=== PATIENT | female | born 1930 | race Two or more races ===

== ENCOUNTER 2017-12-23 17:35 | Inpatient (IN) | payer MEDICARE, MEDICAID ==
[~2017-12-23] VITALS: Ht 160 cm; Wt 54.4 kg
[~2017-12-23 17:35] MED LIST: ATORVASTATIN CA20 MG ORAL; CATAPRES0.1 MG ORAL; DOCUSATE SODIU100 MG ORAL; DULCOLAX10 MG RC; FAMOTIDINE20 MG ORAL; FLEET ENEMA133 ML RECTAL; FOLIC ACID1 MG ORAL; FUROSEMIDE40 MG/5 ML ORAL; HYDRALAZINE HCL25 M1 ORAL; MILK OF MA400 MG/51 ORAL; TYLENOL EXTRA500 MG ORAL; VITAMIN B COMP1 EAC2 ORAL; VITAMIN D250000 UNI1 ORAL
[2017-12-23 17:42] VITALS: BP 163/58
[2017-12-23 18:30] VITALS: BP 170/68
[2017-12-23 18:31] LABS: HEMATOCRIT 31.2 % (37.0-47.0); MEAN CORPUSCULAR VOLUME 87 FL (80-99); PLATELET COUNT 219 K/UL (150-450); RED BLOOD COUNT 3.58 M/UL (4.20-5.40); RED CELL DISTRIBUTION WIDTH 13.2 % (11.6-14.8); WHITE BLOOD COUNT 8.5 K/UL (4.8-10.8)
[2017-12-23 18:35] LABS: APPEARANCE,URINE CLEAR; BILIRUBIN, URINE NEGATIVE (NEGATIVE); GLUCOSE, URINE (UA) NEGATIVE (NEGATIVE); KETONES,URINE NEGATIVE (NEGATIVE); LEUKOCYTE ESTERASE ,URINE 2+ (NEGATIVE); NITRITE,URINE NEGATIVE (NEGATIVE); PH,URINE 5 (4.5-8.0); PROTEIN,URINE 3+ (NEGATIVE); UROBILINOGEN,URINE NORMAL MG/DL (0.0-1.0)
[2017-12-23 18:40] LABS: COLOR,URINE YELLOW
[2017-12-23 18:53] LABS: ANION GAP 9 mmol/L (5-15); BLOOD UREA NITROGEN 20 mg/dL (7-18); CALCIUM 8.8 MG/DL (8.5-10.1); CARBON DIOXIDE 29 MMOL/L (21-32); CHLORIDE 103 MMOL/L (98-107); CREATININE 1.1 MG/DL (0.55-1.30); POTASSIUM 3.9 MMOL/L (3.5-5.1); SODIUM 141 MMOL/L (136-145)
[2017-12-23 19:07] LABS: ALANINE AMINOTRANSFERASE 23 U/L (12-78); ALBUMIN 3.5 G/DL (3.4-5.0); ALBUMIN/GLOBULIN RATIO 0.7 (1.0-2.7); ALKALINE PHOSPHATASE 92 U/L (46-116); ASPARTATE AMINO TRANSFERASE 24 U/L (15-37); BILIRUBIN,TOTAL 0.2 MG/DL (0.2-1.0); CKMB 1.9 NG/ML (0.0-3.6); CREATINE KINASE 125 U/L (26-308)
[2017-12-23] MEDS ORDERED: HYDROMORPHONE HC2 M1 PO (19:08)
[2017-12-23 19:10] VITALS: BP 170/68
[2017-12-23] MEDS ORDERED: DUONEB 0.5-3(2.53 ML HHN (19:13)
[2017-12-23] MEDS ORDERED: IPRAT-ALBUT 0.5-3 ML IH (19:13)
[2017-12-23] MEDS ORDERED: Midazolam 2mg/2ml Inj IVP ONE (19:15)
[2017-12-23] MEDS ORDERED: FLEET ENEMA133 ML RECTAL (19:20)
[2017-12-23] MEDS ORDERED: FUROSEMIDE20 M1 ORAL (19:25)
[2017-12-23] MEDS ORDERED: MULTIVITAMINS1 EAC8 ORAL (19:29)
[2017-12-23] MEDS ORDERED: TRAMADOL HCL50 MG ORAL (19:30)
[2017-12-23] MEDS ORDERED: ACETAMINOPHEN325 M1 ORAL (19:36)
[2017-12-23] MEDS ORDERED: VITAMIN B COMP1 EAC7 PO (19:38)
[2017-12-23] MEDS ORDERED: VITAMIN C500 M1 ORAL (19:39)
[2017-12-23 20:27] VITALS: BP 153/58
[2017-12-23] MEDS ORDERED: Albuterol/Ipratropium 3ml neb HHN PRN (20:45)
[2017-12-23] MEDS ORDERED: Miralax 17gm pkt ORAL PRN (20:45)
[2017-12-23 22:32] VITALS: BP 157/61
[2017-12-23] MEDS ORDERED: HYDROmorphone 2mg tab ORAL PRN (23:00)
[2017-12-23 23:23] VITALS: BP 132/48
[2017-12-23] MEDS ORDERED: Heparin 5000 units/ml inj ONE (23:54)
[2017-12-23] MEDS: Heparin 5000 units/ml inj SUBQ SCH (23:56)
[2017-12-24] VITALS (15 sets, daily range): BP systolic 105–160; BP diastolic 39–72
[2017-12-24 06:25] LABS: BASOPHILS % (AUTO) 0.8 % (0.0-2.0); EOSINOPHILS % (AUTO) 0.2 % (0.0-3.0); HEMATOCRIT 30.5 % (37.0-47.0); HEMOGLOBIN 9.8 G/DL (12.0-16.0); LYMPHOCYTES % (AUTO) 8.1 % (20.0-45.0); MEAN CORPUSCULAR VOLUME 87 FL (80-99); MONOCYTES % (AUTO) 9.8 % (1.0-10.0); NEUTROPHILS % (AUTO) 81.2 % (45.0-75.0); PLATELET COUNT 242 K/UL (150-450); RED CELL DISTRIBUTION WIDTH 13.1 % (11.6-14.8)
[2017-12-24 07:04] LABS: ALBUMIN 3.2 G/DL (3.4-5.0); ANION GAP 10 mmol/L (5-15); BLOOD UREA NITROGEN 20 mg/dL (7-18); CALCIUM 8.9 MG/DL (8.5-10.1); CARBON DIOXIDE 31 MMOL/L (21-32); CHLORIDE 98 MMOL/L (98-107); CREATININE 1.2 MG/DL (0.55-1.30); PHOSPHORUS 2.8 MG/DL (2.5-4.9); POTASSIUM 3.7 MMOL/L (3.5-5.1); SODIUM 139 MMOL/L (136-145)
--- NOTE | 2017-12-24 07:09 | Emergency Room Report ---
History of Present Illness General Chief Complaint: Dyspnea/Respdistress Source: Medical Record Present Illness HPI Patient present with complaints of shortness of breath Patient appears to be sent in from nursing facility There is no other family presents Patient appears to have history of CHF Upon arrival is noncompliant Combative with the staff Patient herself does not provide any history limiting the history of present illness Unknown duration of symptoms Unknown regarding fevers Allergies: Coded Allergies: No Known Allergies (Unverified , 07/31/16) Patient History Limited by: medical condition Past Medical History: see triage record Pertinent Family History: unable to obtain Reviewed Nursing Documentation: PMH: Agreed; PSxH: Agreed Nursing Documentation-PMH Past Medical History Deferred: Pt Cognitively Impaired Past Medical History: No History, Except For Hx Hypertension: Yes Hx Diabetes: Yes - Anemia, Vitamin D deficiency Hx Dementia: Yes Review of Systems All Other Systems: limited - Other than the ones mentioned in the history of present illness all others are reviewed however they do stay limited due to the patient's mental status Physical Exam Vital Signs Date Time Temp Pulse Resp B/P (MAP) Pulse Ox O2 Delivery O2 Flow Rate FiO2 12/23/17 17:32 98.1 116 18 173/69 100 Non-Rebreather 15.0 98.1 12/23/17 18:20 50 Sp02 EP Interpretation: reviewed, normal General Appearance: moderate distress - Tachypneic, short of breath Head: normocephalic, atraumatic Eyes: bilateral eye PERRL, bilateral eye EOMI ENT: normal pharynx, no angioedema Neck: supple Respiratory: crackles - Tachypneic with crackles and rales bilateral lower lobe , patient also has audible upper airway rattling consistent with liquid Cardiovascular #1: no murmur, tachycardia Gastrointestinal: non tender, soft, no mass Musculoskeletal: normal inspection - Patient does not follow commands however moves all extremities without focal deficit Neurologic: responsive, motor strength/tone normal Skin: other - Mild edema bilaterally lower extremity Lymphatic: no adenopathy Procedures Critical Care Time Critical Care Time 45 minutes for multiple re-evaluations, critical presentation with concern for respiratory failure and cardiopulmonary arrest, not including any procedural time Medical Decision Making Diagnostic Impression: Primary Impression: Respiratory distress Additional Impression: CHF (congestive heart failure) ER Course Patient is a fairly complex patient with multiple differential to consideration including but not limited to cardiac cardiopulmonary and vascular emergencies Patient was attempted suctioning Has episodes of hypoxia Requiring BiPAP Patient's x-rays consistent with CHF Patient provided further diuretics At this time remains in critical condition Airway intubation has not been performed as the patient appears to be tolerating BiPAP well however is brittle and requires close inpatient care Labs Test 12/23/17 17:45 12/23/17 18:20 12/24/17 05:20 White Blood Count 8.5 K/UL (4.8-10.8) 8.0 K/UL (4.8-10.8) Red Blood Count 3.58 M/UL (4.20-5.40) 3.50 M/UL (4.20-5.40) Hemoglobin 10.0 G/DL (12.0-16.0) 9.8 G/DL (12.0-16.0) Hematocrit 31.2 % (37.0-47.0) 30.5 % (37.0-47.0) Mean Corpuscular Volume 87 FL (80-99) 87 FL (80-99) Mean Corpuscular Hemoglobin 27.9 PG (27.0-31.0) 27.9 PG (27.0-31.0) Mean Corpuscular Hemoglobin Concent 32.1 G/DL (32.0-36.0) 32.1 G/DL (32.0-36.0) Red Cell Distribution Width 13.2 % (11.6-14.8) 13.1 % (11.6-14.8) Platelet Count 219 K/UL (150-450) 242 K/UL (150-450) Mean Platelet Volume 5.9 FL (6.5-10.1) 7.1 FL (6.5-10.1) Neutrophils (%) (Auto) % (45.0-75.0) 81.2 % (45.0-75.0) Lymphocytes (%) (Auto) % (20.0-45.0) 8.1 % (20.0-45.0) Monocytes (%) (Auto) % (1.0-10.0) 9.8 % (1.0-10.0) Eosinophils (%) (Auto) % (0.0-3.0) 0.2 % (0.0-3.0) Basophils (%) (Auto) % (0.0-2.0) 0.8 % (0.0-2.0) Differential Total Cells Counted 100 Neutrophils % (Manual) 83 % (45-75) Lymphocytes % (Manual) 7 % (20-45) Monocytes % (Manual) 8 % (1-10) Eosinophils % (Manual) 0 % (0-3) Basophils % (Manual) 0 % (0-2) Band Neutrophils 2 % (0-8) Platelet Estimate Adequate Platelet Morphology Normal Anisocytosis 1+ Sodium Level 141 MMOL/L (136-145) 139 MMOL/L (136-145) Potassium Level 3.9 MMOL/L (3.5-5.1) 3.7 MMOL/L (3.5-5.1) Chloride Level 103 MMOL/L (98-107) 98 MMOL/L (98-107) Carbon Dioxide Level 29 MMOL/L (21-32) 31 MMOL/L (21-32) Anion Gap 9 mmol/L (5-15) 10 mmol/L (5-15) Blood Urea Nitrogen 20 mg/dL (7-18) 20 mg/dL (7-18) Creatinine 1.1 MG/DL (0.55-1.30) 1.2 MG/DL (0.55-1.30) Estimat Glomerular Filtration Rate mL/min (>60) mL/min (>60) Glucose Level 238 MG/DL (74-106) 146 MG/DL (74-106) Lactic Acid Level 1.80 mmol/L (0.66-2.22) Calcium Level 8.8 MG/DL (8.5-10.1) 8.9 MG/DL (8.5-10.1) Total Bilirubin 0.2 MG/DL (0.2-1.0) Aspartate Amino Transf (AST/SGOT) 24 U/L (15-37) Alanine Aminotransferase (ALT/SGPT) 23 U/L (12-78) Alkaline Phosphatase 92 U/L (46-116) Total Creatine Kinase 125 U/L (26-308) Creatine Kinase MB 1.9 NG/ML (0.0-3.6) Creatine Kinase MB Relative Index 1.5 Troponin I 0.000 ng/mL (0.000-0.056) 0.003 ng/mL (0.000-0.056) Pro-B-Type Natriuretic Peptide 836 pg/mL (0-125) Total Protein 8.8 G/DL (6.4-8.2) Albumin 3.5 G/DL (3.4-5.0) 3.2 G/DL (3.4-5.0) Globulin 5.3 g/dL Albumin/Globulin Ratio 0.7 (1.0-2.7) Lipase 135 U/L (73-393) Urine Color Yellow Urine Appearance Clear Urine pH 5 (4.5-8.0) Urine Specific [place] 1.020 (1.005-1.035) Urine Protein 3+ (NEGATIVE) Urine Glucose (UA) Negative (NEGATIVE) Urine Ketones Negative (NEGATIVE) Urine Occult Blood 4+ (NEGATIVE) Urine Nitrite Negative (NEGATIVE) Urine Bilirubin Negative (NEGATIVE) Urine Urobilinogen Normal MG/DL (0.0-1.0) Urine Leukocyte Esterase 2+ (NEGATIVE) Urine RBC 10-15 /HPF (0 - 2) Urine WBC 5-10 /HPF (0 - 2) Urine Squamous Epithelial Cells Few /LPF (NONE/OCC) Urine Amorphous Sediment Few /LPF (NONE) Urine Bacteria Many /HPF (NONE) Urine Yeast Few /HPF (NONE) Phosphorus Level 2.8 MG/DL (2.5-4.9) EKG Diagnostic Results Rate: normal Rhythm: NSR ST Segments: other - Nonspecific ST and T-wave changes Rhythm Strip Diag. Results EP Interpretation: yes Rate: 89 Rhythm: NSR, no PVC's, no ectopy Chest X-Ray Diagnostic Results Chest X-Ray Diagnostic Results : Chest X-Ray Ordered: Yes # of Views/Limited/Complete: 1 View EP Interpretation: Yes Interpretation: no consolidation, no pneumothorax, other - Cardiomegaly, pulmonary congestion Impression: Other - CHF Electronically Signed by: Karthik Fernandez DO Last Vital Signs Date Time Temp Pulse Resp B/P (MAP) Pulse Ox O2 Delivery O2 Flow Rate FiO2 12/24/17 06:50 137/83 12/24/17 04:41 99 21 100 Facial 30 12/24/17 04:00 15.0 12/24/17 01:00 97.0 97.0 Status: improved Disposition: ADMITTED INPATIENT Condition: Critical Referrals: NON PHYSICIAN (PCP) Karthik Fernandez DO December 24, 2017 07:09
--- NOTE | 2017-12-24 08:55 | Diagnostic Imaging Report ---
Indication: Shortness of breath Technique: One view of the chest Comparison: 08/07/2016 Findings: Patient is rotated to the right. Mild generalized interstitial prominence may be on the basis of senescent changes. No definite acute infiltrates, effusions, or congestion. Normal heart size. Tortuous calcified aorta. No significant change Impression: No definite acute process
[2017-12-24] MEDS: Heparin 5000 units/ml inj SUBQ SCH ×2 (09:27→22:03)
--- NOTE | 2017-12-24 10:03 | Diagnostic Imaging Report ---
Indication: Shortness of breath Technique: One view of the chest Comparison: 12/23/2017 Findings: Central bronchial wall thickening and prominent interstitial markings are unchanged, likely on the basis of senescent changes. Heart size is normal. Pleural spaces are clear. There is a healed fracture deformity of the left shoulder better visualized on the current exam Impression: No definite acute process. Findings as noted
--- NOTE | 2017-12-24 10:34 | History and Physical ---
History of Present Illness General Date patient seen: December 24, 2017 Reason for Hospitalization: Dyspnea/Respdistress Present Illness HPI 87 year old female with hx of COPD, HTN, care home resident presented to ER by paramedics with complaints of shortness of breath Upon arrival to ER she was Combative with the staff. Patient herself didn't not provide any history. She was in respiratory failure and was put on BIPAP and transferred to ICU. Pt is currently dyspnic and confused. She doesn't provide any further history. Allergies: Coded Allergies: No Known Allergies (Unverified , 07/31/16) Medication History Scheduled Ascorbic Acid* (Vitamin C*), 500 MG ORAL DAILY, (Reported) Atorvastatin Calcium* (Atorvastatin Calcium*), 20 MG ORAL BEDTIME, (Reported) Clonidine Hcl* (Catapres*), 0.1 MG ORAL EVERY 8 HOURS, (Reported) Docusate Sodium* (Docusate Sodium*), 100 MG ORAL DAILY, (Reported) Famotidine (Famotidine), 20 MG ORAL DAILY, (Reported) Folic Acid* (Folic Acid*), 1 MG ORAL DAILY, (Reported) Furosemide (Furosemide), 20 MG ORAL 2XW Furosemide* (Lasix*), 20 MG ORAL TWICE A WEEK, (Reported) Hydralazine Hcl* (Hydralazine Hcl*), 25 MG ORAL BID, (Reported) Ipratropium/Albuterol Sulfate (Iprat-Albut 0.5-3(2.5) Mg/3 Ml), 3 ML IH EVERY 4 HOURS, (Reported) Multivitamin With Minerals (Multivitamins With Minerals*), 1 TAB ORAL DAILY, ( Reported) Na Phos,M-B/Na Phos,Di-Ba* (Fleet Enema*), 133 ML RECTAL NEEDED, (Reported) Tramadol Hcl* (Ultram*), 50 MG ORAL ONCE, (Reported) Vit B Comp/C/Fa/Iron/Vit E (Vitamin B Complex Tablet), 1 TAB PO DAILY, (Reported ) Scheduled PRN Acetaminophen* (Tylenol Extra Strength*), 500 MG ORAL Q6H PRN for For Pain, ( Reported) Acetaminophen* (Acetaminophen 325MG Tablet*), 650 MG ORAL Q6H PRN for For Pain, (Reported) Bisacodyl (Dulcolax), 10 MG RC for Constipation, (Reported) Hydromorphone Hcl (Hydromorphone Hcl), 2 MG PO EVERY 6 HOURS PRN for For Pain, ( Reported) Magnesium Hydroxide* (Milk Of Magnesia*), 30 ML ORAL DAILY PRN for Constipation, (Reported) Discontinued Medications Ergocalciferol (Vitamin D2)* (Vitamin D*), 50,000 UNIT ORAL ONCE A WEEK, ( Reported) Discontinued Reason: Pt stopped taking med Vitamin B Complex (Vitamin B Complex), 1 CAP ORAL, (Reported) Discontinued Reason: Prescription changed Patient History Healthcare decision maker Resuscitation status Full Code Advanced Directive on File No Past Medical/Surgical History Past Medical/Surgical History: (1) HTN (hypertension) (2) COPD (chronic obstructive pulmonary disease) Review of Systems Respiratory: Reports: shortness of breath, wheezing, [place] All Other Systems: negative except mentioned in HPI Physical Exam General Appearance: cachetic Lines, tubes and drains: peripheral HEENT: normocephalic Neck: non-tender, normal alignment Respiratory/Chest: chest wall non-tender, lungs clear Breasts: no masses Cardiovascular/Chest: normal peripheral pulses Abdomen: normal bowel sounds, non tender Genitourinary/Rectal: normal genital exam, normal rectal exam, normal prostate exam Extremities: normal range of motion Last 24 Hour Vital Signs Date Time Temp Pulse Resp B/P (MAP) Pulse Ox O2 Delivery O2 Flow Rate FiO2 12/24/17 10:00 105 25 126/50 100 Nasal Cannula 3.0 12/24/17 09:00 95 127/52 100 Nasal Cannula 3.0 12/24/17 08:00 99 12/24/17 08:00 3.0 12/24/17 08:00 97 25 130/52 100 Nasal Cannula 3.0 12/24/17 07:01 117 33 100 Facial 30 12/24/17 07:00 98.4 117 25 129/72 99 Bi-pap 30 98.4 12/24/17 06:50 137/83 12/24/17 06:00 106 25 160/69 100 Bi-pap 30 12/24/17 05:00 103 26 126/61 100 Bi-pap 30 12/24/17 04:41 99 21 100 Facial 30 12/24/17 04:00 104 18 135/56 100 Bi-pap 30 12/24/17 04:00 15.0 30 12/24/17 03:00 92 18 116/56 100 Bi-pap 30 12/24/17 02:33 91 19 99 Facial 30 12/24/17 02:00 91 19 122/39 99 Bi-pap 30 12/24/17 01:09 90 18 100 Facial 30 12/24/17 01:00 97.0 109 25 116/72 100 Bi-pap 50 97.0 12/24/17 01:00 15.0 40 12/24/17 01:00 109 12/24/17 00:05 104 17 143/87 100 Bi-pap 12/23/17 23:23 98.7 99 16 132/48 100 15.0 40 98.7 12/23/17 22:53 100 17 100 Facial 40 12/23/17 22:32 98.7 107 20 157/61 100 15.0 40 98.7 12/23/17 22:00 132/68 12/23/17 20:52 15.0 40 12/23/17 20:52 108 25 100 Facial 40 12/23/17 20:27 98.7 104 24 153/58 100 Bi-pap 15.0 50 98.7 12/23/17 19:10 98.7 110 22 170/68 100 Bi-pap 15.0 50 98.7 12/23/17 18:33 114 25 Bi-pap 50 18 18:31 114 25 100 Facial 50 12/23/17 18:30 98.7 108 24 170/68 100 Non-Rebreather 15.0 50 98.7 12/23/17 18:20 15.0 50 12/23/17 17:42 118 27 Non-Rebreather 15.0 12/23/17 17:42 98.9 118 27 163/58 100 Non-Rebreather 15.0 98.9 12/23/17 17:32 98.1 116 18 173/69 100 Non-Rebreather 15.0 98.1 Intake and Output 12/23/17 12/24/17 19:00 07:00 Intake Total 0 ml Output Total 480 ml Balance -480 ml Intake Oral 0 ml Output Urine Total 480 ml # Voids 1 1 Laboratory Tests Test 12/23/17 17:45 12/23/17 18:20 12/24/17 05:20 White Blood Count 8.5 K/UL (4.8-10.8) 8.0 K/UL (4.8-10.8) Red Blood Count 3.58 M/UL (4.20-5.40) L 3.50 M/UL (4.20-5.40) L Hemoglobin 10.0 G/DL (12.0-16.0) L 9.8 G/DL (12.0-16.0) L Hematocrit 31.2 % (37.0-47.0) L 30.5 % (37.0-47.0) L Mean Corpuscular Volume 87 FL (80-99) 87 FL (80-99) Mean Corpuscular Hemoglobin 27.9 PG (27.0-31.0) 27.9 PG (27.0-31.0) Mean Corpuscular Hemoglobin Concent 32.1 G/DL (32.0-36.0) 32.1 G/DL (32.0-36.0) Red Cell Distribution Width 13.2 % (11.6-14.8) 13.1 % (11.6-14.8) Platelet Count 219 K/UL (150-450) 242 K/UL (150-450) Mean Platelet Volume 5.9 FL (6.5-10.1) L 7.1 FL (6.5-10.1) Neutrophils (%) (Auto) % (45.0-75.0) 81.2 % (45.0-75.0) H Lymphocytes (%) (Auto) % (20.0-45.0) 8.1 % (20.0-45.0) L Monocytes (%) (Auto) % (1.0-10.0) 9.8 % (1.0-10.0) Eosinophils (%) (Auto) % (0.0-3.0) 0.2 % (0.0-3.0) Basophils (%) (Auto) % (0.0-2.0) 0.8 % (0.0-2.0) Differential Total Cells Counted 100 Neutrophils % (Manual) 83 % (45-75) H Lymphocytes % (Manual) 7 % (20-45) L Monocytes % (Manual) 8 % (1-10) Eosinophils % (Manual) 0 % (0-3) Basophils % (Manual) 0 % (0-2) Band Neutrophils 2 % (0-8) Platelet Estimate Adequate Platelet Morphology Normal Anisocytosis 1+ Sodium Level 141 MMOL/L (136-145) 139 MMOL/L (136-145) Potassium Level 3.9 MMOL/L (3.5-5.1) 3.7 MMOL/L (3.5-5.1) Chloride Level 103 MMOL/L (98-107) 98 MMOL/L (98-107) Carbon Dioxide Level 29 MMOL/L (21-32) 31 MMOL/L (21-32) Anion Gap 9 mmol/L (5-15) 10 mmol/L (5-15) Blood Urea Nitrogen 20 mg/dL (7-18) H 20 mg/dL (7-18) H Creatinine 1.1 MG/DL (0.55-1.30) 1.2 MG/DL (0.55-1.30) Estimat Glomerular Filtration Rate mL/min (>60) mL/min (>60) Glucose Level 238 MG/DL (74-106) H 146 MG/DL (74-106) H Lactic Acid Level 1.80 mmol/L (0.66-2.22) Calcium Level 8.8 MG/DL (8.5-10.1) 8.9 MG/DL (8.5-10.1) Total Bilirubin 0.2 MG/DL (0.2-1.0) Aspartate Amino Transf (AST/SGOT) 24 U/L (15-37) Alanine Aminotransferase (ALT/SGPT) 23 U/L (12-78) Alkaline Phosphatase 92 U/L (46-116) Total Creatine Kinase 125 U/L (26-308) Creatine Kinase MB 1.9 NG/ML (0.0-3.6) Creatine Kinase MB Relative Index 1.5 Troponin I 0.000 ng/mL (0.000-0.056) 0.003 ng/mL (0.000-0.056) Pro-B-Type Natriuretic Peptide 836 pg/mL (0-125) H Total Protein 8.8 G/DL (6.4-8.2) H Albumin 3.5 G/DL (3.4-5.0) 3.2 G/DL (3.4-5.0) L Globulin 5.3 g/dL Albumin/Globulin Ratio 0.7 (1.0-2.7) L Lipase 135 U/L (73-393) Urine Color Yellow Urine Appearance Clear Urine pH 5 (4.5-8.0) Urine Specific [place] 1.020 (1.005-1.035) Urine Protein 3+ (NEGATIVE) H Urine Glucose (UA) Negative (NEGATIVE) Urine Ketones Negative (NEGATIVE) Urine Occult Blood 4+ (NEGATIVE) H Urine Nitrite Negative (NEGATIVE) Urine Bilirubin Negative (NEGATIVE) Urine Urobilinogen Normal MG/DL (0.0-1.0) Urine Leukocyte Esterase 2+ (NEGATIVE) H Urine RBC 10-15 /HPF (0 - 2) H Urine WBC 5-10 /HPF (0 - 2) H Urine Squamous Epithelial Cells Few /LPF (NONE/OCC) Urine Amorphous Sediment Few /LPF (NONE) H Urine Bacteria Many /HPF (NONE) H Urine Yeast Few /HPF (NONE) H Phosphorus Level 2.8 MG/DL (2.5-4.9) Microbiology Date/Time Source Procedure Growth Status 12/23/17 18:20 Urine,Clean Catch Urine Culture - Preliminary Resulted Height (Feet): 5 Height (Inches): 3.00 Weight (Pounds): 119 Medications Current Medications Medications (Trade) Dose Ordered Sig/Janessa Route PRN Reason Start Time Stop Time Status Last Admin Dose Admin Acetaminophen (Tylenol) 650 mg Q4H PRN ORAL T>100.5 12/23/17 20:45 01/22/18 20:44 Albuterol/ Ipratropium (Albuterol/ Ipratropium) 3 ml Q4H PRN HHN Shortness of Breath 12/23/17 20:45 12/28/17 20:44 Clonidine HCl (Catapres Tab) 0.1 mg EVERY 8 HOURS ORAL 12/23/17 22:00 01/22/18 21:59 12/24/17 06:50 Dextrose (Dextrose 50%) 25 ml ONCE PRN IV Hypoglycemia 12/23/17 21:00 01/22/18 20:59 Dextrose (Dextrose 50%) 50 ml ONCE PRN IV hypoglycemia 12/23/17 21:00 01/22/18 20:59 Furosemide (Lasix) 40 mg EVERY 8 HOURS IV 12/24/17 06:00 01/23/18 05:59 12/24/17 06:03 Heparin Sodium (Porcine) (Heparin 5000 units/ml) 5,000 units EVERY 12 HOURS SUBQ 12/23/17 23:00 01/22/18 22:59 12/24/17 09:27 Hydromorphone HCl (Dilaudid) 2 mg Q6H PRN ORAL For Pain > 7 12/23/17 23:00 12/30/17 22:59 Ondansetron HCl (Zofran) 4 mg Q6H PRN IVP Nausea & Vomiting 12/23/17 20:45 01/22/18 20:44 Polyethylene Glycol (Miralax) 17 gm DAILYPRN PRN ORAL Constipation 12/23/17 20:45 01/22/18 20:44 Temazepam (Restoril) 15 mg HSPRN PRN ORAL Insomnia 12/23/17 21:00 12/30/17 20:59 12/24/17 01:00 Assessment/Plan Problem List: (1) Acute respiratory failure ICD Codes: J96.00 - Acute respiratory failure, unspecified whether with hypoxia or hypercapnia SNOMED: 01295225 (2) COPD (chronic obstructive pulmonary disease) ICD Codes: J44.9 - Chronic obstructive pulmonary disease, unspecified SNOMED: 83498998 (3) HTN (hypertension) ICD Codes: I10 - Essential (primary) hypertension SNOMED: 06435662 Respiratory: monitor respiratory rate, adjust FIO2 Cardiac: continue to monitor HR/BP Renal: F/U I&O, keep IV fluid Infectious Disease: check cultures Gastrointestinal: start feedings Endocrine: monitor blood sugar Hematologic: monitor H/H Neurologic: PRN Ativan, PRN Morphine Prophylaxis: Protonix, Heparin Time Spent (Minutes): 40 Notes Reviewed: nurse researcher, cardio Discussed with: nurses, consultants, caser in Maureen Perkins MD December 24, 2017 10:34
[2017-12-24] MEDS ORDERED: Promethazine/Codeine 5ml UD ORAL PRN ×2 (11:00→15:00)
--- NOTE | 2017-12-24 11:02 | Consultation ---
History of Present Illness General Date patient seen: December 24, 2017 Chief Complaint: Dyspnea/Respdistress Present Illness HPI 87 year old female with hx of COPD, HTN, and dementia half-way resident presented to ER by paramedics with complaints of shortness of breath. the pt is confused and pw waxing and waning of consciousness and hallucinating Allergies: Coded Allergies: No Known Allergies (Unverified , 07/31/16) Medication History Scheduled Ascorbic Acid* (Vitamin C*), 500 MG ORAL DAILY, (Reported) Atorvastatin Calcium* (Atorvastatin Calcium*), 20 MG ORAL BEDTIME, (Reported) Clonidine Hcl* (Catapres*), 0.1 MG ORAL EVERY 8 HOURS, (Reported) Docusate Sodium* (Docusate Sodium*), 100 MG ORAL DAILY, (Reported) Famotidine (Famotidine), 20 MG ORAL DAILY, (Reported) Folic Acid* (Folic Acid*), 1 MG ORAL DAILY, (Reported) Furosemide (Furosemide), 20 MG ORAL 2XW Furosemide* (Lasix*), 20 MG ORAL TWICE A WEEK, (Reported) Hydralazine Hcl* (Hydralazine Hcl*), 25 MG ORAL BID, (Reported) Ipratropium/Albuterol Sulfate (Iprat-Albut 0.5-3(2.5) Mg/3 Ml), 3 ML IH EVERY 4 HOURS, (Reported) Multivitamin With Minerals (Multivitamins With Minerals*), 1 TAB ORAL DAILY, ( Reported) Na Phos,M-B/Na Phos,Di-Ba* (Fleet Enema*), 133 ML RECTAL NEEDED, (Reported) Tramadol Hcl* (Ultram*), 50 MG ORAL ONCE, (Reported) Vit B Comp/C/Fa/Iron/Vit E (Vitamin B Complex Tablet), 1 TAB PO DAILY, (Reported ) Scheduled PRN Acetaminophen* (Tylenol Extra Strength*), 500 MG ORAL Q6H PRN for For Pain, ( Reported) Acetaminophen* (Acetaminophen 325MG Tablet*), 650 MG ORAL Q6H PRN for For Pain, (Reported) Bisacodyl (Dulcolax), 10 MG RC for Constipation, (Reported) Hydromorphone Hcl (Hydromorphone Hcl), 2 MG PO EVERY 6 HOURS PRN for For Pain, ( Reported) Magnesium Hydroxide* (Milk Of Magnesia*), 30 ML ORAL DAILY PRN for Constipation, (Reported) Discontinued Medications Ergocalciferol (Vitamin D2)* (Vitamin D*), 50,000 UNIT ORAL ONCE A WEEK, ( Reported) Discontinued Reason: Pt stopped taking med Vitamin B Complex (Vitamin B Complex), 1 CAP ORAL, (Reported) Discontinued Reason: Prescription changed Patient History Healthcare decision maker Resuscitation status Full Code Advanced Directive on File No Past Medical/Surgical History Past Medical/Surgical History: (1) Gram-positive bacteremia (2) Diabetes (3) Acute non Q wave AL (myocardial infarction), initial episode of care (4) LUKASZ (acute kidney injury) (5) Acute bronchiolitis (6) Cystitis (7) SOB (shortness of breath) (8) CHF (congestive heart failure) (9) Respiratory distress (10) COPD (chronic obstructive pulmonary disease) (11) HTN (hypertension) (12) Acute respiratory failure Review of Systems Psychiatric: Reports: anxiety, emotional problems, hallucinations Physical Exam General Appearance: no apparent distress, alert, confused, agitated Last 24 Hour Vital Signs Date Time Temp Pulse Resp B/P (MAP) Pulse Ox O2 Delivery O2 Flow Rate FiO2 12/24/17 10:00 105 25 126/50 100 Nasal Cannula 3.0 12/24/17 09:00 95 127/52 100 Nasal Cannula 3.0 12/24/17 08:00 99 12/24/17 08:00 3.0 12/24/17 08:00 97 25 130/52 100 Nasal Cannula 3.0 12/24/17 07:01 117 33 100 Facial 30 12/24/17 07:00 98.4 117 25 129/72 99 Bi-pap 30 98.4 12/24/17 06:50 137/83 12/24/17 06:00 106 25 160/69 100 Bi-pap 30 12/24/17 05:00 103 26 126/61 100 Bi-pap 30 12/24/17 04:41 99 21 100 Facial 30 12/24/17 04:00 104 18 135/56 100 Bi-pap 30 12/24/17 04:00 15.0 30 12/24/17 03:00 92 18 116/56 100 Bi-pap 30 12/24/17 02:33 91 19 99 Facial 30 12/24/17 02:00 91 19 122/39 99 Bi-pap 30 12/24/17 01:09 90 18 100 Facial 30 12/24/17 01:00 97.0 109 25 116/72 100 Bi-pap 50 97.0 12/24/17 01:00 15.0 40 12/24/17 01:00 109 12/24/17 00:05 104 17 143/87 100 Bi-pap 12/23/17 23:23 98.7 99 16 132/48 100 15.0 40 98.7 12/23/17 22:53 100 17 100 Facial 40 12/23/17 22:32 98.7 107 20 157/61 100 15.0 40 98.7 12/23/17 22:00 132/68 12/23/17 20:52 15.0 40 12/23/17 20:52 108 25 100 Facial 40 12/23/17 20:27 98.7 104 24 153/58 100 Bi-pap 15.0 50 98.7 12/23/17 19:10 98.7 110 22 170/68 100 Bi-pap 15.0 50 98.7 12/23/17 18:33 114 25 Bi-pap 50 12/23/17 18:31 114 25 100 Facial 50 12/23/17 18:30 98.7 108 24 170/68 100 Non-Rebreather 15.0 50 98.7 12/23/17 18:20 15.0 50 12/23/17 17:42 118 27 Non-Rebreather 15.0 12/23/17 17:42 98.9 118 27 163/58 100 Non-Rebreather 15.0 98.9 12/23/17 17:32 98.1 116 18 173/69 100 Non-Rebreather 15.0 98.1 Intake and Output 12/23/17 12/24/17 19:00 07:00 Intake Total 0 ml Output Total 480 ml Balance -480 ml Intake Oral 0 ml Output Urine Total 480 ml # Voids 1 1 Laboratory Tests Test 12/23/17 17:45 12/23/17 18:20 12/24/17 05:20 White Blood Count 8.5 K/UL (4.8-10.8) 8.0 K/UL (4.8-10.8) Red Blood Count 3.58 M/UL (4.20-5.40) L 3.50 M/UL (4.20-5.40) L Hemoglobin 10.0 G/DL (12.0-16.0) L 9.8 G/DL (12.0-16.0) L Hematocrit 31.2 % (37.0-47.0) L 30.5 % (37.0-47.0) L Mean Corpuscular Volume 87 FL (80-99) 87 FL (80-99) Mean Corpuscular Hemoglobin 27.9 PG (27.0-31.0) 27.9 PG (27.0-31.0) Mean Corpuscular Hemoglobin Concent 32.1 G/DL (32.0-36.0) 32.1 G/DL (32.0-36.0) Red Cell Distribution Width 13.2 % (11.6-14.8) 13.1 % (11.6-14.8) Platelet Count 219 K/UL (150-450) 242 K/UL (150-450) Mean Platelet Volume 5.9 FL (6.5-10.1) L 7.1 FL (6.5-10.1) Neutrophils (%) (Auto) % (45.0-75.0) 81.2 % (45.0-75.0) H Lymphocytes (%) (Auto) % (20.0-45.0) 8.1 % (20.0-45.0) L Monocytes (%) (Auto) % (1.0-10.0) 9.8 % (1.0-10.0) Eosinophils (%) (Auto) % (0.0-3.0) 0.2 % (0.0-3.0) Basophils (%) (Auto) % (0.0-2.0) 0.8 % (0.0-2.0) Differential Total Cells Counted 100 Neutrophils % (Manual) 83 % (45-75) H Lymphocytes % (Manual) 7 % (20-45) L Monocytes % (Manual) 8 % (1-10) Eosinophils % (Manual) 0 % (0-3) Basophils % (Manual) 0 % (0-2) Band Neutrophils 2 % (0-8) Platelet Estimate Adequate Platelet Morphology Normal Anisocytosis 1+ Sodium Level 141 MMOL/L (136-145) 139 MMOL/L (136-145) Potassium Level 3.9 MMOL/L (3.5-5.1) 3.7 MMOL/L (3.5-5.1) Chloride Level 103 MMOL/L (98-107) 98 MMOL/L (98-107) Carbon Dioxide Level 29 MMOL/L (21-32) 31 MMOL/L (21-32) Anion Gap 9 mmol/L (5-15) 10 mmol/L (5-15) Blood Urea Nitrogen 20 mg/dL (7-18) H 20 mg/dL (7-18) H Creatinine 1.1 MG/DL (0.55-1.30) 1.2 MG/DL (0.55-1.30) Estimat Glomerular Filtration Rate mL/min (>60) mL/min (>60) Glucose Level 238 MG/DL (74-106) H 146 MG/DL (74-106) H Lactic Acid Level 1.80 mmol/L (0.66-2.22) Calcium Level 8.8 MG/DL (8.5-10.1) 8.9 MG/DL (8.5-10.1) Total Bilirubin 0.2 MG/DL (0.2-1.0) Aspartate Amino Transf (AST/SGOT) 24 U/L (15-37) Alanine Aminotransferase (ALT/SGPT) 23 U/L (12-78) Alkaline Phosphatase 92 U/L (46-116) Total Creatine Kinase 125 U/L (26-308) Creatine Kinase MB 1.9 NG/ML (0.0-3.6) Creatine Kinase MB Relative Index 1.5 Troponin I 0.000 ng/mL (0.000-0.056) 0.003 ng/mL (0.000-0.056) Pro-B-Type Natriuretic Peptide 836 pg/mL (0-125) H Total Protein 8.8 G/DL (6.4-8.2) H Albumin 3.5 G/DL (3.4-5.0) 3.2 G/DL (3.4-5.0) L Globulin 5.3 g/dL Albumin/Globulin Ratio 0.7 (1.0-2.7) L Lipase 135 U/L (73-393) Urine Color Yellow Urine Appearance Clear Urine pH 5 (4.5-8.0) Urine Specific [place] 1.020 (1.005-1.035) Urine Protein 3+ (NEGATIVE) H Urine Glucose (UA) Negative (NEGATIVE) Urine Ketones Negative (NEGATIVE) Urine Occult Blood 4+ (NEGATIVE) H Urine Nitrite Negative (NEGATIVE) Urine Bilirubin Negative (NEGATIVE) Urine Urobilinogen Normal MG/DL (0.0-1.0) Urine Leukocyte Esterase 2+ (NEGATIVE) H Urine RBC 10-15 /HPF (0 - 2) H Urine WBC 5-10 /HPF (0 - 2) H Urine Squamous Epithelial Cells Few /LPF (NONE/OCC) Urine Amorphous Sediment Few /LPF (NONE) H Urine Bacteria Many /HPF (NONE) H Urine Yeast Few /HPF (NONE) H Phosphorus Level 2.8 MG/DL (2.5-4.9) Microbiology Date/Time Source Procedure Growth Status 12/23/17 18:20 Urine,Clean Catch Urine Culture - Preliminary Resulted Height (Feet): 5 Height (Inches): 3.00 Weight (Pounds): 119 Medications Current Medications Medications (Trade) Dose Ordered Sig/Janessa Route PRN Reason Start Time Stop Time Status Last Admin Dose Admin Acetaminophen (Tylenol) 650 mg Q4H PRN ORAL T>100.5 12/23/17 20:45 01/22/18 20:44 Albuterol/ Ipratropium (Albuterol/ Ipratropium) 3 ml Q4H PRN HHN Shortness of Breath 12/23/17 20:45 12/28/17 20:44 Clonidine HCl (Catapres Tab) 0.1 mg EVERY 8 HOURS ORAL 12/23/17 22:00 01/22/18 21:59 12/24/17 06:50 Dextrose (Dextrose 50%) 25 ml ONCE PRN IV Hypoglycemia 12/23/17 21:00 01/22/18 20:59 Dextrose (Dextrose 50%) 50 ml ONCE PRN IV hypoglycemia 12/23/17 21:00 01/22/18 20:59 Heparin Sodium (Porcine) (Heparin 5000 units/ml) 5,000 units EVERY 12 HOURS SUBQ 12/23/17 23:00 01/22/18 22:59 12/24/17 09:27 Levofloxacin 150 ml @ 100 mls/hr Q48H IVPB 12/25/17 21:00 01/01/18 20:59 Methylprednisolone Sodium Succinate (Solu-MEDROL) 60 mg EVERY 6 HOURS IV 12/24/17 12:00 01/23/18 11:59 Ondansetron HCl (Zofran) 4 mg Q6H PRN IVP Nausea & Vomiting 12/23/17 20:45 01/22/18 20:44 Polyethylene Glycol (Miralax) 17 gm DAILYPRN PRN ORAL Constipation 12/23/17 20:45 01/22/18 20:44 Promethazine HCl/ Codeine (Phenergan with Codeine) 5 ml Q4H PRN ORAL For Cough 12/24/17 11:00 01/23/18 10:59 Temazepam (Restoril) 15 mg HSPRN PRN ORAL Insomnia 12/23/17 21:00 12/30/17 20:59 12/24/17 01:00 Theophylline (Ramesh-Dur) 100 mg EVERY 12 HOURS ORAL 12/24/17 21:00 01/23/18 20:59 Assessment/Plan Status: stable Assessment/Plan dementia with behavioral dist encephalopathy -zyprexa 5mg q6 prn Bismark Jung M.D. December 24, 2017 11:02
[2017-12-24] MEDS ORDERED: Solu-MEDROL 125mg Inj IV SCH (12:00)
--- NOTE | 2017-12-24 12:48 | Consultation ---
Consult Note Consult Note # [id number] Brayan Washburn MD December 24, 2017 12:48
[2017-12-24] MEDS ORDERED: Albuterol/Ipratropium 3ml neb HHN PRN (16:45)
[2017-12-24] MEDS: Solu-MEDROL 125mg Inj IV SCH ×2 (17:08→23:02)
--- NOTE | 2017-12-24 17:15 | Consultation ---
DATE OF CONSULTATION: 12/24/2017 INFECTIOUS DISEASE CONSULTATION CONSULTING PHYSICIAN: Brayan Washburn M.D. REFERRING PHYSICIAN: Maureen Perkins M.D. REASON FOR CONSULT: Evaluation of the patient for sepsis, pneumonia, and antibiotic management. HISTORY OF PRESENT ILLNESS: The patient is an 87-year-old female with multiple medical problems as listed below who was admitted to this medical center for shortness of breath. The patient was transferred to ICU for further observation and was started on BiPAP. The patient is afebrile. Chest x-ray showed central bronchial wall thickening and prominent interstitial markings. Infectious Diseases consultation has been requested for evaluation of the patient for bronchitis/pneumonia. PAST MEDICAL HISTORY: 1. CAD/CHF. 2. Hypertension. 3. GERD. 4. Diabetes. 5. Anemia. MEDICATION: Solu-Medrol and Levaquin. ALLERGIES: No known drug allergies. SOCIAL HISTORY: No history of alcohol or drug abuse. FAMILY HISTORY: Unavailable. REVIEW OF SYSTEMS: The patient is a poor historian. Much of the information I was able to gather as mentioned above. PHYSICAL EXAMINATION: VITAL SIGNS: Temperature 99.4 degrees, blood pressure , pulse 86, and respiratory rate 18. HEENT: No icterus. NECK: No lymphadenopathy. CHEST: Coarse breathing sounds/bilateral wheezes at the bases. HEART: S1 and S2. ABDOMEN: Soft, nontender. EXTREMITY: No cyanosis. NEUROLOGICAL: Awake. SKIN: No open wound. LABORATORY AND DIAGNOSTIC DATA: White blood cells 8, hemoglobin 9, platelets 242. UA, 5 to 10 white blood cells and 10 to 15 red blood cells. BUN 20 and creatinine 1.2. ALT, AST, and alkaline phosphatase unremarkable. Lipase is 135. Urine culture is pending. Chest x-ray, suggestive of bronchitis. No acute infiltrate. ASSESSMENT: The patient is an 87-year-old female with 1. Bronchitis/COPD exacerbation. 2. Afebrile. 3. Abnormal white blood cells. PLAN: 1. We will continue the patient on Levaquin day /. 2. Monitor CBC. 3. Monitor BMP. 4. Monitor culture. 5. Chest x-ray. 6. Continue respiratory support. 7. Based on the patient's clinical course and labs, we will do further recommendations. Thank you, Dr. Perkins, for allowing me to care this patient. I will follow the patient with you during this hospitalization. Brayan Washburn M.D. DR: BRENNA JOB#: [id number] CC:
[2017-12-24] MEDS ORDERED: Miralax 17gm pkt ORAL PRN (20:45)
[2017-12-24] MEDS ORDERED: Theophylline ER 100mg ORAL SCH (21:00)
[2017-12-24] MEDS: Theophylline ER 100mg ORAL SCH (22:01)
[2017-12-25] VITALS (7 sets, daily range): BP systolic 101–143; BP diastolic 54–78
--- NOTE | 2017-12-25 03:00 | Consultation ---
DATE OF CONSULTATION: 12/24/2017 NOTE: POOR AUDIO HEMATOLOGY/ONCOLOGY CONSULTATION CONSULTING PHYSICIAN: Asa Burrell M.D. REFERRING PHYSICIAN: Maureen Perkins M.D. REASON FOR CONSULTATION: Evaluation of ongoing anemia. IDENTIFYING DATA: Dear Dr. Perkins, The patient is an 87-year-old female with past medical history significant for COPD, history of hypertension, long-term resident, at this time presents to the ER by paramedics with complaints of shortness of breath. At the time of arrival, she was combative was in respiratory distress, placed on BiPAP, transferred to the ICU, noted to be anemic. Therefore, Hematology Service consulted for further evaluation and treatment. Creatinine of 1.2. INR of 1. Hematology Service consulted for further evaluation and treatment. PAST MEDICAL HISTORY: COPD, hypertension, and long-term resident. ALLERGIES: No known drug allergies. MEDICATIONS: Folic acid, Lipitor, clonidine, , Lasix, hydralazine, Atrovent, multivitamin, and Tramadol. FAMILY HISTORY: Noncontributory. SURGICAL HISTORY: None noted. REVIEW OF SYSTEMS: CONSTITUTIONAL: Shortness of breath, fatigue, and wheezing noted. SKIN: No rashes, bumps, or itching. HEENT: No headache, hearing or vision changes. BREASTS: No lumps, pain, or discharge. PULMONARY: Cough. She has shortness of breath. GASTROINTESTINAL: No nausea, vomiting, or diarrhea. GENITOURINARY: No dysuria, frequency, or urgency. MUSCULOSKELETAL: No joint swelling, muscle pain, or trauma. PHYSICAL EXAMINATION: VITAL SIGNS: Reviewed. GENERAL: No distress. LUNGS: Decreased breath sounds. CARDIOVASCULAR: Regular rate. No S3 or S4. ABDOMEN: Soft and nontender. EXTREMITIES: No cyanosis, swelling, or edema. LABORATORY AND DIAGNOSTIC DATA: WBC 18, hemoglobin 9.8, hematocrit 31, and platelet count 150,000. BUN of 20 and creatinine 1.2. Urinalysis reviewed, otherwise negative for UTI. Imaging reviewed. Duplex of the lower extremity is negative for DVT, reviewed by . ASSESSMENT AND RECOMMENDATION: 1. Anemia due to underlying chronic disease. Evaluate for leukopenia. 2. . Workup has been ordered by Dr. Perkins and full workup has been added. Appreciate the consultation. 3. Neutrophilia. . Continue to closely monitor for improvement. 4. Azotemia, potentially secondary to dehydration. 5. Chronic obstructive pulmonary disease, currently some shortness of breath noted, dyspnea on exertion. 6. long-term resident. Continue to closely monitor for improvement. 7. Hypertension, systolic blood pressure goal less than 140. I appreciate the consultation. Asa Burrell M.D. DR: LICHA JOB#: [id number] CC:
[2017-12-25 03:36] LABS: HEMATOCRIT 34.2 % (37.0-47.0); HEMOGLOBIN 10.9 G/DL (12.0-16.0); MEAN CORPUSCULAR VOLUME 86 FL (80-99); PLATELET COUNT 268 K/UL (150-450); RED CELL DISTRIBUTION WIDTH 13.2 % (11.6-14.8); WHITE BLOOD COUNT 6.7 K/UL (4.8-10.8)
[2017-12-25 03:56] LABS: LACTATE DEHYDROGENASE 195 U/L (81-234)
[2017-12-25 04:39] LABS: % IRON SATURATION 8 % (15-50); IRON 24 ug/dL (50-175); TOTAL IRON BINDING CAPACITY 289 ug/dL (250-450)
[2017-12-25] MEDS: Solu-MEDROL 125mg Inj IV SCH ×2 (06:14→20:20)
[2017-12-25] MEDS: Theophylline ER 100mg ORAL SCH ×2 (08:23→20:20)
[2017-12-25] MEDS: Heparin 5000 units/ml inj SUBQ SCH ×2 (08:24→20:22)
--- NOTE | 2017-12-25 12:23 | Pulmonology Progress Note ---
Assessment/Plan Problems: (1) Acute respiratory failure (2) COPD (chronic obstructive pulmonary disease) (3) HTN (hypertension) (4) At high risk for aspiration Assessment/Plan tried to call Patient's POA is Fely Rush [phone]. Nobody picked up the phone continue respiratory treatment pt is high risk at aspiration check sputum aspiration precaution taper steroids continue abx d/w speech pathologist Subjective ROS Limited/Unobtainable: No Constitutional: Reports: no symptoms HEENT: Repors: no symptoms Respiratory: Reports: no symptoms Allergies: Coded Allergies: No Known Allergies (Unverified , 07/31/16) Objective Last 24 Hour Vital Signs Date Time Temp Pulse Resp B/P (MAP) Pulse Ox O2 Delivery O2 Flow Rate FiO2 12/25/17 08:12 Nasal Cannula 3.0 32 12/25/17 08:00 96.6 87 20 143/68 94 Nasal Cannula 3.0 96.6 12/25/17 07:50 91 12/25/17 07:45 95 Nasal Cannula 3.0 32 12/25/17 06:35 85 18 Nasal Cannula 2.0 28 12/25/17 06:12 136/66 12/25/17 05:39 91 20 99 Nasal Cannula 2.0 28 12/25/17 05:25 73 20 95 Nasal Cannula 2.0 28 12/25/17 04:00 98.1 84 19 136/66 95 Nasal Cannula 3.0 98.1 12/25/17 03:37 72 12/25/17 00:00 98.5 77 18 101/59 99 Nasal Cannula 3.0 98.5 12/25/17 00:00 67 12/24/17 23:02 116/59 12/24/17 20:00 98.1 81 19 116/59 98 Nasal Cannula 3.0 98.1 12/24/17 20:00 3.0 12/24/17 19:36 81 18 Nasal Cannula 2.0 28 12/24/17 19:36 96 Nasal Cannula 3.0 32 12/24/17 19:36 Nasal Cannula 3.0 32 12/24/17 19:28 82 12/24/17 16:00 81 12/24/17 16:00 3.0 12/24/17 14:46 96 12/24/17 14:44 141/44 12/24/17 14:00 87 22 134/57 98 Nasal Cannula 3.0 12/24/17 13:09 Nasal Cannula 3.0 32 12/24/17 13:09 97 Nasal Cannula 3.0 32 12/24/17 13:00 95 22 141/44 98 Nasal Cannula 3.0 12/24/17 12:57 98 Intake and Output 12/24/17 12/25/17 19:00 07:00 Intake Total 30 ml 20 ml Output Total 300 ml Balance -270 ml 20 ml Intake Oral 30 ml 20 ml Output Urine Total 300 ml # Voids 1 2 General Appearance: cachetic HEENT: normocephalic, atraumatic Respiratory/Chest: chest wall non-tender, crackles/rales Cardiovascular: normal peripheral pulses, regular rhythm Abdomen: soft, non tender, no organomegaly Genitourinary: normal external genitalia Microbiology Date/Time Source Procedure Growth Status 12/23/17 18:00 Blood Blood Culture - Preliminary NO GROWTH AFTER 24 HOURS Resulted 12/23/17 17:45 Blood Blood Culture - Preliminary NO GROWTH AFTER 24 HOURS Resulted 12/24/17 11:00 Sputum Gram Stain - Final Resulted 12/24/17 11:00 Sputum Sputum Culture - Preliminary NORMAL UPPER RESPIRATORY JONE AT 24 ... Resulted 12/23/17 18:20 Urine,Clean Catch Urine Culture - Preliminary Mixed Urogenital Contaminants Resulted Laboratory Tests 12/24/17 18:10: Fibrinogen 805H 12/25/17 03:10: White Blood Count 6.7, Red Blood Count 4.00L, Hemoglobin 10.9L, Hematocrit 34.2L , Mean Corpuscular Volume 86, Mean Corpuscular Hemoglobin 27.2, Mean Corpuscular Hemoglobin Concent 31.8L, Red Cell Distribution Width 13.2, Platelet Count 268, Mean Platelet Volume 6.7, Neutrophils (%) (Auto) , Lymphocytes (%) (Auto) , Monocytes (%) (Auto) , Eosinophils (%) (Auto) , Basophils (%) (Auto) , Erythrocyte Sedimentation Rate 110H, Reticulocyte Count 0.4, Prothrombin Time 10.2, Prothromb Time International Ratio 1.0, Activated Partial Thromboplast Time 33, Iron Level 24L, Total Iron Binding Capacity 289, Percent Iron Saturation 8L, Unsaturated Iron Binding 265, Lactate Dehydrogenase 195, Troponin I 0.000, Carcinoembryonic Antigen [Pending], Vitamin B12 Level 748 , Folate 84.6H Current Medications Medications (Trade) Dose Ordered Sig/Janessa Route PRN Reason Start Time Stop Time Status Last Admin Dose Admin Acetaminophen (Tylenol) 650 mg Q4H PRN ORAL T>100.5 12/24/17 16:45 01/22/18 20:44 Albuterol/ Ipratropium (Albuterol/ Ipratropium) 3 ml Q4H PRN HHN Shortness of Breath 12/24/17 16:45 12/28/17 20:44 12/25/17 05:26 Clonidine HCl (Catapres Tab) 0.1 mg EVERY 8 HOURS ORAL 12/24/17 14:00 01/22/18 21:59 12/25/17 06:12 Heparin Sodium (Porcine) (Heparin 5000 units/ml) 5,000 units EVERY 12 HOURS SUBQ 12/24/17 21:00 01/22/18 22:59 12/25/17 08:24 Levofloxacin 150 ml @ 100 mls/hr Q48H IVPB 12/25/17 21:00 01/01/18 20:59 Methylprednisolone Sodium Succinate (Solu-MEDROL) 60 mg EVERY 6 HOURS IV 12/24/17 18:00 01/23/18 11:59 12/25/17 06:14 Olanzapine (ZyPREXA) 5 mg Q6H PRN ORAL agitation 12/24/17 18:45 01/23/18 12:34 12/25/17 06:12 Ondansetron HCl (Zofran) 4 mg Q6H PRN IVP Nausea & Vomiting 12/24/17 14:45 01/22/18 20:44 Polyethylene Glycol (Miralax) 17 gm DAILYPRN PRN ORAL Constipation 12/24/17 20:45 01/22/18 20:44 Promethazine HCl/ Codeine (Phenergan with Codeine) 5 ml Q4H PRN ORAL For Cough 12/24/17 15:00 01/23/18 10:59 Temazepam (Restoril) 15 mg HSPRN PRN ORAL Insomnia 12/24/17 21:00 12/30/17 20:59 Theophylline (Ramesh-Dur) 100 mg EVERY 12 HOURS ORAL 12/24/17 21:00 01/23/18 20:59 12/25/17 08:23 Maureen Perkins MD December 25, 2017 12:23
--- NOTE | 2017-12-25 12:56 | Cardiology Report ---
APPROVED REPORT EKG Measurement Heart [id number] Sinus tachycardia Otherwise normal ECG
--- NOTE | 2017-12-25 12:58 | Cardiology Report ---
APPROVED REPORT EXAM: Two-dimensional and M-mode echocardiogram with Doppler and color Doppler. INDICATION Left Ventricular Function Other Information Technically difficult and limited 2-D echo study due to poor acoustical windows. Dextrocardia. Study quality precludes accurate assessment of regional wall motion. M-mode measurements of left ventricle not obtainable due to cardiac position (angle) Normal left ventricular chamber size, systolic function and wall motion to extent visualized. Left ventricular ejection fraction estimated to be grossly normal. There appears to be mild left ventricular hypertrophy. Anterior Echo-free space, may be due to pericardial fat or effusion. All other cardiac chamber sizes appear to be within normal limits. Focal aortic valve sclerosis with adequate cusp excursion. Thickened mitral valve leaflets with normal excursion. Mild mitral annulus and aortic root calcification. Pulmonic valve not visualized. Normal tricuspid valve structure. Subcostal IVC view not obtainable. A color flow and spectral Doppler study was performed and revealed: Mild tricuspid regurgitation. Tricuspid systolic velocities suggests peak right ventricular systolic pressure of 49 mmHg, consistent with moderate pulmonary hypertension.
--- NOTE | 2017-12-25 13:24 | Infectious Diseases Prog Note ---
Assessment/Plan Assessment/Plan ASSESSMENT: The patient is an 87-year-old female with Bronchitis/COPD exacerbation Chest x-ray: bronchitis. No acute infiltrate Afebrile. Abnormal white blood cells. ALT, AST, and alkaline phosphatase: unremarkable. Urine culture: pending CAD/CHF Hypertension GERD. Diabetes Anemia PLAN: continue the patient on Levaquin day # 3 / 5 Monitor CBC. Monitor BMP. Monitor culture. Chest x-ray. Continue respiratory support Subjective Constitutional: Denies: no symptoms, fever, chills, fatigue, anorexia, drenching sweats, other Allergies: Coded Allergies: No Known Allergies (Unverified , 07/31/16) Objective Vital Signs Last 24 Hour Vital Signs Date Time Temp Pulse Resp B/P (MAP) Pulse Ox O2 Delivery O2 Flow Rate FiO2 12/25/17 12:00 97.2 85 20 112/56 94 Nasal Cannula 3.0 97.2 12/25/17 08:12 Nasal Cannula 3.0 32 12/25/17 08:00 96.6 87 20 143/68 94 Nasal Cannula 3.0 96.6 12/25/17 07:50 91 12/25/17 07:45 95 Nasal Cannula 3.0 32 12/25/17 06:35 85 18 Nasal Cannula 2.0 28 12/25/17 06:12 136/66 12/25/17 05:39 91 20 99 Nasal Cannula 2.0 28 12/25/17 05:25 73 20 95 Nasal Cannula 2.0 28 12/25/17 04:00 98.1 84 19 136/66 95 Nasal Cannula 3.0 98.1 12/25/17 03:37 72 12/25/17 00:00 98.5 77 18 101/59 99 Nasal Cannula 3.0 98.5 12/25/17 00:00 67 12/24/17 23:02 116/59 12/24/17 20:00 98.1 81 19 116/59 98 Nasal Cannula 3.0 98.1 12/24/17 20:00 3.0 12/24/17 19:36 81 18 Nasal Cannula 2.0 28 12/24/17 19:36 96 Nasal Cannula 3.0 32 12/24/17 19:36 Nasal Cannula 3.0 32 12/24/17 19:28 82 12/24/17 16:00 81 12/24/17 16:00 3.0 12/24/17 14:46 96 12/24/17 14:44 141/44 12/24/17 14:00 87 22 134/57 98 Nasal Cannula 3.0 Height (Feet): 5 Height (Inches): 3.00 Weight (Pounds): 121 HEENT: anicteric Respiratory/Chest: no accessory muscle use Cardiovascular: regularly irregular Abdomen: non distended Microbiology Date/Time Source Procedure Growth Status 12/23/17 18:00 Blood Blood Culture - Preliminary NO GROWTH AFTER 24 HOURS Resulted 12/23/17 17:45 Blood Blood Culture - Preliminary NO GROWTH AFTER 24 HOURS Resulted 12/24/17 11:00 Sputum Gram Stain - Final Resulted 12/24/17 11:00 Sputum Sputum Culture - Preliminary NORMAL UPPER RESPIRATORY JONE AT 24 ... Resulted 12/23/17 18:20 Urine,Clean Catch Urine Culture - Preliminary Mixed Urogenital Contaminants Resulted Laboratory Tests Test 12/24/17 18:10 12/25/17 03:10 Fibrinogen 805 mg/dL (200-400) H White Blood Count 6.7 K/UL (4.8-10.8) Red Blood Count 4.00 M/UL (4.20-5.40) L Hemoglobin 10.9 G/DL (12.0-16.0) L Hematocrit 34.2 % (37.0-47.0) L Mean Corpuscular Volume 86 FL (80-99) Mean Corpuscular Hemoglobin 27.2 PG (27.0-31.0) Mean Corpuscular Hemoglobin Concent 31.8 G/DL (32.0-36.0) L Red Cell Distribution Width 13.2 % (11.6-14.8) Platelet Count 268 K/UL (150-450) Mean Platelet Volume 6.7 FL (6.5-10.1) Neutrophils (%) (Auto) % (45.0-75.0) Lymphocytes (%) (Auto) % (20.0-45.0) Monocytes (%) (Auto) % (1.0-10.0) Eosinophils (%) (Auto) % (0.0-3.0) Basophils (%) (Auto) % (0.0-2.0) Erythrocyte Sedimentation Rate 110 MM/HR (0-30) H Reticulocyte Count 0.4 % (0.0-2.0) Prothrombin Time 10.2 SEC (9.30-11.50) Prothromb Time International Ratio 1.0 (0.9-1.1) Activated Partial Thromboplast Time 33 SEC (23-33) Iron Level 24 ug/dL (50-175) L Total Iron Binding Capacity 289 ug/dL (250-450) Percent Iron Saturation 8 % (15-50) L Unsaturated Iron Binding 265 ug/dL (112-346) Lactate Dehydrogenase 195 U/L (81-234) Troponin I 0.000 ng/mL (0.000-0.056) Carcinoembryonic Antigen Pending Vitamin B12 Level 748 PG/ML (193-986) Folate 84.6 NG/ML (8.6-58.9) H Current Medications Medications (Trade) Dose Ordered Sig/Janessa Route PRN Reason Start Time Stop Time Status Last Admin Dose Admin Acetaminophen (Tylenol) 650 mg Q4H PRN ORAL T>100.5 12/24/17 16:45 01/22/18 20:44 Albuterol/ Ipratropium (Albuterol/ Ipratropium) 3 ml Q4H PRN HHN Shortness of Breath 12/24/17 16:45 12/28/17 20:44 12/25/17 05:26 Clonidine HCl (Catapres Tab) 0.1 mg EVERY 8 HOURS ORAL 12/24/17 14:00 01/22/18 21:59 12/25/17 06:12 Heparin Sodium (Porcine) (Heparin 5000 units/ml) 5,000 units EVERY 12 HOURS SUBQ 12/24/17 21:00 01/22/18 22:59 12/25/17 08:24 Levofloxacin 150 ml @ 100 mls/hr Q48H IVPB 12/25/17 21:00 01/01/18 20:59 Methylprednisolone Sodium Succinate (Solu-MEDROL) 60 mg EVERY 12 HOURS IV 12/25/17 21:00 01/23/18 11:59 Olanzapine (ZyPREXA) 5 mg Q6H PRN ORAL agitation 12/24/17 18:45 01/23/18 12:34 12/25/17 06:12 Ondansetron HCl (Zofran) 4 mg Q6H PRN IVP Nausea & Vomiting 12/24/17 14:45 01/22/18 20:44 Polyethylene Glycol (Miralax) 17 gm DAILYPRN PRN ORAL Constipation 12/24/17 20:45 01/22/18 20:44 Promethazine HCl/ Codeine (Phenergan with Codeine) 5 ml Q4H PRN ORAL For Cough 12/24/17 15:00 01/23/18 10:59 Temazepam (Restoril) 15 mg HSPRN PRN ORAL Insomnia 12/24/17 21:00 12/30/17 20:59 Theophylline (Ramesh-Dur) 100 mg EVERY 12 HOURS ORAL 12/24/17 21:00 01/23/18 20:59 12/25/17 08:23 Brayan Washburn MD December 25, 2017 13:24
--- NOTE | 2017-12-25 13:43 | General Progress Note ---
Assessment/Plan Assessment/Plan #. Anemia due to underlying chronic disease --> anemia workup has been reviewed --> hold off on iron #. Neutrophilia. Continue to closely monitor for improvement. #. Azotemia, potentially secondary to dehydration. #. Chronic obstructive pulmonary disease, currently some shortness of breath noted, dyspnea on exertion. #. care home resident. Continue to closely monitor for improvement. #. Hypertension, systolic blood pressure goal less than 140. Subjective Constitutional: Denies: no symptoms, chills, diaphoresis, fever, malaise, weakness, other HEENT: Denies: no symptoms, eye pain, blurred vision, tearing, double vision, ear pain, ear discharge, nose pain, nose congestion, throat pain, throat swelling, mouth pain, mouth swelling, other Cardiovascular: Denies: no symptoms, chest pain, edema, irregular heart rate, lightheadedness, palpitations, syncope, other Respiratory: Denies: no symptoms, cough, orthopnea, shortness of breath, SOB with excertion, SOB at rest, sputum, stridor, wheezing, other Gastrointestinal/Abdominal: Denies: no symptoms, abdomen distended, abdominal pain, black stools, tarry stools, blood in stool, constipated, diarrhea, difficulty swallowing, nausea, poor appetite, poor fluid intake, rectal bleeding , vomiting, other Genitourinary: Denies: no symptoms, burning, discharge, frequency, flank pain, hematuria, incontinence, pain, urgency, other Neurologic/Psychiatric: Denies: no symptoms, anxiety, depressed, emotional problems, headache, numbness, paresthesia, pre-existing deficit, seizure, tingling, tremors, weakness, other Endocrine: Denies: no symptoms, excessive sweating, flushing, intolerance to cold, intolerance to heat, increased hunger, increased thirst, increased urine, unexplained weight gain, unexplained weight loss, other Hematologic/Lymphatic: Denies: no symptoms, anemia, easy bleeding, easy bruising, other Allergies: Coded Allergies: No Known Allergies (Unverified , 07/31/16) Subjective no fevers, no bleeding, no chills Objective Last 24 Hour Vital Signs Date Time Temp Pulse Resp B/P (MAP) Pulse Ox O2 Delivery O2 Flow Rate FiO2 12/25/17 13:26 112/56 12/25/17 12:00 97.2 85 20 112/56 94 Nasal Cannula 3.0 97.2 12/25/17 11:49 83 12/25/17 08:12 Nasal Cannula 3.0 32 12/25/17 08:00 96.6 87 20 143/68 94 Nasal Cannula 3.0 96.6 12/25/17 07:50 91 12/25/17 07:45 95 Nasal Cannula 3.0 32 12/25/17 06:35 85 18 Nasal Cannula 2.0 28 12/25/17 06:12 136/66 12/25/17 05:39 91 20 99 Nasal Cannula 2.0 28 12/25/17 05:25 73 20 95 Nasal Cannula 2.0 28 12/25/17 04:00 98.1 84 19 136/66 95 Nasal Cannula 3.0 98.1 12/25/17 03:37 72 12/25/17 00:00 98.5 77 18 101/59 99 Nasal Cannula 3.0 98.5 12/25/17 00:00 67 12/24/17 23:02 116/59 12/24/17 20:00 98.1 81 19 116/59 98 Nasal Cannula 3.0 98.1 12/24/17 20:00 3.0 12/24/17 19:36 81 18 Nasal Cannula 2.0 28 12/24/17 19:36 96 Nasal Cannula 3.0 32 12/24/17 19:36 Nasal Cannula 3.0 32 12/24/17 19:28 82 12/24/17 16:00 81 12/24/17 16:00 3.0 12/24/17 14:46 96 12/24/17 14:44 141/44 12/24/17 14:00 87 22 134/57 98 Nasal Cannula 3.0 Intake and Output 12/24/17 12/25/17 19:00 07:00 Intake Total 30 ml 20 ml Output Total 300 ml Balance -270 ml 20 ml Intake Oral 30 ml 20 ml Output Urine Total 300 ml # Voids 1 2 Laboratory Tests 12/24/17 18:10: Fibrinogen 805H 12/25/17 03:10: White Blood Count 6.7, Red Blood Count 4.00L, Hemoglobin 10.9L, Hematocrit 34.2L , Mean Corpuscular Volume 86, Mean Corpuscular Hemoglobin 27.2, Mean Corpuscular Hemoglobin Concent 31.8L, Red Cell Distribution Width 13.2, Platelet Count 268, Mean Platelet Volume 6.7, Neutrophils (%) (Auto) , Lymphocytes (%) (Auto) , Monocytes (%) (Auto) , Eosinophils (%) (Auto) , Basophils (%) (Auto) , Erythrocyte Sedimentation Rate 110H, Reticulocyte Count 0.4, Prothrombin Time 10.2, Prothromb Time International Ratio 1.0, Activated Partial Thromboplast Time 33, Iron Level 24L, Total Iron Binding Capacity 289, Percent Iron Saturation 8L, Unsaturated Iron Binding 265, Lactate Dehydrogenase 195, Troponin I 0.000, Carcinoembryonic Antigen [Pending], Vitamin B12 Level 748 , Folate 84.6H Height (Feet): 5 Height (Inches): 3.00 Weight (Pounds): 121 General Appearance: alert EENT: TMs normal Neck: supple Cardiovascular: regular rhythm Respiratory/Chest: lungs clear Abdomen: soft Extremities: non-tender Edema: 1+ Arm (L), 1+ Arm (R), 1+ Leg (L), 1+ Leg (R) Edema: mild edema Neurologic: alert Skin: warm/dry Asa Burrell MD December 25, 2017 13:43
--- NOTE | 2017-12-25 15:19 | General Progress Note ---
Assessment/Plan Status: stable Assessment/Plan dementia with behavioral dist encephalopathy -zyprexa 5mg q6 prn Subjective Date patient seen: December 25, 2017 Neurologic/Psychiatric: Reports: anxiety, depressed, emotional problems Allergies: Coded Allergies: No Known Allergies (Unverified , 07/31/16) Objective Last 24 Hour Vital Signs Date Time Temp Pulse Resp B/P (MAP) Pulse Ox O2 Delivery O2 Flow Rate FiO2 12/25/17 13:26 112/56 12/25/17 12:00 97.2 85 20 112/56 94 Nasal Cannula 3.0 97.2 12/25/17 11:49 83 12/25/17 08:12 Nasal Cannula 3.0 32 12/25/17 08:00 96.6 87 20 143/68 94 Nasal Cannula 3.0 96.6 12/25/17 07:50 91 12/25/17 07:45 95 Nasal Cannula 3.0 32 12/25/17 06:35 85 18 Nasal Cannula 2.0 28 12/25/17 06:12 136/66 12/25/17 05:39 91 20 99 Nasal Cannula 2.0 28 12/25/17 05:25 73 20 95 Nasal Cannula 2.0 28 12/25/17 04:00 98.1 84 19 136/66 95 Nasal Cannula 3.0 98.1 12/25/17 03:37 72 12/25/17 00:00 98.5 77 18 101/59 99 Nasal Cannula 3.0 98.5 12/25/17 00:00 67 12/24/17 23:02 116/59 12/24/17 20:00 98.1 81 19 116/59 98 Nasal Cannula 3.0 98.1 12/24/17 20:00 3.0 12/24/17 19:36 81 18 Nasal Cannula 2.0 28 12/24/17 19:36 96 Nasal Cannula 3.0 32 12/24/17 19:36 Nasal Cannula 3.0 32 12/24/17 19:28 82 12/24/17 16:00 81 12/24/17 16:00 3.0 Intake and Output 12/24/17 12/25/17 19:00 07:00 Intake Total 30 ml 20 ml Output Total 300 ml Balance -270 ml 20 ml Intake Oral 30 ml 20 ml Output Urine Total 300 ml # Voids 1 2 Laboratory Tests 12/24/17 18:10: Fibrinogen 805H 12/25/17 03:10: White Blood Count 6.7, Red Blood Count 4.00L, Hemoglobin 10.9L, Hematocrit 34.2L , Mean Corpuscular Volume 86, Mean Corpuscular Hemoglobin 27.2, Mean Corpuscular Hemoglobin Concent 31.8L, Red Cell Distribution Width 13.2, Platelet Count 268, Mean Platelet Volume 6.7, Neutrophils (%) (Auto) , Lymphocytes (%) (Auto) , Monocytes (%) (Auto) , Eosinophils (%) (Auto) , Basophils (%) (Auto) , Erythrocyte Sedimentation Rate 110H, Reticulocyte Count 0.4, Prothrombin Time 10.2, Prothromb Time International Ratio 1.0, Activated Partial Thromboplast Time 33, Iron Level 24L, Total Iron Binding Capacity 289, Percent Iron Saturation 8L, Unsaturated Iron Binding 265, Lactate Dehydrogenase 195, Troponin I 0.000, Carcinoembryonic Antigen [Pending], Vitamin B12 Level 748 , Folate 84.6H Height (Feet): 5 Height (Inches): 3.00 Weight (Pounds): 121 General Appearance: WD/WN, no apparent distress, alert, confused, agitated Bismark Jung M.D. December 25, 2017 15:19
[2017-12-25] MEDS ORDERED: Albuterol/Ipratropium 3ml neb HHN PRN (15:59)
[2017-12-25] MEDS ORDERED: Miralax 17gm pkt ORAL PRN (16:00)
[2017-12-25] MEDS ORDERED: Promethazine/Codeine 5ml UD ORAL PRN (16:01)
[2017-12-25] MEDS: Iron Sucrose 100 MG in NS 55 ML IV SCH (20:21)
[2017-12-25] MEDS ORDERED: Solu-MEDROL 125mg Inj IV SCH (21:00)
[2017-12-25] MEDS ORDERED: Iron Sucrose 100 MG in NS 55 ML IV SCH (21:00)
[2017-12-26] VITALS (7 sets, daily range): BP systolic 115–153; BP diastolic 45–96
--- NOTE | 2017-12-26 07:08 | Pulmonology Progress Note ---
Assessment/Plan Assessment/Plan ASSESSMENT Acute hypoxemic respiratory failure requiring BiPAP, resolved COPD exacerbation Moderate pulmonary hypertension Hypertension Anemia Dementia with behavioral disturbances Encephalopathy dysphagia high aspiration risk PLAN OF CARE MS ( from ICU to9DOU to [facility]) weaned from BiPAP supplemental oxygen to keep pulse oximetry above 92% pulmonary toilet with HHN and CPT chest x-ray -no acute cardiopulmonary pathology IV steroids and taper , in am change to oral trial of theophylline empiric antibiotic sputum culture if able ID follows BSSE and VSSE results noted, failed, high aspiration risk for [id number] diet as per ST recommendations with strict aspiration precautions troponin 2 negative blood pressure management with clonidine Echocardiogram with grossly preserved ejection fraction and evidence of moderate pulmonary hypertension with right ventricular systolic pressure of 49 monitor H&H , transfuse when necessary with goal to keep hemoglobin above 8 Bowel regimen DVT prophylaxis Psychiatrist follows patient started on Zyprexa consider comfort measures case discussed and evaluated by supervising physician Subjective Allergies: Coded Allergies: No Known Allergies (Unverified , 07/31/16) Subjective afebrile, no leukocytosis No signs of respiratory distress Pulse oximetry stable on oxygen 2 L via nasal cannula no chest pain Objective Last 24 Hour Vital Signs Date Time Temp Pulse Resp B/P (MAP) Pulse Ox O2 Delivery O2 Flow Rate FiO2 12/26/17 05:39 140/65 12/26/17 03:44 97.2 70 18 140/65 92 Nasal Cannula 3.0 97.2 12/26/17 00:01 98.1 72 16 122/68 96 Nasal Cannula 3.0 98.1 12/25/17 21:45 128/54 12/25/17 20:08 Nasal Cannula 3.0 32 12/25/17 20:08 96 Nasal Cannula 3.0 32 12/25/17 20:07 83 20 Nasal Cannula 3.0 32 12/25/17 20:00 98.1 81 16 128/54 92 Nasal Cannula 3.0 98.1 12/25/17 16:32 97.3 83 20 137/78 96 97.3 12/25/17 15:54 92.8 80 20 138/71 95 Nasal Cannula 3.0 92.8 12/25/17 13:26 112/56 12/25/17 12:00 97.2 85 20 112/56 94 Nasal Cannula 3.0 97.2 12/25/17 11:49 83 12/25/17 08:12 Nasal Cannula 3.0 32 12/25/17 08:00 96.6 87 20 143/68 94 Nasal Cannula 3.0 96.6 12/25/17 07:50 91 12/25/17 07:45 95 Nasal Cannula 3.0 32 Intake and Output 12/25/17 12/26/17 19:00 07:00 Intake Total 150 ml 120 ml Balance 150 ml 120 ml Intake Oral 150 ml 60 ml IV Total 60 ml # Voids 2 3 # Bowel Movements 1 General Appearance: no acute distress HEENT: normocephalic, atraumatic, anicteric Respiratory/Chest: no respiratory distress, decreased breath sounds Cardiovascular: normal rate, no JVD Abdomen: normal bowel sounds, soft, non tender Extremities: no edema, pedal pulses normal Neurologic/Psychiatric: alert - confused, responsive Musculoskeletal: atrophy - BLE Microbiology Date/Time Source Procedure Growth Status 12/23/17 18:00 Blood Blood Culture - Preliminary NO GROWTH AFTER 24 HOURS Resulted 12/23/17 17:45 Blood Blood Culture - Preliminary NO GROWTH AFTER 24 HOURS Resulted 12/25/17 06:50 Sputum Gram Stain - Final Resulted 12/25/17 06:50 Sputum Sputum Culture - Preliminary NORMAL UPPER RESPIRATORY JONE AT 24 ... Resulted 12/24/17 11:00 Sputum Gram Stain - Final Complete 12/24/17 11:00 Sputum Sputum Culture - Final NORMAL UPPER RESPIRATORY JONE AT 48 ... Complete 12/23/17 18:20 Urine,Clean Catch Urine Culture - Preliminary Mixed Urogenital Contaminants Resulted 12/23/17 18:45 Rectum VRE Culture - Final NO VANCOMYCIN RESISTANT ENTEROCOCCUS ... Complete Current Medications Medications (Trade) Dose Ordered Sig/Janessa Route PRN Reason Start Time Stop Time Status Last Admin Dose Admin Acetaminophen (Tylenol) 650 mg Q4H PRN ORAL T>100.5 12/25/17 15:59 01/22/18 15:58 Albuterol/ Ipratropium (Albuterol/ Ipratropium) 3 ml Q4H PRN HHN Shortness of Breath 12/25/17 15:59 12/28/17 15:58 Clonidine HCl (Catapres Tab) 0.1 mg EVERY 8 HOURS ORAL 12/25/17 22:00 01/22/18 21:59 12/26/17 05:39 Heparin Sodium (Porcine) (Heparin 5000 units/ml) 5,000 units EVERY 12 HOURS SUBQ 12/25/17 21:00 01/22/18 22:59 12/25/17 20:22 Iron Sucrose 100 mg/Sodium Chloride 60 ml @ 240 mls/hr BEDTIME IV 12/25/17 21:00 12/29/17 21:14 12/25/17 20:21 Levofloxacin 150 ml @ 100 mls/hr Q48H IVPB 12/25/17 21:00 01/01/18 20:59 12/25/17 21:05 Methylprednisolone Sodium Succinate (Solu-MEDROL) 60 mg EVERY 12 HOURS IV 12/25/17 21:00 01/23/18 11:59 12/25/17 20:20 Olanzapine (ZyPREXA) 5 mg Q6H PRN ORAL agitation 12/25/17 15:59 01/23/18 15:58 Ondansetron HCl (Zofran) 4 mg Q6H PRN IVP Nausea & Vomiting 12/25/17 15:59 01/22/18 15:58 Polyethylene Glycol (Miralax) 17 gm DAILYPRN PRN ORAL Constipation 12/25/17 16:00 01/22/18 15:59 Promethazine HCl/ Codeine (Phenergan with Codeine) 5 ml Q4H PRN ORAL For Cough 12/25/17 16:01 01/23/18 16:00 Temazepam (Restoril) 15 mg HSPRN PRN ORAL Insomnia 12/25/17 21:00 12/30/17 20:59 Theophylline (Ramesh-Dur) 100 mg EVERY 12 HOURS ORAL 12/25/17 21:00 01/23/18 20:59 12/25/17 20:20 Rosa Maria Patel INS[employer]ANCE CO[employer]INATOR December 26, 2017 07:08
[2017-12-26] MEDS: Theophylline ER 100mg ORAL SCH ×2 (08:22→20:26)
[2017-12-26] MEDS: Solu-MEDROL 125mg Inj IV SCH (08:22)
[2017-12-26] MEDS: Heparin 5000 units/ml inj SUBQ SCH ×2 (08:30→20:28)
--- NOTE | 2017-12-26 11:37 | Infectious Diseases Prog Note ---
Assessment/Plan Assessment/Plan ASSESSMENT: The patient is an 87-year-old female with Bronchitis/COPD exacerbation SCx : nl christopher, 12/25 SCx: P Chest x-ray: bronchitis. No acute infiltrate Afebrile. Abnormal white blood cells. ALT, AST, and alkaline phosphatase: unremarkable. Urine culture: mixed growth CAD/CHF Hypertension GERD. Diabetes Anemia PLAN: continue the patient on Levaquin day # 4 / 5 Monitor CBC. Monitor BMP. Monitor culture ( Bl, Sp ) Chest x-ray. Continue respiratory support Subjective Allergies: Coded Allergies: No Known Allergies (Unverified , 07/31/16) Subjective afebrile Objective Vital Signs Last 24 Hour Vital Signs Date Time Temp Pulse Resp B/P (MAP) Pulse Ox O2 Delivery O2 Flow Rate FiO2 12/26/17 08:00 97.5 88 18 115/63 94 Nasal Cannula 2.0 97.5 12/26/17 07:50 75 18 Nasal Cannula 3.0 32 12/26/17 07:50 96 Nasal Cannula 3.0 32 12/26/17 07:50 Nasal Cannula 3.0 32 12/26/17 05:39 140/65 12/26/17 03:44 97.2 70 18 140/65 92 Nasal Cannula 3.0 97.2 12/26/17 00:01 98.1 72 16 122/68 96 Nasal Cannula 3.0 98.1 12/25/17 21:45 128/54 12/25/17 20:08 Nasal Cannula 3.0 32 12/25/17 20:08 96 Nasal Cannula 3.0 32 12/25/17 20:07 83 20 Nasal Cannula 3.0 32 12/25/17 20:00 98.1 81 16 128/54 92 Nasal Cannula 3.0 98.1 12/25/17 16:32 97.3 83 20 137/78 96 97.3 12/25/17 15:54 92.8 80 20 138/71 95 Nasal Cannula 3.0 92.8 12/25/17 13:26 112/56 12/25/17 12:00 97.2 85 20 112/56 94 Nasal Cannula 3.0 97.2 12/25/17 11:49 83 Height (Feet): 5 Height (Inches): 3.00 Weight (Pounds): 120 HEENT: anicteric Respiratory/Chest: normal breath sounds Cardiovascular: regular rhythm Abdomen: soft, non tender Microbiology Date/Time Source Procedure Growth Status 12/23/17 18:00 Blood Blood Culture - Preliminary NO GROWTH AFTER 48 HOURS Resulted 12/23/17 17:45 Blood Blood Culture - Preliminary NO GROWTH AFTER 48 HOURS Resulted 12/25/17 06:50 Sputum Gram Stain - Final Resulted 12/25/17 06:50 Sputum Sputum Culture - Preliminary NORMAL UPPER RESPIRATORY CHRISTOPHER AT 24 ... Resulted 12/24/17 11:00 Sputum Gram Stain - Final Complete 12/24/17 11:00 Sputum Sputum Culture - Final NORMAL UPPER RESPIRATORY CHRISTOPHER AT 48 ... Complete 12/23/17 18:45 Nasal Nares MRSA Culture - Final NO METHICILLIN RESISTANT STAPH AUREUS... Complete 12/23/17 18:20 Urine,Clean Catch Urine Culture - Final Mixed Urogenital Contaminants Complete 12/23/17 18:45 Rectum VRE Culture - Final NO VANCOMYCIN RESISTANT ENTEROCOCCUS ... Complete Current Medications Medications (Trade) Dose Ordered Sig/Janessa Route PRN Reason Start Time Stop Time Status Last Admin Dose Admin Acetaminophen (Tylenol) 650 mg Q4H PRN ORAL T>100.5 12/25/17 15:59 01/22/18 15:58 Albuterol/ Ipratropium (Albuterol/ Ipratropium) 3 ml Q4H PRN HHN Shortness of Breath 12/25/17 15:59 12/28/17 15:58 Clonidine HCl (Catapres Tab) 0.1 mg EVERY 8 HOURS ORAL 12/25/17 22:00 01/22/18 21:59 12/26/17 05:39 Heparin Sodium (Porcine) (Heparin 5000 units/ml) 5,000 units EVERY 12 HOURS SUBQ 12/25/17 21:00 01/22/18 22:59 12/26/17 08:30 Iron Sucrose 100 mg/Sodium Chloride 60 ml @ 240 mls/hr BEDTIME IV 12/25/17 21:00 12/29/17 21:14 12/25/17 20:21 Levofloxacin 150 ml @ 100 mls/hr Q48H IVPB 12/25/17 21:00 01/01/18 20:59 12/25/17 21:05 Methylprednisolone Sodium Succinate (Solu-MEDROL) 60 mg EVERY 12 HOURS IV 12/25/17 21:00 01/23/18 11:59 12/26/17 08:22 Olanzapine (ZyPREXA) 5 mg Q6H PRN ORAL agitation 12/25/17 15:59 01/23/18 15:58 Ondansetron HCl (Zofran) 4 mg Q6H PRN IVP Nausea & Vomiting 12/25/17 15:59 01/22/18 15:58 Polyethylene Glycol (Miralax) 17 gm DAILYPRN PRN ORAL Constipation 12/25/17 16:00 01/22/18 15:59 Promethazine HCl/ Codeine (Phenergan with Codeine) 5 ml Q4H PRN ORAL For Cough 12/25/17 16:01 01/23/18 16:00 Temazepam (Restoril) 15 mg HSPRN PRN ORAL Insomnia 12/25/17 21:00 12/30/17 20:59 Theophylline (Ramesh-Dur) 100 mg EVERY 12 HOURS ORAL 12/25/17 21:00 01/23/18 20:59 12/26/17 08:22 Brayan Washburn MD December 26, 2017 11:37
--- NOTE | 2017-12-26 16:33 | General Progress Note ---
Assessment/Plan Assessment/Plan #. Anemia due to underlying chronic disease --> anemia workup has been reviewed, indices of iron are elevated --> hold off on iron, would be of minimal/equivocal benefit #. Neutrophilia. Continue to closely monitor for improvement. --> now better #. Azotemia, potentially secondary to dehydration. #. Chronic obstructive pulmonary disease, currently some shortness of breath noted, dyspnea on exertion. #. [facility] resident. d/c back once ready #. Hypertension, systolic blood pressure goal less than 140. Subjective Constitutional: Denies: no symptoms, chills, diaphoresis, fever, malaise, weakness, other HEENT: Denies: no symptoms, eye pain, blurred vision, tearing, double vision, ear pain, ear discharge, nose pain, nose congestion, throat pain, throat swelling, mouth pain, mouth swelling, other Cardiovascular: Denies: no symptoms, chest pain, edema, irregular heart rate, lightheadedness, palpitations, syncope, other Respiratory: Denies: no symptoms, cough, orthopnea, shortness of breath, SOB with excertion, SOB at rest, sputum, stridor, wheezing, other Gastrointestinal/Abdominal: Denies: no symptoms, abdomen distended, abdominal pain, black stools, tarry stools, blood in stool, constipated, diarrhea, difficulty swallowing, nausea, poor appetite, poor fluid intake, rectal bleeding , vomiting, other Genitourinary: Denies: no symptoms, burning, discharge, frequency, flank pain, hematuria, incontinence, pain, urgency, other Neurologic/Psychiatric: Denies: no symptoms, anxiety, depressed, emotional problems, headache, numbness, paresthesia, pre-existing deficit, seizure, tingling, tremors, weakness, other Endocrine: Denies: no symptoms, excessive sweating, flushing, intolerance to cold, intolerance to heat, increased hunger, increased thirst, increased urine, unexplained weight gain, unexplained weight loss, other Hematologic/Lymphatic: Denies: no symptoms, anemia, easy bleeding, easy bruising, other Allergies: Coded Allergies: No Known Allergies (Unverified , 07/31/16) Subjective no fevers, no bleeding, no chills Objective Last 24 Hour Vital Signs Date Time Temp Pulse Resp B/P (MAP) Pulse Ox O2 Delivery O2 Flow Rate FiO2 5/19/18 15:59 96.4 81 18 134/96 91 Nasal Cannula 2.0 96.4 12/26/17 14:00 132/65 12/26/17 12:00 97.2 80 18 132/65 92 Nasal Cannula 2.0 97.2 12/26/17 08:00 97.5 88 18 115/63 94 Nasal Cannula 2.0 97.5 12/26/17 07:50 75 18 Nasal Cannula 3.0 32 12/26/17 07:50 96 Nasal Cannula 3.0 32 12/26/17 07:50 Nasal Cannula 3.0 32 12/26/17 05:39 140/65 12/26/17 03:44 97.2 70 18 140/65 92 Nasal Cannula 3.0 97.2 12/26/17 00:01 98.1 72 16 122/68 96 Nasal Cannula 3.0 98.1 12/25/17 21:45 128/54 12/25/17 20:08 Nasal Cannula 3.0 32 12/25/17 20:08 96 Nasal Cannula 3.0 32 12/25/17 20:07 83 20 Nasal Cannula 3.0 32 12/25/17 20:00 98.1 81 16 128/54 92 Nasal Cannula 3.0 98.1 Intake and Output 12/25/17 12/26/17 19:00 07:00 Intake Total 150 ml 120 ml Balance 150 ml 120 ml Intake Oral 150 ml 60 ml IV Total 60 ml # Voids 2 3 # Bowel Movements 1 Height (Feet): 5 Height (Inches): 3.00 Weight (Pounds): 120 General Appearance: no apparent distress EENT: normal ENT inspection Neck: normal alignment Cardiovascular: regular rhythm Respiratory/Chest: lungs clear Abdomen: non tender Extremities: non-tender Edema: 1+ Leg (L), 1+ Leg (R) Neurologic: no motor/sensory deficits Skin: warm/dry Asa Burrell MD December 26, 2017 16:33
--- NOTE | 2017-12-26 18:59 | Cardiology Progress Note ---
Subjective Subjective [id number] Objective Last 24 Hour Vital Signs Date Time Temp Pulse Resp B/P (MAP) Pulse Ox O2 Delivery O2 Flow Rate FiO2 12/26/17 15:59 96.4 81 18 134/96 91 Nasal Cannula 2.0 96.4 12/26/17 14:00 132/65 12/26/17 12:00 97.2 80 18 132/65 92 Nasal Cannula 2.0 97.2 12/26/17 08:00 97.5 88 18 115/63 94 Nasal Cannula 2.0 97.5 12/26/17 07:50 75 18 Nasal Cannula 3.0 32 12/26/17 07:50 96 Nasal Cannula 3.0 32 12/26/17 07:50 Nasal Cannula 3.0 32 12/26/17 05:39 140/65 12/26/17 03:44 97.2 70 18 140/65 92 Nasal Cannula 3.0 97.2 12/26/17 00:01 98.1 72 16 122/68 96 Nasal Cannula 3.0 98.1 12/25/17 21:45 128/54 12/25/17 20:08 Nasal Cannula 3.0 32 12/25/17 20:08 96 Nasal Cannula 3.0 32 12/25/17 20:07 83 20 Nasal Cannula 3.0 32 12/25/17 20:00 98.1 81 16 128/54 92 Nasal Cannula 3.0 98.1 Intake and Output 12/25/17 12/26/17 19:00 07:00 Intake Total 150 ml 120 ml Balance 150 ml 120 ml Intake Oral 150 ml 60 ml IV Total 60 ml # Voids 2 3 # Bowel Movements 1 Microbiology Date/Time Source Procedure Growth Status 12/25/17 06:50 Sputum Gram Stain - Final Resulted 12/25/17 06:50 Sputum Sputum Culture - Preliminary NORMAL UPPER RESPIRATORY JONE AT 24 ... Resulted 12/24/17 11:00 Sputum Gram Stain - Final Complete 12/24/17 11:00 Sputum Sputum Culture - Final NORMAL UPPER RESPIRATORY JONE AT 48 ... Complete Maddy Royal MD December 26, 2017 18:59
[2017-12-26] MEDS: Iron Sucrose 100 MG in NS 55 ML IV SCH (20:26)
--- NOTE | 2017-12-26 21:01 | Consultation ---
DATE OF CONSULTATION: 12/26/2017 CARDIOLOGY CONSULTATION This consult is done as a coverage for Dr. Ihsan Mckay. REFERRING PHYSICIAN: Maureen Perkins M.D. IDENTIFICATION DATA: The patient is an 87-year-old female. The patient was admitted. She was sent from longterm to the emergency department at [facility] on 12/23/2017. She was in severe respiratory distress based on the records and from emergency department. She was admitted with shortness of breath, cough, and wheezing. The patient was agitated and she is demented, so she is unable to give any report. She required BiPAP. She had a lot of wheezing and crackles and she was tachypneic and so she was admitted to initially intensive care unit, but when she was treated and gradually weaned off BiPAP and placed on oxygen. PAST MEDICAL HISTORY: Unfortunately it is very limited due to her inability to give any history. She has history of anemia, hypertension, dementia, and vitamin D deficiency. MEDICATIONS: Medications prior to admission include following. She was on vitamin C, acetaminophen, atorvastatin, Bisacodyl, clonidine, Colace, famotidine, folic acid, furosemide, hydralazine, hydromorphone, inhalers, multivitamin, and tramadol. Currently, she is on following medications. She is on iron and levofloxacin IV. She is on subcutaneous heparin, methylprednisone, Zyprexa, MiraLAX, cough medicine, and temazepam. At the present time, the patient is transferred to medical/surgical bed. When I evaluated her, she was there. ALLERGIES: Not documented. PHYSICAL EXAMINATION: GENERAL: This is an elderly female. She is totally confused, noncommunicative, and not following any commands. She is sitting in bed. She is in mild respiratory distress. VITAL SIGNS: Her blood pressure was 130/60, her heart rate was 80, and her oxygen saturation on 2 liters was 92%. She was afebrile. HEENT: PERRLA. EOMI. Neck veins were not elevated. LUNGS: She has scattered wheezing bilaterally posteriorly, but the air movement was good. Anteriorly, she had some rhonchi. HEART: Regular. Slightly distant. PMI with palpable in the sixth intercostal space in midclavicular line. BREASTS: No significant masses. ABDOMEN: Soft and nontender. Bowel sounds are present. EXTREMITIES: Lower extremities, no edema. NEUROLOGIC: She seemed to be symmetrical. She did not follow many commands, but did not appear that she has lateralized neurologic deficit. DIAGNOSTIC DATA: Her EKG was remarkable for sinus tachycardia. Her echocardiogram evaluated appears to be with normal left ventricular and right ventricular function. Her chest x-ray did not show any evidence of heart failure. LABORATORY DATA: Her lab data were reviewed. Her white count was normal. She was anemic. Sedimentation rate was 110. Hemoglobin was 10. Her renal function was unremarkable. Troponin was normal. IMPRESSION AND RECOMMENDATION: Based on the available information, which is incomplete due to the patient's inability to give a history, she is not in heart failure and most likely her condition was due to chronic obstructive pulmonary disease exacerbation. Aspiration is not excluded. From cardiac standpoint, I do not have any additional recommendations. Thank you very much for your consult. Maddy Royal M.D. DR: HOWIE JOB#: [id number] CC:
--- NOTE | 2017-12-26 22:56 | General Progress Note ---
Assessment/Plan Status: stable Assessment/Plan dementia with behavioral dist encephalopathy -zyprexa 5mg q6 prn Subjective Date patient seen: December 26, 2017 Neurologic/Psychiatric: Reports: anxiety, depressed, emotional problems Allergies: Coded Allergies: No Known Allergies (Unverified , 07/31/16) Objective Last 24 Hour Vital Signs Date Time Temp Pulse Resp B/P (MAP) Pulse Ox O2 Delivery O2 Flow Rate FiO2 12/26/17 22:23 149/68 12/26/17 20:00 93 Nasal Cannula 2.0 28 12/26/17 20:00 Nasal Cannula 2.0 28 12/26/17 20:00 83 20 Nasal Cannula 2.0 28 12/26/17 19:22 97.7 83 20 153/80 93 Nasal Cannula 97.7 12/26/17 15:59 96.4 81 18 134/96 91 Nasal Cannula 2.0 96.4 12/26/17 14:00 132/65 12/26/17 12:00 97.2 80 18 132/65 92 Nasal Cannula 2.0 97.2 12/26/17 08:00 97.5 88 18 115/63 94 Nasal Cannula 2.0 97.5 12/26/17 07:50 75 18 Nasal Cannula 3.0 32 12/26/17 07:50 96 Nasal Cannula 3.0 32 12/26/17 07:50 Nasal Cannula 3.0 32 12/26/17 05:39 140/65 12/26/17 03:44 97.2 70 18 140/65 92 Nasal Cannula 3.0 97.2 12/26/17 00:01 98.1 72 16 122/68 96 Nasal Cannula 3.0 98.1 Intake and Output 12/25/17 12/26/17 19:00 07:00 Intake Total 150 ml 120 ml Balance 150 ml 120 ml Intake Oral 150 ml 60 ml IV Total 60 ml # Voids 2 3 # Bowel Movements 1 Height (Feet): 5 Height (Inches): 3.00 Weight (Pounds): 120 General Appearance: WD/WN, no apparent distress, alert, confused Bismark Jung M.D. December 26, 2017 22:56
[2017-12-27 04:01] VITALS: BP 144/61
[2017-12-27 08:00] VITALS: BP 133/64
[2017-12-27] MEDS: Theophylline ER 100mg ORAL SCH ×2 (08:12→20:52)
[2017-12-27] MEDS: Heparin 5000 units/ml inj SUBQ SCH ×2 (08:17→20:54)
[2017-12-27] MEDS ORDERED: Solu-MEDROL 125mg Inj IV SCH (09:00)
[2017-12-27] MEDS ORDERED: Tubing IV Secondary IV ONE (09:54)
--- NOTE | 2017-12-27 10:58 | Pulmonology Progress Note ---
Assessment/Plan Assessment/Plan ASSESSMENT Acute hypoxemic respiratory failure requiring BiPAP, resolved COPD exacerbation Moderate pulmonary hypertension Hypertension Anemia Dementia with behavioral disturbances Encephalopathy dysphagia high aspiration risk PLAN OF CARE MS ( from ICU to9DOU to [facility]) weaned from BiPAP supplemental oxygen to keep pulse oximetry above 92% pulmonary toilet with HHN and CPT chest x-ray -no acute cardiopulmonary pathology dc IV steroids this am and change to oral with tapering trial of theophylline empiric antibiotic sputum culture if able ID follows BSSE and VSSE results noted, failed, high aspiration risk for desokkc-cw-pmcm diet as per ST recommendations with strict aspiration precautions troponin 2 negative blood pressure management with clonidine Echocardiogram with grossly preserved ejection fraction and evidence of moderate pulmonary hypertension with right ventricular systolic pressure of 49 monitor H&H , transfuse when necessary with goal to keep hemoglobin above 8, on Venofer, check stool OB Bowel regimen DVT prophylaxis Psychiatrist follows patient started on Zyprexa consider comfort measures dc plan case discussed and evaluated by supervising physician Subjective Allergies: Coded Allergies: No Known Allergies (Unverified , 07/31/16) Subjective afebrile, no leukocytosis No signs of respiratory distress Pulse oximetry stable on oxygen 2 L via nasal cannula no chest pain Objective Last 24 Hour Vital Signs Date Time Temp Pulse Resp B/P (MAP) Pulse Ox O2 Delivery O2 Flow Rate FiO2 12/27/17 08:00 96.4 69 20 133/64 92 Nasal Cannula 2.0 96.4 12/27/17 07:18 95 Nasal Cannula 2.0 28 12/27/17 07:18 68 20 Nasal Cannula 2.0 28 12/27/17 07:18 Nasal Cannula 2.0 28 12/27/17 05:54 153/74 12/27/17 04:01 96.4 56 20 144/61 97 Room Air 96.4 12/26/17 23:48 96.0 56 20 130/45 97 Room Air 96.0 12/26/17 22:23 149/68 12/26/17 20:00 93 Nasal Cannula 2.0 28 12/26/17 20:00 Nasal Cannula 2.0 28 12/26/17 20:00 83 20 Nasal Cannula 2.0 28 12/26/17 19:22 97.7 83 20 153/80 93 Nasal Cannula 97.7 12/26/17 15:59 96.4 81 18 134/96 91 Nasal Cannula 2.0 96.4 12/26/17 14:00 132/65 12/26/17 12:00 97.2 80 18 132/65 92 Nasal Cannula 2.0 97.2 Intake and Output 12/26/17 12/27/17 19:00 07:00 Intake Total 840 ml 60 ml Balance 840 ml 60 ml Intake Oral 840 ml IV Total 60 ml # Voids 4 2 Objective General Appearance: no acute distress HEENT: normocephalic, atraumatic, anicteric Respiratory/Chest: no respiratory distress, decreased breath sounds Cardiovascular: normal rate, no JVD Abdomen: normal bowel sounds, soft, non tender Extremities: no edema, pedal pulses normal Neurologic/Psychiatric: alert - confused, responsive Musculoskeletal: atrophy - BLE Microbiology Date/Time Source Procedure Growth Status 12/25/17 06:50 Sputum Gram Stain - Final Complete 12/25/17 06:50 Sputum Sputum Culture - Final NORMAL UPPER RESPIRATORY JONE PRESENT Complete 12/24/17 11:00 Sputum Gram Stain - Final Complete 12/24/17 11:00 Sputum Sputum Culture - Final NORMAL UPPER RESPIRATORY JONE AT 48 ... Complete Current Medications Medications (Trade) Dose Ordered Sig/Janessa Route PRN Reason Start Time Stop Time Status Last Admin Dose Admin Acetaminophen (Tylenol) 650 mg Q4H PRN ORAL T>100.5 12/25/17 15:59 01/22/18 15:58 Albuterol/ Ipratropium (Albuterol/ Ipratropium) 3 ml Q4H PRN HHN Shortness of Breath 12/25/17 15:59 12/28/17 15:58 Clonidine HCl (Catapres Tab) 0.1 mg EVERY 8 HOURS ORAL 12/25/17 22:00 01/22/18 21:59 12/27/17 05:54 Heparin Sodium (Porcine) (Heparin 5000 units/ml) 5,000 units EVERY 12 HOURS SUBQ 12/25/17 21:00 01/22/18 22:59 12/27/17 08:17 Iron Sucrose 100 mg/Sodium Chloride 60 ml @ 240 mls/hr BEDTIME IV 12/25/17 21:00 12/29/17 21:14 12/26/17 20:26 Levofloxacin 150 ml @ 100 mls/hr Q48H IVPB 12/25/17 21:00 01/01/18 20:59 12/25/17 21:05 Methylprednisolone Sodium Succinate (Solu-MEDROL) 60 mg DAILY IV 12/27/17 09:00 01/23/18 11:59 12/27/17 08:13 Olanzapine (ZyPREXA) 5 mg Q6H PRN ORAL agitation 12/25/17 15:59 01/23/18 15:58 12/27/17 08:12 Ondansetron HCl (Zofran) 4 mg Q6H PRN IVP Nausea & Vomiting 12/25/17 15:59 01/22/18 15:58 Polyethylene Glycol (Miralax) 17 gm DAILYPRN PRN ORAL Constipation 12/25/17 16:00 01/22/18 15:59 Promethazine HCl/ Codeine (Phenergan with Codeine) 5 ml Q4H PRN ORAL For Cough 12/25/17 16:01 01/23/18 16:00 Temazepam (Restoril) 15 mg HSPRN PRN ORAL Insomnia 12/25/17 21:00 12/30/17 20:59 12/26/17 22:33 Theophylline (Ramesh-Dur) 100 mg EVERY 12 HOURS ORAL 12/25/17 21:00 01/23/18 20:59 12/27/17 08:12 Rosa Maria Patel [employer] December 27, 2017 10:58
[2017-12-27] MEDS ORDERED: Albuterol/Ipratropium 3ml neb HHN PRN (11:59)
[2017-12-27 12:00] VITALS: BP 149/92
[2017-12-27 16:00] VITALS: BP 127/53
--- NOTE | 2017-12-27 18:42 | General Progress Note ---
Assessment/Plan Status: stable Assessment/Plan #. Anemia due to underlying chronic disease --> anemia workup has been reviewed, indices of iron are elevated --> hold off on iron, would be of minimal/equivocal benefit #. Neutrophilia. Continue to closely monitor for improvement. --> now better #. Azotemia, potentially secondary to dehydration. #. Chronic obstructive pulmonary disease, currently some shortness of breath noted, dyspnea on exertion. #. group home resident. d/c back once ready #. Hypertension, systolic blood pressure goal less than 140. Subjective Date patient seen: December 27, 2017 Allergies: Coded Allergies: No Known Allergies (Unverified , 07/31/16) All Systems: reviewed and negative except above Subjective Patient seen resting in bed. No fevers, no bleeding, no chills Objective Last 24 Hour Vital Signs Date Time Temp Pulse Resp B/P (MAP) Pulse Ox O2 Delivery O2 Flow Rate FiO2 12/27/17 16:00 97.9 67 18 127/53 94 Nasal Cannula 2.0 97.9 12/27/17 14:47 149/92 12/27/17 12:00 97.0 59 18 149/92 98 Nasal Cannula 2.0 97.0 12/27/17 08:00 96.4 69 20 133/64 92 Nasal Cannula 2.0 96.4 12/27/17 07:18 95 Nasal Cannula 2.0 28 12/27/17 07:18 68 20 Nasal Cannula 2.0 28 12/27/17 07:18 Nasal Cannula 2.0 28 12/27/17 05:54 153/74 12/27/17 04:01 96.4 56 20 144/61 97 Room Air 96.4 12/26/17 23:48 96.0 56 20 130/45 97 Room Air 96.0 12/26/17 22:23 149/68 12/26/17 20:00 93 Nasal Cannula 2.0 28 12/26/17 20:00 Nasal Cannula 2.0 28 12/26/17 20:00 83 20 Nasal Cannula 2.0 28 12/26/17 19:22 97.7 83 20 153/80 93 Nasal Cannula 97.7 Intake and Output 12/26/17 12/27/17 19:00 07:00 Intake Total 840 ml 60 ml Balance 840 ml 60 ml Intake Oral 840 ml IV Total 60 ml # Voids 4 2 Height (Feet): 5 Height (Inches): 3.00 Weight (Pounds): 120 General Appearance: no apparent distress EENT: normal ENT inspection Neck: supple Cardiovascular: normal rate Respiratory/Chest: lungs clear Asa Burrell MD December 27, 2017 18:42
[2017-12-27 19:21] VITALS: BP 171/63
[2017-12-27] MEDS: Iron Sucrose 100 MG in NS 55 ML IV SCH (20:52)
--- NOTE | 2017-12-27 22:56 | Cardiology Progress Note ---
Assessment/Plan Assessment/Plan dyspnea, most likely due to COPD exacerbation, stable from cardiac standpoint Subjective Subjective The patient is sitting up in her bed, she is confused and does not udnerstand questions in [place] or in [place]vian, she is not communicated, compeltely confused Objective Last 24 Hour Vital Signs Date Time Temp Pulse Resp B/P (MAP) Pulse Ox O2 Delivery O2 Flow Rate FiO2 12/27/17 21:25 171/63 12/27/17 21:02 Nasal Cannula 2.0 28 12/27/17 21:02 96 Nasal Cannula 2.0 28 12/27/17 21:02 66 20 Nasal Cannula 2.0 28 12/27/17 19:21 97.2 73 20 171/63 91 Room Air 97.2 12/27/17 16:00 97.9 67 18 127/53 94 Nasal Cannula 2.0 97.9 12/27/17 14:47 149/92 12/27/17 12:00 97.0 59 18 149/92 98 Nasal Cannula 2.0 97.0 12/27/17 08:00 96.4 69 20 133/64 92 Nasal Cannula 2.0 96.4 12/27/17 07:18 95 Nasal Cannula 2.0 28 12/27/17 07:18 68 20 Nasal Cannula 2.0 28 12/27/17 07:18 Nasal Cannula 2.0 28 12/27/17 05:54 153/74 12/27/17 04:01 96.4 56 20 144/61 97 Room Air 96.4 12/26/17 23:48 96.0 56 20 130/45 97 Room Air 96.0 General Appearance: mild distress EENT: PERRL/EOMI Neck: no JVD Rhythm: NSR Cardiovascular: normal rate Respiratory/Chest: expiratory wheezing Abdomen: no organomegaly Extremities: trace edema Intake and Output 12/26/17 12/27/17 19:00 07:00 Intake Total 840 ml 60 ml Balance 840 ml 60 ml Intake Oral 840 ml IV Total 60 ml # Voids 4 2 Microbiology Date/Time Source Procedure Growth Status 12/25/17 06:50 Sputum Gram Stain - Final Complete 12/25/17 06:50 Sputum Sputum Culture - Final NORMAL UPPER RESPIRATORY JONE PRESENT Complete Maddy Royal MD December 27, 2017 22:56
[2017-12-27 23:46] VITALS: BP 154/85
[2017-12-28 04:00] VITALS: BP 150/68
[2017-12-28 08:00] VITALS: BP 138/61
[2017-12-28] MEDS: Theophylline ER 100mg ORAL SCH (08:29)
[2017-12-28] MEDS: Heparin 5000 units/ml inj SUBQ SCH (08:30)
[2017-12-28 08:33] LABS: BASOPHILS % (AUTO) 0.9 % (0.0-2.0); HEMATOCRIT 31.9 % (37.0-47.0); HEMOGLOBIN 10.5 G/DL (12.0-16.0); LYMPHOCYTES % (AUTO) 16.6 % (20.0-45.0); MEAN CORPUSCULAR VOLUME 86 FL (80-99); MONOCYTES % (AUTO) 8.8 % (1.0-10.0); NEUTROPHILS % (AUTO) 73.6 % (45.0-75.0); PLATELET COUNT 286 K/UL (150-450); RED BLOOD COUNT 3.71 M/UL (4.20-5.40); WHITE BLOOD COUNT 9.7 K/UL (4.8-10.8)
[2017-12-28 08:46] LABS: ANION GAP 9 mmol/L (5-15); BLOOD UREA NITROGEN 38 mg/dL (7-18); CALCIUM 9.5 MG/DL (8.5-10.1); CARBON DIOXIDE 32 MMOL/L (21-32); CHLORIDE 102 MMOL/L (98-107); CREATININE 1.1 MG/DL (0.55-1.30); POTASSIUM 3.7 MMOL/L (3.5-5.1); SODIUM 143 MMOL/L (136-145)
[2017-12-28 12:00] VITALS: BP 129/51
--- NOTE | 2017-12-28 12:18 | Infectious Diseases Prog Note ---
Assessment/Plan Assessment/Plan ASSESSMENT: The patient is an 87-year-old female with Bronchitis/COPD exacerbation SCx : nl christopher, 12/25 SCx: normal christopher Chest x-ray: bronchitis. No acute infiltrate Afebrile. Abnormal white blood cells. ALT, AST, and alkaline phosphatase: unremarkable. Urine culture: mixed growth CAD/CHF Hypertension GERD. Diabetes Anemia PLAN: continue to monitor off abx -12/27 SP Levaquin day # 5 Monitor CBC. Monitor BMP. Monitor culture ( Bl) Chest x-ray. Continue respiratory support Subjective Allergies: Coded Allergies: No Known Allergies (Unverified , 07/31/16) Subjective afebrile no leukocytosis off abx now Objective Vital Signs Last 24 Hour Vital Signs Date Time Temp Pulse Resp B/P (MAP) Pulse Ox O2 Delivery O2 Flow Rate FiO2 12/28/17 08:00 95.9 54 20 138/61 95 95.9 12/28/17 05:48 150/68 12/28/17 04:00 97.0 62 19 150/68 90 97.0 12/28/17 03:13 88 20 98 Nasal Cannula 2.0 28 12/28/17 03:01 63 18 97 Nasal Cannula 2.0 28 12/27/17 23:46 96.8 68 20 154/85 92 Nasal Cannula 96.8 12/27/17 21:25 171/63 12/27/17 21:02 Nasal Cannula 2.0 28 12/27/17 21:02 96 Nasal Cannula 2.0 28 12/27/17 21:02 66 20 Nasal Cannula 2.0 28 12/27/17 19:21 97.2 73 20 171/63 91 Room Air 97.2 12/27/17 16:00 97.9 67 18 127/53 94 Nasal Cannula 2.0 97.9 12/27/17 14:47 149/92 Height (Feet): 5 Height (Inches): 3.00 Weight (Pounds): 120 Objective General Appearance: no acute distress HEENT: normocephalic, atraumatic, anicteric Respiratory/Chest: no respiratory distress, decreased breath sounds Cardiovascular: normal rate, no JVD Abdomen: normal bowel sounds, soft, non tender Extremities: no edema, pedal pulses normal Neurologic/Psychiatric: alert - confused, responsive Musculoskeletal: atrophy - BLE Laboratory Tests Test 12/28/17 05:05 White Blood Count 9.7 K/UL (4.8-10.8) Red Blood Count 3.71 M/UL (4.20-5.40) L Hemoglobin 10.5 G/DL (12.0-16.0) L Hematocrit 31.9 % (37.0-47.0) L Mean Corpuscular Volume 86 FL (80-99) Mean Corpuscular Hemoglobin 28.3 PG (27.0-31.0) Mean Corpuscular Hemoglobin Concent 33.0 G/DL (32.0-36.0) Red Cell Distribution Width 13.0 % (11.6-14.8) Platelet Count 286 K/UL (150-450) Mean Platelet Volume 5.5 FL (6.5-10.1) L Neutrophils (%) (Auto) 73.6 % (45.0-75.0) Lymphocytes (%) (Auto) 16.6 % (20.0-45.0) L Monocytes (%) (Auto) 8.8 % (1.0-10.0) Eosinophils (%) (Auto) 0.0 % (0.0-3.0) Basophils (%) (Auto) 0.9 % (0.0-2.0) Sodium Level 143 MMOL/L (136-145) Potassium Level 3.7 MMOL/L (3.5-5.1) Chloride Level 102 MMOL/L (98-107) Carbon Dioxide Level 32 MMOL/L (21-32) Anion Gap 9 mmol/L (5-15) Blood Urea Nitrogen 38 mg/dL (7-18) H Creatinine 1.1 MG/DL (0.55-1.30) Estimat Glomerular Filtration Rate mL/min (>60) Glucose Level 101 MG/DL (74-106) Calcium Level 9.5 MG/DL (8.5-10.1) Current Medications Medications (Trade) Dose Ordered Sig/Janessa Route PRN Reason Start Time Stop Time Status Last Admin Dose Admin Acetaminophen (Tylenol) 650 mg Q4H PRN ORAL T>100.5 12/25/17 15:59 01/22/18 15:58 Albuterol/ Ipratropium (Albuterol/ Ipratropium) 3 ml Q4H PRN HHN Shortness of Breath 12/27/17 11:59 12/30/17 11:58 12/28/17 03:00 Clonidine HCl (Catapres Tab) 0.1 mg EVERY 8 HOURS ORAL 12/25/17 22:00 01/22/18 21:59 12/28/17 05:48 Heparin Sodium (Porcine) (Heparin 5000 units/ml) 5,000 units EVERY 12 HOURS SUBQ 12/25/17 21:00 01/22/18 22:59 12/28/17 08:30 Iron Sucrose 100 mg/Sodium Chloride 60 ml @ 240 mls/hr BEDTIME IV 12/25/17 21:00 12/29/17 21:14 12/27/17 20:52 Levofloxacin 150 ml @ 100 mls/hr Q48H IVPB 12/25/17 21:00 01/01/18 20:59 12/27/17 21:24 Olanzapine (ZyPREXA) 5 mg Q6H PRN ORAL agitation 12/25/17 15:59 01/23/18 15:58 12/28/17 01:45 Ondansetron HCl (Zofran) 4 mg Q6H PRN IVP Nausea & Vomiting 12/25/17 15:59 01/22/18 15:58 Polyethylene Glycol (Miralax) 17 gm DAILYPRN PRN ORAL Constipation 12/25/17 16:00 01/22/18 15:59 12/27/17 18:03 Prednisone (predniSONE) 60 mg Taper DAILY ORAL 12/28/17 09:00 01/03/18 08:59 12/28/17 08:29 Promethazine HCl/ Codeine (Phenergan with Codeine) 5 ml Q4H PRN ORAL For Cough 12/25/17 16:01 01/23/18 16:00 12/27/17 18:03 Temazepam (Restoril) 15 mg HSPRN PRN ORAL Insomnia 12/25/17 21:00 12/30/17 20:59 12/26/17 22:33 Theophylline (Ramesh-Dur) 100 mg EVERY 12 HOURS ORAL 12/25/17 21:00 01/23/18 20:59 12/28/17 08:29 Coty De Santiago M.D. December 28, 2017 12:18
--- NOTE | 2017-12-28 12:29 | General Progress Note ---
Assessment/Plan Assessment/Plan dementia with behavioral dist encephalopathy -Zyprexa 5mg q6 prn -dc restraints and use meds -d/w charge nurse Subjective Date patient seen: December 28, 2017 Neurologic/Psychiatric: Reports: anxiety, depressed, emotional problems Allergies: Coded Allergies: No Known Allergies (Unverified , 07/31/16) Subjective the pt is in restraint. The pt has behavioral issues and is confused. Objective Last 24 Hour Vital Signs Date Time Temp Pulse Resp B/P (MAP) Pulse Ox O2 Delivery O2 Flow Rate FiO2 12/28/17 12:00 95.9 59 20 129/51 96 Nasal Cannula 2.0 95.9 12/28/17 08:00 95.9 54 20 138/61 95 95.9 12/28/17 05:48 150/68 12/28/17 04:00 97.0 62 19 150/68 90 97.0 12/28/17 03:13 88 20 98 Nasal Cannula 2.0 28 12/28/17 03:01 63 18 97 Nasal Cannula 2.0 28 12/27/17 23:46 96.8 68 20 154/85 92 Nasal Cannula 96.8 12/27/17 21:25 171/63 12/27/17 21:02 Nasal Cannula 2.0 28 12/27/17 21:02 96 Nasal Cannula 2.0 28 12/27/17 21:02 66 20 Nasal Cannula 2.0 28 12/27/17 19:21 97.2 73 20 171/63 91 Room Air 97.2 12/27/17 16:00 97.9 67 18 127/53 94 Nasal Cannula 2.0 97.9 12/27/17 14:47 149/92 Intake and Output 12/27/17 12/28/17 19:00 07:00 Intake Total 600 ml Balance 600 ml Intake Oral 600 ml # Voids 4 2 Laboratory Tests 12/28/17 05:05: White Blood Count 9.7, Red Blood Count 3.71L, Hemoglobin 10.5L, Hematocrit 31.9L , Mean Corpuscular Volume 86, Mean Corpuscular Hemoglobin 28.3, Mean Corpuscular Hemoglobin Concent 33.0, Red Cell Distribution Width 13.0, Platelet Count 286, Mean Platelet Volume 5.5L, Neutrophils (%) (Auto) 73.6, Lymphocytes ( %) (Auto) 16.6L, Monocytes (%) (Auto) 8.8, Eosinophils (%) (Auto) 0.0, Basophils (%) (Auto) 0.9, Sodium Level 143, Potassium Level 3.7, Chloride Level 102, Carbon Dioxide Level 32, Anion Gap 9, Blood Urea Nitrogen 38H, Creatinine 1.1, Estimat Glomerular Filtration Rate , Glucose Level 101, Calcium Level 9.5 Height (Feet): 5 Height (Inches): 3.00 Weight (Pounds): 120 General Appearance: no apparent distress, lethargic, confused, agitated Bismark Jung M.D. December 28, 2017 12:29
--- NOTE | 2017-12-28 15:43 | Pulmonology Progress Note ---
Assessment/Plan Problems: (1) Acute respiratory failure (2) COPD (chronic obstructive pulmonary disease) (3) HTN (hypertension) (4) At high risk for aspiration Assessment/Plan improving no new complains continue respiratory treatment pt is high risk at aspiration aspiration precaution d/w speech pathologist dc to senior living consider comfort feeding and hospice care Subjective ROS Limited/Unobtainable: No Constitutional: Reports: no symptoms HEENT: Repors: no symptoms Respiratory: Reports: no symptoms Allergies: Coded Allergies: No Known Allergies (Unverified , 07/31/16) Objective Last 24 Hour Vital Signs Date Time Temp Pulse Resp B/P (MAP) Pulse Ox O2 Delivery O2 Flow Rate FiO2 12/28/17 14:00 129/51 12/28/17 12:00 95.9 59 20 129/51 96 Nasal Cannula 2.0 95.9 12/28/17 09:35 Nasal Cannula 2.0 28 12/28/17 09:35 57 16 Nasal Cannula 2.0 28 12/28/17 09:35 95 Nasal Cannula 2.0 28 12/28/17 08:00 95.9 54 20 138/61 95 95.9 12/28/17 05:48 150/68 12/28/17 04:00 97.0 62 19 150/68 90 97.0 12/28/17 03:13 88 20 98 Nasal Cannula 2.0 28 12/28/17 03:01 63 18 97 Nasal Cannula 2.0 28 12/27/17 23:46 96.8 68 20 154/85 92 Nasal Cannula 96.8 12/27/17 21:25 171/63 12/27/17 21:02 Nasal Cannula 2.0 28 12/27/17 21:02 96 Nasal Cannula 2.0 28 12/27/17 21:02 66 20 Nasal Cannula 2.0 28 12/27/17 19:21 97.2 73 20 171/63 91 Room Air 97.2 12/27/17 16:00 97.9 67 18 127/53 94 Nasal Cannula 2.0 97.9 Intake and Output 12/27/17 12/28/17 19:00 07:00 Intake Total 600 ml Balance 600 ml Intake Oral 600 ml # Voids 4 2 General Appearance: WD/WN HEENT: normocephalic, atraumatic Respiratory/Chest: chest wall non-tender, lungs clear Breasts: no masses Cardiovascular: normal peripheral pulses Abdomen: normal bowel sounds, soft, non tender Genitourinary: normal external genitalia Skin: no rash Neurologic/Psychiatric: manager strategic II-XII grossly normal, abnormal gait Laboratory Tests 12/28/17 05:05: White Blood Count 9.7, Red Blood Count 3.71L, Hemoglobin 10.5L, Hematocrit 31.9L , Mean Corpuscular Volume 86, Mean Corpuscular Hemoglobin 28.3, Mean Corpuscular Hemoglobin Concent 33.0, Red Cell Distribution Width 13.0, Platelet Count 286, Mean Platelet Volume 5.5L, Neutrophils (%) (Auto) 73.6, Lymphocytes ( %) (Auto) 16.6L, Monocytes (%) (Auto) 8.8, Eosinophils (%) (Auto) 0.0, Basophils (%) (Auto) 0.9, Sodium Level 143, Potassium Level 3.7, Chloride Level 102, Carbon Dioxide Level 32, Anion Gap 9, Blood Urea Nitrogen 38H, Creatinine 1.1, Estimat Glomerular Filtration Rate , Glucose Level 101, Calcium Level 9.5 Current Medications Medications (Trade) Dose Ordered Sig/Janessa Route PRN Reason Start Time Stop Time Status Last Admin Dose Admin Acetaminophen (Tylenol) 650 mg Q4H PRN ORAL T>100.5 12/25/17 15:59 01/22/18 15:58 Albuterol/ Ipratropium (Albuterol/ Ipratropium) 3 ml Q4H PRN HHN Shortness of Breath 12/27/17 11:59 12/30/17 11:58 12/28/17 03:00 Clonidine HCl (Catapres Tab) 0.1 mg EVERY 8 HOURS ORAL 12/25/17 22:00 01/22/18 21:59 12/28/17 05:48 Heparin Sodium (Porcine) (Heparin 5000 units/ml) 5,000 units EVERY 12 HOURS SUBQ 12/25/17 21:00 01/22/18 22:59 12/28/17 08:30 Iron Sucrose 100 mg/Sodium Chloride 60 ml @ 240 mls/hr BEDTIME IV 12/25/17 21:00 12/29/17 21:14 12/27/17 20:52 Olanzapine (ZyPREXA) 5 mg Q6H PRN ORAL agitation 12/25/17 15:59 01/23/18 15:58 12/28/17 01:45 Ondansetron HCl (Zofran) 4 mg Q6H PRN IVP Nausea & Vomiting 12/25/17 15:59 01/22/18 15:58 Polyethylene Glycol (Miralax) 17 gm DAILYPRN PRN ORAL Constipation 12/25/17 16:00 01/22/18 15:59 12/27/17 18:03 Prednisone (predniSONE) 60 mg Taper DAILY ORAL 12/28/17 09:00 01/03/18 08:59 12/28/17 08:29 Promethazine HCl/ Codeine (Phenergan with Codeine) 5 ml Q4H PRN ORAL For Cough 12/25/17 16:01 01/23/18 16:00 12/27/17 18:03 Temazepam (Restoril) 15 mg HSPRN PRN ORAL Insomnia 12/25/17 21:00 12/30/17 20:59 12/26/17 22:33 Theophylline (Ramesh-Dur) 100 mg EVERY 12 HOURS ORAL 12/25/17 21:00 01/23/18 20:59 12/28/17 08:29 Maureen Perkins MD December 28, 2017 15:43
[2017-12-28 15:50] VITALS: BP 138/63
--- NOTE | 2017-12-29 09:47 | General Progress Note ---
Assessment/Plan Status: doing well Assessment/Plan #. Anemia due to underlying chronic disease --> anemia workup has been reviewed, indices of iron are elevated --> hold off on iron, would be of minimal/equivocal benefit #. Neutrophilia. Continue to closely monitor for improvement. --> now better #. Azotemia, potentially secondary to dehydration. #. Chronic obstructive pulmonary disease, currently some shortness of breath noted, dyspnea on exertion. #. Hypertension, systolic blood pressure goal less than 140. Subjective Date patient seen: December 28, 2017 Allergies: Coded Allergies: No Known Allergies (Unverified , 07/31/16) All Systems: reviewed and negative except above Subjective Patient is stable and medically cleared for discharge to snf. No fevers, no bleeding, no chills Objective Last 24 Hour Vital Signs Date Time Temp Pulse Resp B/P (MAP) Pulse Ox O2 Delivery O2 Flow Rate FiO2 12/28/17 16:00 Nasal Cannula 2.0 12/28/17 15:50 97.2 57 20 138/63 96 97.2 12/28/17 14:00 129/51 12/28/17 12:00 95.9 59 20 129/51 96 Nasal Cannula 2.0 95.9 Intake and Output 12/28/17 12/29/17 19:00 07:00 Intake Total 240 ml Balance 240 ml Intake Oral 240 ml # Voids 3 Height (Feet): 5 Height (Inches): 3.00 Weight (Pounds): 120 General Appearance: no apparent distress EENT: normal ENT inspection Neck: supple Cardiovascular: normal rate Respiratory/Chest: lungs clear Asa Burrell MD December 29, 2017 09:47
--- NOTE | 2017-12-31 06:59 | Diagnostic Imaging Report ---
APPROVED REPORT CPT Code: 60995 Present Symptoms Comments: BILATERAL LEGS PAIN. BILATERAL: Imaging reveals a patent deep venous system bilaterally. There is no evidence of thrombus within the femoral, popliteal or tibial segments. The greater saphenous veins are also within normal limits. Doppler indicates normal spontaneous flow within these segments.
--- NOTE | 2017-12-31 08:56 | Discharge Summary ---
Discharge Summary Discharge Summary _ DATE OF ADMISSION: 12/23/2017 DATE OF DISCHARGE: 12/28/2017 REASON FOR ADMISSION: 87 years old female with past medical history significant for hypertension, dementia,COPD ,presented from the nursing facility with complaints of shortness of breath. In ED, patient was noncompliant and combative with the staff. Patient was unable to provide any history. Patient was tachycardic, hypoxemic and required placement on BiPAP. Blood pressure was elevated 173/69, troponin was negative. EKG revealed sinus tachycardia, no acute ischemic changes. Chest x-ray revealed no acute process. Pro BNP 836. Stable renal parameters, electrolytes, liver enzymes. No leukocytosis. Mild anemia with hemoglobin 10.0 , hematocrit 31.2. Patient admitted with diagnosis of acute respiratory failure, COPD exacerbation, hypertension. CONSULTANTS: rewinder operator Dr. Mckay ID specialist Dr. Washburn membership correspondent/oncologist Dr. Burrell psychiatrist [facility] COURSE: Patient admitted. Patient initially was on BiPAP. BiPAP settings were titrated to keep pulse oximetry above 92%. Pulmonary toilet provided with hand- held nebulizer and chest physiotherapy. Patient started on the IV steroids which were gradually tapered and subsequently changed to oral route. Patient started on trial of theophylline and empiric antibiotic. Infectious disease specialist closely followed. Sputum culture was negative. Chest x-ray revealed no acute cardiopulmonary pathology. Patient status post antibiotic treatment, per ID recommendations. Patient undergone bedside swallow evaluation and video swallow evaluation which revealed dysphagia and high aspiration risk. Diet for [id number] was started as recommended per speech therapist with strict aspiration/reflux precautions. Graphic Arts Technician closely followed. Troponin 2 were negative. EKG revealed no acute ischemic changes. Echocardiogram revealed grossly preserved ejection fraction and evidence of moderate pulmonary hypertension with right ventricular systolic pressure of 49. Per rewinder operator, shortness of breath and acute respiratory failure were likely due to to COPD exacerbation , no cardiac events at this time. Telemetry was stable, sinus tachycardia initially then converted to sinus atrium, no acute ischemic changes noted. Blood pressure was managed with hydralazine, remained. stable. Hemoglobin and hematocrit were closely monitored. No need for transfusion. Goal was to keep hemoglobin above 8. Content Management Specialist closely followed. Patient was initially on intravenous Venofer. Per membership correspondent, Venofer was stopped. Anemia workup revealed anemia of chronic disease. Bowel regimen was instituted. DVT prophylaxis provided. Psychiatrist closely followed and diagnosed patient with dementia with behavioral disturbances and encephalopathy. Patient was started on Zyprexa. Patient clinically improved, respiratory status stable . Patient was able to be weaned from BiPAP, pulse oximetry stable on oxygen via nasal cannula, no evidence of respiratory distress . Steroids discontinued. Behavior under control . Blood pressure stable. Patient was arianne for discharge back to [facility] facility , consider comfort measures. FINAL DIAGNOSES: Acute hypoxemic respiratory failure requiring BiPAP, resolved COPD exacerbation Hypertension Moderate pulmonary hypertension Dysphagia with high aspiration risk Dementia with behavioral disturbances Encephalopathy Anemia of chronic disease DISCHARGE MEDICATIONS: See Medication Reconciliation list. DISCHARGE INSTRUCTIONS: Patient was discharged to [facility] facility. Follow up with medical doctor at the facility. 87 years old female Rosa Maria Patel MAINTENANCE MANAGER December 31, 2017 08:56
== END 2017-12-28 17:44 | DRG 189 ==
LOC: EDBD 17:35 → EMR 18:09 → ICU 18:12 → EDBEDREQSVC 18:25 → EDBEDREQ 21:29 → 2W 12-24 13:46 → 4W 12-25 15:54
PROC: 5A09357 Assistance with Respiratory Ventilation, Less than 24 Consecutive Hours, Continuous Positive Airway Pressure (ICD-10-PCS; principal; 2017-12-23)
DX: J96.01 Acute respiratory failure with hypoxia (principal); G93.40 Encephalopathy, unspecified; J44.1 Chronic obstructive pulmonary disease with (acute) exacerbation; F03.91 Unspecified dementia, unspecified severity, with behavioral disturbance; D63.8 Anemia in other chronic diseases classified elsewhere; I10 Essential (primary) hypertension; J40 Bronchitis, not specified as acute or chronic; I25.10 Atherosclerotic heart disease of native coronary artery without angina pectoris; I50.9 Heart failure, unspecified; K21.9 Gastro-esophageal reflux disease without esophagitis; E11.9 Type 2 diabetes mellitus without complications; E86.0 Dehydration; I27.20 Pulmonary hypertension, unspecified; R13.10 Dysphagia, unspecified; I25.2 Old myocardial infarction
CPT/HCPCS: 36415; 71045; 74230; 80048; 80053; 80069; 81003; 82378; 82550; 82553; 82607; 82728; 82746; 82962; 83540; 83550; 83605; 83615; 83690; 83880; 83921; 84238; 84443; 84484; 85007; 85025; 85044; 85060; 85384; 85610; 85651; 85730; 87040; 87070; 87081; 87086; 87205; 92610; 93005; 93306; 93970; 94640; 94660; 94664; 94760; 99291; J2250; J7620

== ENCOUNTER 2018-01-06 16:28 | Inpatient (IN) | payer MEDICARE, MEDICAID ==
[~2018-01-06] VITALS: Ht 152.4 cm; Wt 59.0 kg
[~2018-01-06 16:28] MED LIST changes: +ACETAMINOPHEN325 M1 ORAL; +DUONEB 0.5-3(2.53 ML HHN; +FUROSEMIDE20 M1 ORAL; +HYDROMORPHONE HC2 M1 PO; +IPRAT-ALBUT 0.5-3 ML IH; +LORazepam Inj 2mg/ml 1ml ONE; +MULTIVITAMINS1 EAC8 ORAL; +TRAMADOL HCL50 MG ORAL; +VITAMIN B COMP1 EAC7 PO; +VITAMIN C500 M1 ORAL
[2018-01-06] MEDS ORDERED: Sodium Chloride 500ML 500 ML IV ONE (16:31)
[2018-01-06 16:35] VITALS: BP 147/59
[2018-01-06] MEDS ORDERED: THEOPHYLLINE A100 MG ORAL (16:38)
[2018-01-06] MEDS ORDERED: RESTORIL15 MG ORAL (16:38)
[2018-01-06] MEDS ORDERED: CRANBERRY450 M4 PO (16:40)
[2018-01-06] MEDS ORDERED: Solu-MEDROL 125mg Inj IVP ONE (16:45)
[2018-01-06] MEDS ORDERED: LORazepam Inj 2mg/ml 1ml IM ONE (16:45)
[2018-01-06] MEDS: Ipratropium 0.02% Inh Soln 2.5ml UD HHN SCH ×3 (16:49→17:36)
[2018-01-06] MEDS: Albuterol ud Inhalation HHN SCH ×3 (16:49→17:36)
[2018-01-06 16:58] LABS: HEMATOCRIT 38.5 % (37.0-47.0); HEMOGLOBIN 12.6 G/DL (12.0-16.0); MEAN CORPUSCULAR VOLUME 86 FL (80-99); PLATELET COUNT 381 K/UL (150-450); RED BLOOD COUNT 4.46 M/UL (4.20-5.40); RED CELL DISTRIBUTION WIDTH 14.9 % (11.6-14.8); WHITE BLOOD COUNT 13.1 K/UL (4.8-10.8)
[2018-01-06 17:09] LABS: ANION GAP 9 mmol/L (5-15); BLOOD UREA NITROGEN 36 mg/dL (7-18); CALCIUM 9.5 MG/DL (8.5-10.1); CARBON DIOXIDE 32 MMOL/L (21-32); CHLORIDE 96 MMOL/L (98-107); CREATININE 1.4 MG/DL (0.55-1.30); POTASSIUM 4.8 MMOL/L (3.5-5.1); SODIUM 136 MMOL/L (136-145)
[2018-01-06 17:24] LABS: ALANINE AMINOTRANSFERASE 34 U/L (12-78); ALBUMIN 3.2 G/DL (3.4-5.0); ALBUMIN/GLOBULIN RATIO 0.6 (1.0-2.7); ALKALINE PHOSPHATASE 118 U/L (46-116); ASPARTATE AMINO TRANSFERASE 24 U/L (15-37); BILIRUBIN,TOTAL 0.3 MG/DL (0.2-1.0); CKMB 0.9 NG/ML (0.0-3.6); CREATINE KINASE 34 U/L (26-308)
--- NOTE | 2018-01-06 18:43 | Emergency Room Report ---
History of Present Illness General Chief Complaint: Dyspnea/Respdistress Source: Medical Record Present Illness HPI 87-year-old female presents ED evaluation of shortness of breath. Patient comes from half-way facility with low O2 sat. EMS noted that patient is very congested. Nursing staff attempted suctioning but patient refused treatment. Patient does have dementia and paranoia schizophrenia. Patient also refused breathing treatments by EMS. Upon arrival patient is in distress. Crying. O2 sats are improved on nonrebreather. Patient is unable to provide any additional history at this time. No other aggravating relieving factors. No other associated symptoms Allergies: Coded Allergies: No Known Allergies (Unverified , 07/31/16) Patient History Past Medical History: HTN, COPD, dementia, psych hx Past Surgical History: none Pertinent Family History: none Social History: Denies: smoking, alcohol use, drug use Now: No Immunizations: UTD Reviewed Nursing Documentation: PMH: Agreed; PSxH: Agreed Nursing Documentation-PMH Hx Hypertension: Yes Hx Diabetes: Yes - Anemia, Vitamin D deficiency History Of Psychiatric Problem: Yes - PSYCHOSIS Hx Dementia: Yes Review of Systems All Other Systems: limited Physical Exam Vital Signs Date Time Temp Pulse Resp B/P (MAP) Pulse Ox O2 Delivery O2 Flow Rate FiO2 01/06/18 16:26 110 24 160/90 90 Non-Rebreather 01/06/18 16:35 97.0 97.0 01/06/18 16:49 21 Sp02 EP Interpretation: reviewed, normal General Appearance: alert, mild distress Head: normocephalic Eyes: bilateral eye normal inspection, bilateral eye PERRL ENT: normal ENT inspection, normal voice Respiratory: decreased breath sounds, crackles, wheezing Cardiovascular #1: no edema, tachycardia Gastrointestinal: normal inspection Rectal: deferred Genitourinary: no CVA tenderness Musculoskeletal: normal inspection Neurologic: alert, other - dementia Psychiatric: other - dementia Skin: normal inspection Lymphatic: normal inspection Medical Decision Making Diagnostic Impression: Primary Impression: COPD (chronic obstructive pulmonary disease) Qualified Codes: J44.9 - Chronic obstructive pulmonary disease, unspecified Additional Impressions: LUKASZ (acute kidney injury) Sepsis Qualified Codes: A41.9 - Sepsis, unspecified organism ER Course Hospital Course 87-year-old female presents ED with respiratory distress, low O2 sats. Differential diagnoses include: Pneumonia, CHF exacerbation, pneumothorax, fluid overload Clinical course Patient placed on stretcher. On clinical research monitor with tachycardia, tachypnea. During exam patient appears very anxious, not cooperating with exam. Significant crackles congestion noted on exam. Wheezing. Patient will require sedation, restraints for treatment given her history of psychosis Patient given Ativan. Restraints. Respiratory therapist provided deep suctioning, breathing treatments. On reassessment patient appears more calm. Breathing has improved. I ordered labs, IV fluids, EKG, chest x-ray, blood cultures, UA. Labs - noted leukocytosis noted, hemoglobin/hematocrit stable, Cr 1.4, lactate 2.3, troponins negative EKG - sinus tachycardia, twave inversions in lateral leads CXR - hyperinflated lungs. atelectasis in lower lung [place] given abx. given 30cc/kg fluid bolus Case discussed with Dr. Perkins and he agreed to the patient to his service for further care and support I feel this is a highly complex case requiring extensive working including EKG/ Rhythm strip, Xray/CT/US, Blood/urine lab work, repeat exams while in ED, and administration of strong opiates/narcotics for pain control, admission to hospital or close patient follow up. Diagnosis - COPD exacerbation, LUKASZ, sepsis Patient admitted to telemetry in serious condition Labs Test 01/06/18 16:40 01/06/18 17:56 White Blood Count 13.1 K/UL (4.8-10.8) Red Blood Count 4.46 M/UL (4.20-5.40) Hemoglobin 12.6 G/DL (12.0-16.0) Hematocrit 38.5 % (37.0-47.0) Mean Corpuscular Volume 86 FL (80-99) Mean Corpuscular Hemoglobin 28.2 PG (27.0-31.0) Mean Corpuscular Hemoglobin Concent 32.7 G/DL (32.0-36.0) Red Cell Distribution Width 14.9 % (11.6-14.8) Platelet Count 381 K/UL (150-450) Mean Platelet Volume 5.4 FL (6.5-10.1) Neutrophils (%) (Auto) % (45.0-75.0) Lymphocytes (%) (Auto) % (20.0-45.0) Monocytes (%) (Auto) % (1.0-10.0) Eosinophils (%) (Auto) % (0.0-3.0) Basophils (%) (Auto) % (0.0-2.0) Differential Total Cells Counted 100 Neutrophils % (Manual) 91 % (45-75) Lymphocytes % (Manual) 7 % (20-45) Monocytes % (Manual) 2 % (1-10) Eosinophils % (Manual) 0 % (0-3) Basophils % (Manual) 0 % (0-2) Band Neutrophils 0 % (0-8) Platelet Estimate Adequate Platelet Morphology Normal Red Blood Cell Morphology Normal Sodium Level 136 MMOL/L (136-145) Potassium Level 4.8 MMOL/L (3.5-5.1) Chloride Level 96 MMOL/L (98-107) Carbon Dioxide Level 32 MMOL/L (21-32) Anion Gap 9 mmol/L (5-15) Blood Urea Nitrogen 36 mg/dL (7-18) Creatinine 1.4 MG/DL (0.55-1.30) Estimat Glomerular Filtration Rate mL/min (>60) Glucose Level 208 MG/DL (74-106) Lactic Acid Level 2.30 mmol/L (0.66-2.22) Calcium Level 9.5 MG/DL (8.5-10.1) Total Bilirubin 0.3 MG/DL (0.2-1.0) Aspartate Amino Transf (AST/SGOT) 24 U/L (15-37) Alanine Aminotransferase (ALT/SGPT) 34 U/L (12-78) Alkaline Phosphatase 118 U/L (46-116) Total Creatine Kinase 34 U/L (26-308) Creatine Kinase MB 0.9 NG/ML (0.0-3.6) Creatine Kinase MB Relative Index 2.6 Troponin I 0.000 ng/mL (0.000-0.056) Pro-B-Type Natriuretic Peptide 135 pg/mL (0-125) Total Protein 8.4 G/DL (6.4-8.2) Albumin 3.2 G/DL (3.4-5.0) Globulin 5.2 g/dL Albumin/Globulin Ratio 0.6 (1.0-2.7) EKG Diagnostic Results Rate: tachycardiac Rhythm: NSR ST Segments: other - inversions in lateral leads. LVH ASA given to the pt in ED: No Rhythm Strip Diag. Results EP Interpretation: yes Rhythm: NSR, no PVC's, no ectopy Chest X-Ray Diagnostic Results Chest X-Ray Diagnostic Results : Chest X-Ray Ordered: Yes # of Views/Limited/Complete: 1 View Indication: Shortness of Breath EP Interpretation: Yes Interpretation: no consolidation, no pneumothorax, no acute cardiopulmonary disease, other - atelectasis lower lung bases Impression: Other - COPD/PNA Electronically Signed by: Electronically signed by Darryl Viramontes MD Last Vital Signs Date Time Temp Pulse Resp B/P (MAP) Pulse Ox O2 Delivery O2 Flow Rate FiO2 01/06/18 18:04 112 21 99 Room Air 21 01/06/18 16:35 97.0 147/59 97.0 Status: improved Disposition: ADMITTED INPATIENT Condition: Serious Referrals: NON PHYSICIAN (PCP) Darryl Viramontes MD January 06, 2018 18:43
[2018-01-06 18:47] LABS: APPEARANCE,URINE CLEAR; BILIRUBIN, URINE NEGATIVE (NEGATIVE); GLUCOSE, URINE (UA) NEGATIVE (NEGATIVE); KETONES,URINE NEGATIVE (NEGATIVE); LEUKOCYTE ESTERASE ,URINE 1+ (NEGATIVE); NITRITE,URINE NEGATIVE (NEGATIVE); PH,URINE 6 (4.5-8.0); PROTEIN,URINE NEGATIVE (NEGATIVE); UROBILINOGEN,URINE NORMAL MG/DL (0.0-1.0)
[2018-01-06 18:50] LABS: COLOR,URINE YELLOW
[2018-01-06] MEDS ORDERED: Promethazine/Codeine 5ml UD ORAL PRN (19:00)
[2018-01-06] MEDS ORDERED: Albuterol/Ipratropium 3ml neb HHN PRN (19:00)
[2018-01-06] MEDS ORDERED: Nitroglycerin Subl 0.4mg tab SL PRN (19:00)
[2018-01-06] MEDS ORDERED: LORazepam Inj 2mg/ml 1ml IV PRN (19:00)
[2018-01-06 19:11] VITALS: BP 134/23
[2018-01-06 20:10] VITALS: BP 121/45
[2018-01-06 21:00] VITALS: BP 131/63
--- NOTE | 2018-01-06 21:43 | History and Physical ---
History of Present Illness General Date patient seen: January 07, 2018 Reason for Hospitalization: Dyspnea/Respdistress Present Illness HPI 87-year-old female with PMHx of end stage dementia, paranoia schizophrenia, COPD , HTN, recurrent hospitalization, [facility] resident presented to ED evaluation of shortness of breath. She had low O2 sat. EMS noted that patient is very congested. Patient is unable to provide any additional history at this time. sh is admitted to telemetry for acute respiratory failure and possible aspiration. Allergies: Coded Allergies: No Known Allergies (Unverified , 07/31/16) Medication History Scheduled Ascorbic Acid* (Vitamin C*), 500 MG ORAL DAILY, (Reported) Atorvastatin Calcium* (Atorvastatin Calcium*), 20 MG ORAL BEDTIME, (Reported) Clonidine Hcl* (Catapres*), 0.1 MG ORAL EVERY 8 HOURS, (Reported) Cranberry Fruit Concentrate (Cranberry), 450 MG PO BID, (Reported) Docusate Sodium* (Docusate Sodium*), 100 MG ORAL DAILY, (Reported) Famotidine (Famotidine), 20 MG ORAL DAILY, (Reported) Folic Acid* (Folic Acid*), 1 MG ORAL DAILY, (Reported) Furosemide (Furosemide), 20 MG ORAL 2XW Furosemide* (Lasix*), 20 MG ORAL TWICE A WEEK, (Reported) Hydralazine Hcl* (Hydralazine Hcl*), 25 MG ORAL BID, (Reported) Ipratropium/Albuterol Sulfate (Iprat-Albut 0.5-3(2.5) Mg/3 Ml), 3 ML IH EVERY 4 HOURS, (Reported) Multivitamin With Minerals (Multivitamins With Minerals*), 1 TAB ORAL DAILY, ( Reported) Na Phos,M-B/Na Phos,Di-Ba* (Fleet Enema*), 133 ML RECTAL NEEDED, (Reported) Theophylline (Theodur*), 100 MG ORAL TWICE A DAY, (Reported) Tramadol Hcl* (Ultram*), 50 MG ORAL ONCE, (Reported) Vit B Comp/C/Fa/Iron/Vit E (Vitamin B Complex Tablet), 1 TAB PO DAILY, (Reported ) Scheduled PRN Acetaminophen* (Tylenol Extra Strength*), 500 MG ORAL Q6H PRN for For Pain, ( Reported) Acetaminophen* (Acetaminophen 325MG Tablet*), 650 MG ORAL Q6H PRN for For Pain, (Reported) Bisacodyl (Dulcolax), 10 MG RC for Constipation, (Reported) Hydromorphone Hcl (Hydromorphone Hcl), 2 MG PO EVERY 6 HOURS PRN for For Pain, ( Reported) Magnesium Hydroxide* (Milk Of Magnesia*), 30 ML ORAL DAILY PRN for Constipation, (Reported) Temazepam* (Restoril*), 15 MG ORAL BEDTIME PRN for Insomnia, (Reported) Patient History Healthcare decision maker Resuscitation status Advanced Directive on File Past Medical/Surgical History Past Medical/Surgical History: (1) Psychosis (2) COPD (chronic obstructive pulmonary disease) (3) Diabetes (4) HTN (hypertension) Review of Systems Respiratory: Reports: orthopnea, shortness of breath Physical Exam General Appearance: WD/WN, no apparent distress Lines, tubes and drains: peripheral HEENT: normocephalic, atraumatic Neck: non-tender, normal alignment Respiratory/Chest: chest wall non-tender, lungs clear, normal breath sounds Breasts: no masses Cardiovascular/Chest: normal peripheral pulses Abdomen: normal bowel sounds Genitourinary/Rectal: normal genital exam Extremities: normal range of motion Skin Exam: normal pigmentation Last 24 Hour Vital Signs Date Time Temp Pulse Resp B/P (MAP) Pulse Ox O2 Delivery O2 Flow Rate FiO2 01/06/18 20:10 97.8 112 23 134/23 95 Room Air 21 97.8 01/06/18 20:10 112 18 121/45 97 Room Air 01/06/18 19:11 97.8 116 23 134/23 95 Room Air 97.8 01/06/18 18:04 112 21 99 Room Air 21 01/06/18 17:36 21 01/06/18 17:33 100 16 100 Room Air 21 01/06/18 17:31 100 16 100 Room Air 21 01/06/18 17:05 21 01/06/18 17:05 95 16 100 Room Air 21 01/06/18 17:01 96 15 100 Room Air 21 01/06/18 16:49 96 27 93 Room Air 21 01/06/18 16:49 21 01/06/18 16:35 97.0 107 27 147/59 91 Room Air 97.0 01/06/18 16:35 110 24 Room Air 01/06/18 16:26 110 24 160/90 90 Non-Rebreather Laboratory Tests Test 01/06/18 16:40 01/06/18 17:56 White Blood Count 13.1 K/UL (4.8-10.8) H Red Blood Count 4.46 M/UL (4.20-5.40) Hemoglobin 12.6 G/DL (12.0-16.0) Hematocrit 38.5 % (37.0-47.0) Mean Corpuscular Volume 86 FL (80-99) Mean Corpuscular Hemoglobin 28.2 PG (27.0-31.0) Mean Corpuscular Hemoglobin Concent 32.7 G/DL (32.0-36.0) Red Cell Distribution Width 14.9 % (11.6-14.8) H Platelet Count 381 K/UL (150-450) Mean Platelet Volume 5.4 FL (6.5-10.1) L Neutrophils (%) (Auto) % (45.0-75.0) Lymphocytes (%) (Auto) % (20.0-45.0) Monocytes (%) (Auto) % (1.0-10.0) Eosinophils (%) (Auto) % (0.0-3.0) Basophils (%) (Auto) % (0.0-2.0) Differential Total Cells Counted 100 Neutrophils % (Manual) 91 % (45-75) H Lymphocytes % (Manual) 7 % (20-45) L Monocytes % (Manual) 2 % (1-10) Eosinophils % (Manual) 0 % (0-3) Basophils % (Manual) 0 % (0-2) Band Neutrophils 0 % (0-8) Platelet Estimate Adequate Platelet Morphology Normal Red Blood Cell Morphology Normal Sodium Level 136 MMOL/L (136-145) Potassium Level 4.8 MMOL/L (3.5-5.1) Chloride Level 96 MMOL/L (98-107) L Carbon Dioxide Level 32 MMOL/L (21-32) Anion Gap 9 mmol/L (5-15) Blood Urea Nitrogen 36 mg/dL (7-18) H Creatinine 1.4 MG/DL (0.55-1.30) H Estimat Glomerular Filtration Rate mL/min (>60) Glucose Level 208 MG/DL (74-106) H Lactic Acid Level 2.30 mmol/L (0.66-2.22) H 2.20 mmol/L (0.66-2.22) Calcium Level 9.5 MG/DL (8.5-10.1) Total Bilirubin 0.3 MG/DL (0.2-1.0) Aspartate Amino Transf (AST/SGOT) 24 U/L (15-37) Alanine Aminotransferase (ALT/SGPT) 34 U/L (12-78) Alkaline Phosphatase 118 U/L (46-116) H Total Creatine Kinase 34 U/L (26-308) Creatine Kinase MB 0.9 NG/ML (0.0-3.6) Creatine Kinase MB Relative Index 2.6 Troponin I 0.000 ng/mL (0.000-0.056) Pro-B-Type Natriuretic Peptide 135 pg/mL (0-125) H Total Protein 8.4 G/DL (6.4-8.2) H Albumin 3.2 G/DL (3.4-5.0) L Globulin 5.2 g/dL Albumin/Globulin Ratio 0.6 (1.0-2.7) L Urine Color Yellow Urine Appearance Clear Urine pH 6 (4.5-8.0) Urine Specific [place] 1.020 (1.005-1.035) Urine Protein Negative (NEGATIVE) Urine Glucose (UA) Negative (NEGATIVE) Urine Ketones Negative (NEGATIVE) Urine Occult Blood 2+ (NEGATIVE) H Urine Nitrite Negative (NEGATIVE) Urine Bilirubin Negative (NEGATIVE) Urine Urobilinogen Normal MG/DL (0.0-1.0) Urine Leukocyte Esterase 1+ (NEGATIVE) H Urine RBC 5-10 /HPF (0 - 2) H Urine WBC 5-10 /HPF (0 - 2) H Urine Squamous Epithelial Cells Few /LPF (NONE/OCC) Urine Bacteria Many /HPF (NONE) H Height (Feet): 5 Weight (Pounds): 130 Medications Current Medications Medications (Trade) Dose Ordered Sig/Janessa Route PRN Reason Start Time Stop Time Status Last Admin Dose Admin Acetaminophen (Tylenol) 650 mg Q4H PRN ORAL fever 01/06/18 19:00 02/05/18 18:59 Albuterol/ Ipratropium (Albuterol/ Ipratropium) 3 ml EVERY 4 HOURS PRN HHN dyspnea 01/06/18 19:00 01/11/18 18:59 Clonidine HCl (Catapres Tab) 0.1 mg EVERY 4 HOURS PRN ORAL sbp more than 160 01/06/18 19:00 02/05/18 18:59 Clonidine HCl (Catapres Tab) 0.1 mg EVERY 8 HOURS ORAL 01/06/18 22:00 02/05/18 21:59 Dextrose (Dextrose 50%) STAT PRN IV Hypoglycemia 01/06/18 19:00 02/05/18 18:59 Heparin Sodium (Porcine) (Heparin 5000 units/ml) 5,000 units EVERY 12 HOURS SUBQ 01/06/18 21:00 02/05/18 20:59 Hydralazine HCl (Apresoline) 25 mg BID ORAL 01/07/18 09:00 02/06/18 08:59 Levofloxacin 50 ml @ 50 mls/hr Q24H IVPB 01/07/18 17:00 01/14/18 16:59 Lorazepam (Ativan 2mg/ml 1ml) 0.5 mg Q4H PRN IV For Anxiety 01/06/18 19:00 01/13/18 18:59 Methylprednisolone Sodium Succinate (Solu-MEDROL) 60 mg EVERY 6 HOURS IV 01/07/18 00:00 02/06/18 00:00 Nitroglycerin (Ntg) 0.4 mg Q5M X 3 DOSES PRN SL Prn Chest Pain 01/06/18 19:00 02/05/18 18:59 Ondansetron HCl (Zofran) 4 mg Q6H PRN IVP Nausea & Vomiting 01/06/18 19:00 02/05/18 18:59 Promethazine HCl/ Codeine (Phenergan with Codeine) 5 ml EVERY 6 HOURS PRN ORAL cough 01/06/18 19:00 02/05/18 18:59 Temazepam (Restoril) 15 mg HSPRN PRN ORAL Insomnia 01/06/18 19:00 01/13/18 18:59 Theophylline (Ramesh-Dur) 100 mg TWICE A DAY ORAL 01/07/18 09:00 02/06/18 08:59 Assessment/Plan Problem List: (1) Acute respiratory failure ICD Codes: J96.00 - Acute respiratory failure, unspecified whether with hypoxia or hypercapnia SNOMED: 69502104 (2) At high risk for aspiration ICD Codes: Z91.89 - Other specified personal risk factors, not elsewhere classified SNOMED: 641067664 (3) Sepsis ICD Codes: A41.9 - Sepsis, unspecified organism SNOMED: 27517617 Qualifiers: Qualified Codes: A41.9 - Sepsis, unspecified organism (4) COPD (chronic obstructive pulmonary disease) ICD Codes: J44.9 - Chronic obstructive pulmonary disease, unspecified SNOMED: 70348630 Qualifiers: Qualified Codes: J44.9 - Chronic obstructive pulmonary disease, unspecified (5) HTN (hypertension) ICD Codes: I10 - Essential (primary) hypertension SNOMED: 61751359 (6) Psychosis ICD Codes: F29 - Unspecified psychosis not due to a substance or known physiological condition SNOMED: 89556923 (7) Diabetes ICD Codes: E11.9 - Type 2 diabetes mellitus without complications SNOMED: 20676843 Assessment/Plan aspiration precaution check sputum IV abx swallow evaluation psychiatry to see sliding scale, social service evaluation. Maureen Perkins MD January 06, 2018 21:43
[2018-01-06] MEDS: Heparin 5000 units/ml inj SUBQ SCH (22:12)
[2018-01-07] VITALS: BP 135/68
[2018-01-07] MEDS: Solu-MEDROL 125mg Inj IV SCH ×5 (00:36→23:21)
[2018-01-07 04:42] VITALS: BP 122/74
[2018-01-07 05:39] VITALS: BP 147/76
[2018-01-07 08:00] VITALS: BP 156/66
[2018-01-07 08:46] LABS: HEMATOCRIT 30.6 % (37.0-47.0); HEMOGLOBIN 10.2 G/DL (12.0-16.0); MEAN CORPUSCULAR VOLUME 87 FL (80-99); PLATELET COUNT 292 K/UL (150-450); RED BLOOD COUNT 3.54 M/UL (4.20-5.40); RED CELL DISTRIBUTION WIDTH 14.6 % (11.6-14.8); WHITE BLOOD COUNT 11.7 K/UL (4.8-10.8)
[2018-01-07 08:58] LABS: ALANINE AMINOTRANSFERASE 26 U/L (12-78); ALBUMIN 2.6 G/DL (3.4-5.0); ALBUMIN/GLOBULIN RATIO 0.6 (1.0-2.7); ALKALINE PHOSPHATASE 76 U/L (46-116); ANION GAP 8 mmol/L (5-15); ASPARTATE AMINO TRANSFERASE 19 U/L (15-37); BILIRUBIN,TOTAL 0.3 MG/DL (0.2-1.0); BLOOD UREA NITROGEN 25 mg/dL (7-18); CALCIUM 8.5 MG/DL (8.5-10.1); CARBON DIOXIDE 27 MMOL/L (21-32); CHLORIDE 101 MMOL/L (98-107); CREATININE 1.1 MG/DL (0.55-1.30); POTASSIUM 4.4 MMOL/L (3.5-5.1); SODIUM 136 MMOL/L (136-145)
[2018-01-07] MEDS: Heparin 5000 units/ml inj SUBQ SCH ×2 (09:00→20:39)
[2018-01-07] MEDS ORDERED: Vitamin A&D Oint 2oz Tube TOPIC SCH (09:00)
[2018-01-07] MEDS: Theophylline ER 100mg ORAL SCH ×2 (09:26→17:44)
[2018-01-07] MEDS: HydrALAZINE 25mg tab ORAL SCH ×2 (09:27→17:45)
[2018-01-07] MEDS: Vitamin A&D Oint 2oz Tube TOPIC SCH ×2 (09:34→20:40)
--- NOTE | 2018-01-07 10:49 | Diagnostic Imaging Report ---
Indication: Dyspnea Comparison: 12/24/2017 A single view chest radiograph was obtained. Findings: Bones are moderately osteopenic. The heart is enlarged. Aorta is mildly ectatic. Exam limited by rotation. IMPRESSION: No obvious acute disease
--- NOTE | 2018-01-07 11:02 | Pulmonology Progress Note ---
Assessment/Plan Problems: (1) Acute respiratory failure (2) At high risk for aspiration (3) Sepsis (4) COPD (chronic obstructive pulmonary disease) (5) HTN (hypertension) (6) Psychosis (7) Diabetes Assessment/Plan respiratory treatment iv abx check sputum psych to see respiratory treatment social service consult pt is at high risk of aspiration with end stage dementia, she has psychosis as well. Putting a Gtube would be impossible. she is a good candidate for comfort and symptomatic care. Subjective ROS Limited/Unobtainable: Yes Interval Events: awake, confused Constitutional: Reports: no symptoms Allergies: Coded Allergies: No Known Allergies (Unverified , 07/31/16) Objective Last 24 Hour Vital Signs Date Time Temp Pulse Resp B/P (MAP) Pulse Ox O2 Delivery O2 Flow Rate FiO2 01/07/18 09:27 153/66 01/07/18 08:00 97.8 68 20 156/66 97 Room Air 97.8 01/07/18 07:59 89 20 Room Air 01/07/18 06:27 147/76 01/07/18 05:39 76 147/76 01/07/18 04:42 97.3 80 20 122/74 96 Room Air 97.3 01/07/18 04:00 71 01/07/18 00:00 96.8 84 20 135/68 95 Room Air 96.8 01/07/18 00:00 85 01/06/18 22:00 131/63 01/06/18 21:00 112 20 131/63 97 Room Air 108 01/06/18 20:42 101 01/06/18 20:10 97.8 112 23 134/23 95 Room Air 21 97.8 01/06/18 20:10 112 18 121/45 97 Room Air 01/06/18 19:11 97.8 116 23 134/23 95 Room Air 97.8 01/06/18 18:04 112 21 99 Room Air 21 01/06/18 17:36 21 01/06/18 17:33 100 16 100 Room Air 21 01/06/18 17:31 100 16 100 Room Air 21 01/06/18 17:05 21 01/06/18 17:05 95 16 100 Room Air 21 01/06/18 17:01 96 15 100 Room Air 21 01/06/18 16:49 96 27 93 Room Air 21 01/06/18 16:49 21 01/06/18 16:35 97.0 107 27 147/59 91 Room Air 97.0 01/06/18 16:35 110 24 Room Air 01/06/18 16:26 110 24 160/90 90 Non-Rebreather Intake and Output 01/06/18 01/07/18 19:00 07:00 Intake Total 0 ml Balance 0 ml Intake Oral 0 ml # Voids 2 # Bowel Movements 1 General Appearance: WD/WN HEENT: normocephalic, atraumatic Respiratory/Chest: chest wall non-tender, crackles/rales Breasts: no masses Cardiovascular: normal peripheral pulses, normal rate Abdomen: normal bowel sounds, soft, non tender Genitourinary: normal external genitalia Extremities: no clubbing 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, no motor/sensory deficits Lymphatic: no neck adenopathy Microbiology Date/Time Source Procedure Growth Status 01/06/18 17:56 Urine,Clean Catch Urine Culture - Preliminary Gram Negative Bacillus 1 Resulted Laboratory Tests 01/06/18 16:40: White Blood Count 13.1H, Red Blood Count 4.46, Hemoglobin 12.6, Hematocrit 38.5 , Mean Corpuscular Volume 86, Mean Corpuscular Hemoglobin 28.2, Mean Corpuscular Hemoglobin Concent 32.7, Red Cell Distribution Width 14.9H, Platelet Count 381, Mean Platelet Volume 5.4L, Neutrophils (%) (Auto) , Lymphocytes (%) (Auto) , Monocytes (%) (Auto) , Eosinophils (%) (Auto) , Basophils (%) (Auto) , Differential Total Cells Counted 100, Neutrophils % ( Manual) 91H, Lymphocytes % (Manual) 7L, Monocytes % (Manual) 2, Eosinophils % ( Manual) 0, Basophils % (Manual) 0, Band Neutrophils 0, Platelet Estimate Adequate, Platelet Morphology Normal, Red Blood Cell Morphology Normal, Sodium Level 136, Potassium Level 4.8, Chloride Level 96L, Carbon Dioxide Level 32, Anion Gap 9, Blood Urea Nitrogen 36H, Creatinine 1.4H, Estimat Glomerular Filtration Rate , Glucose Level 208H, Lactic Acid Level 2.30H, Calcium Level 9.5 , Total Bilirubin 0.3, Aspartate Amino Transf (AST/SGOT) 24, Alanine Aminotransferase (ALT/SGPT) 34, Alkaline Phosphatase 118H, Total Creatine Kinase 34, Creatine Kinase MB 0.9, Creatine Kinase MB Relative Index 2.6, Troponin I 0.000, Pro-B-Type Natriuretic Peptide 135H, Total Protein 8.4H, Albumin 3.2L, Globulin 5.2, Albumin/Globulin Ratio 0.6L 01/06/18 17:56: Lactic Acid Level 2.20, Urine Color Yellow, Urine Appearance Clear, Urine pH 6, Urine Specific [place] 1.020, Urine Protein Negative, Urine Glucose (UA) Negative, Urine Ketones Negative, Urine Occult Blood 2+H, Urine Nitrite Negative , Urine Bilirubin Negative, Urine Urobilinogen Normal, Urine Leukocyte Esterase 1+H, Urine RBC 5-10H, Urine WBC 5-10H, Urine Squamous Epithelial Cells Few, Urine Bacteria ManyH 01/07/18 08:15: White Blood Count 11.7H, Red Blood Count 3.54L, Hemoglobin 10.2L, Hematocrit 30.6L, Mean Corpuscular Volume 87, Mean Corpuscular Hemoglobin 28.7, Mean Corpuscular Hemoglobin Concent 33.1, Red Cell Distribution Width 14.6, Platelet Count 292, Mean Platelet Volume 5.8L, Neutrophils (%) (Auto) , Lymphocytes (%) ( Auto) , Monocytes (%) (Auto) , Eosinophils (%) (Auto) , Basophils (%) (Auto) , Differential Total Cells Counted 100, Neutrophils % (Manual) 94H, Lymphocytes % (Manual) 2L, Monocytes % (Manual) 1, Eosinophils % (Manual) 0, Basophils % ( Manual) 0, Band Neutrophils 3, Platelet Estimate Adequate, Platelet Morphology Normal, Sodium Level 136, Potassium Level 4.4, Chloride Level 101, Carbon Dioxide Level 27, Anion Gap 8, Blood Urea Nitrogen 25H, Creatinine 1.1, Estimat Glomerular Filtration Rate , Glucose Level 178H, Calcium Level 8.5, Total Bilirubin 0.3, Aspartate Amino Transf (AST/SGOT) 19, Alanine Aminotransferase ( ALT/SGPT) 26, Alkaline Phosphatase 76, Total Protein 6.8, Albumin 2.6L, Globulin 4.2, Albumin/Globulin Ratio 0.6L, Hypochromasia 1+ Current Medications Medications (Trade) Dose Ordered Sig/Janessa Route PRN Reason Start Time Stop Time Status Last Admin Dose Admin Acetaminophen (Tylenol) 650 mg Q4H PRN ORAL fever 01/06/18 19:00 02/05/18 18:59 01/07/18 00:54 Albuterol/ Ipratropium (Albuterol/ Ipratropium) 3 ml EVERY 4 HOURS PRN HHN dyspnea 01/06/18 19:00 01/11/18 18:59 Clonidine HCl (Catapres Tab) 0.1 mg EVERY 4 HOURS PRN ORAL sbp more than 160 01/06/18 19:00 02/05/18 18:59 Clonidine HCl (Catapres Tab) 0.1 mg EVERY 8 HOURS ORAL 01/06/18 22:00 02/05/18 21:59 01/07/18 06:27 Dextrose (Dextrose 50%) STAT PRN IV Hypoglycemia 01/06/18 19:00 02/05/18 18:59 Heparin Sodium (Porcine) (Heparin 5000 units/ml) 5,000 units EVERY 12 HOURS SUBQ 01/06/18 21:00 02/05/18 20:59 01/06/18 22:12 Hydralazine HCl (Apresoline) 25 mg BID ORAL 01/07/18 09:00 02/06/18 08:59 01/07/18 09:27 Levofloxacin 50 ml @ 50 mls/hr Q24H IVPB 01/07/18 17:00 01/14/18 16:59 Lorazepam (Ativan 2mg/ml 1ml) 0.5 mg Q4H PRN IV For Anxiety 01/06/18 19:00 01/13/18 18:59 Methylprednisolone Sodium Succinate (Solu-MEDROL) 60 mg EVERY 6 HOURS IV 01/07/18 00:00 02/06/18 00:00 01/07/18 06:26 Nitroglycerin (Ntg) 0.4 mg Q5M X 3 DOSES PRN SL Prn Chest Pain 01/06/18 19:00 02/05/18 18:59 Ondansetron HCl (Zofran) 4 mg Q6H PRN IVP Nausea & Vomiting 01/06/18 19:00 02/05/18 18:59 Promethazine HCl/ Codeine (Phenergan with Codeine) 5 ml EVERY 6 HOURS PRN ORAL cough 01/06/18 19:00 02/05/18 18:59 01/07/18 00:53 Temazepam (Restoril) 15 mg HSPRN PRN ORAL Insomnia 01/06/18 19:00 01/13/18 18:59 Theophylline (Ramesh-Dur) 100 mg TWICE A DAY ORAL 01/07/18 09:00 02/06/18 08:59 01/07/18 09:26 Vitamin A/Vitamin D (A & D Oint) 1 applic Q12HR TOPIC 01/07/18 09:00 02/06/18 08:59 01/07/18 09:34 Maureen Perkins MD January 07, 2018 11:02
--- NOTE | 2018-01-07 11:37 | Consultation ---
History of Present Illness General Date patient seen: January 07, 2018 Time patient seen: 10:00 Chief Complaint: Dyspnea/Respdistress Referring physician: camacho Reason for Consultation: CAD, HTN, SOB Present Illness HPI 87-year-old female with PMHx of end stage dementia, paranoia schizophrenia, COPD , HTN, coronary artery disease presenting with shortness of breathing concerning for COPD exacerbation versus aspiration. CXR clear. Allergies: Coded Allergies: No Known Allergies (Unverified , 07/31/16) Medication History Scheduled Ascorbic Acid* (Vitamin C*), 500 MG ORAL DAILY, (Reported) Atorvastatin Calcium* (Atorvastatin Calcium*), 20 MG ORAL BEDTIME, (Reported) Clonidine Hcl* (Catapres*), 0.1 MG ORAL EVERY 8 HOURS, (Reported) Cranberry Fruit Concentrate (Cranberry), 450 MG PO BID, (Reported) Docusate Sodium* (Docusate Sodium*), 100 MG ORAL DAILY, (Reported) Famotidine (Famotidine), 20 MG ORAL DAILY, (Reported) Folic Acid* (Folic Acid*), 1 MG ORAL DAILY, (Reported) Furosemide (Furosemide), 20 MG ORAL 2XW Furosemide* (Lasix*), 20 MG ORAL TWICE A WEEK, (Reported) Hydralazine Hcl* (Hydralazine Hcl*), 25 MG ORAL BID, (Reported) Ipratropium/Albuterol Sulfate (Iprat-Albut 0.5-3(2.5) Mg/3 Ml), 3 ML IH EVERY 4 HOURS, (Reported) Multivitamin With Minerals (Multivitamins With Minerals*), 1 TAB ORAL DAILY, ( Reported) Na Phos,M-B/Na Phos,Di-Ba* (Fleet Enema*), 133 ML RECTAL NEEDED, (Reported) Theophylline (Theodur*), 100 MG ORAL TWICE A DAY, (Reported) Tramadol Hcl* (Ultram*), 50 MG ORAL ONCE, (Reported) Vit B Comp/C/Fa/Iron/Vit E (Vitamin B Complex Tablet), 1 TAB PO DAILY, (Reported ) Scheduled PRN Acetaminophen* (Tylenol Extra Strength*), 500 MG ORAL Q6H PRN for For Pain, ( Reported) Acetaminophen* (Acetaminophen 325MG Tablet*), 650 MG ORAL Q6H PRN for For Pain, (Reported) Bisacodyl (Dulcolax), 10 MG RC for Constipation, (Reported) Hydromorphone Hcl (Hydromorphone Hcl), 2 MG PO EVERY 6 HOURS PRN for For Pain, ( Reported) Magnesium Hydroxide* (Milk Of Magnesia*), 30 ML ORAL DAILY PRN for Constipation, (Reported) Temazepam* (Restoril*), 15 MG ORAL BEDTIME PRN for Insomnia, (Reported) Patient History Limited by: medical condition History Provided By: Medical Record Healthcare decision maker Resuscitation status Full Code Advanced Directive on File Review of Systems Constitutional: Reports: no symptoms Eye: Reports: no symptoms ENT: Reports: no symptoms Respiratory: Reports: orthopnea, stridor, wheezing Gastrointestinal: Reports: no symptoms Genitourinary: Reports: no symptoms Musculoskeletal: Reports: no symptoms Skin: Reports: no symptoms Psychiatric: Reports: no symptoms Neurological: Reports: no symptoms Endocrine: Reports: no symptoms Hematologic/Lymphatic: Reports: no symptoms Physical Exam General Appearance: no apparent distress Lines, tubes and drains: peripheral HEENT: normocephalic Neck: non-tender Respiratory/Chest: expiratory wheezing Cardiovascular/Chest: normal peripheral pulses Abdomen: normal bowel sounds Extremities: normal range of motion Last 24 Hour Vital Signs Date Time Temp Pulse Resp B/P (MAP) Pulse Ox O2 Delivery O2 Flow Rate FiO2 01/07/18 09:27 153/66 01/07/18 08:00 97.8 68 20 156/66 97 Room Air 97.8 01/07/18 07:59 89 20 Room Air 01/07/18 06:27 147/76 01/07/18 05:39 76 147/76 01/07/18 04:42 97.3 80 20 122/74 96 Room Air 97.3 01/07/18 04:00 71 01/07/18 00:00 96.8 84 20 135/68 95 Room Air 96.8 01/07/18 00:00 85 01/06/18 22:00 131/63 01/06/18 21:00 112 20 131/63 97 Room Air 108 01/06/18 20:42 101 01/06/18 20:10 97.8 112 23 134/23 95 Room Air 21 97.8 01/06/18 20:10 112 18 121/45 97 Room Air 01/06/18 19:11 97.8 116 23 134/23 95 Room Air 97.8 01/06/18 18:04 112 21 99 Room Air 21 01/06/18 17:36 21 01/06/18 17:33 100 16 100 Room Air 21 01/06/18 17:31 100 16 100 Room Air 21 01/06/18 17:05 21 01/06/18 17:05 95 16 100 Room Air 21 01/06/18 17:01 96 15 100 Room Air 21 01/06/18 16:49 96 27 93 Room Air 21 01/06/18 16:49 21 01/06/18 16:35 97.0 107 27 147/59 91 Room Air 97.0 01/06/18 16:35 110 24 Room Air 01/06/18 16:26 110 24 160/90 90 Non-Rebreather Intake and Output 01/06/18 01/07/18 19:00 07:00 Intake Total 0 ml Balance 0 ml Intake Oral 0 ml # Voids 2 # Bowel Movements 1 Laboratory Tests Test 01/06/18 16:40 01/06/18 17:56 01/07/18 08:15 White Blood Count 13.1 K/UL (4.8-10.8) H 11.7 K/UL (4.8-10.8) H Red Blood Count 4.46 M/UL (4.20-5.40) 3.54 M/UL (4.20-5.40) L Hemoglobin 12.6 G/DL (12.0-16.0) 10.2 G/DL (12.0-16.0) L Hematocrit 38.5 % (37.0-47.0) 30.6 % (37.0-47.0) L Mean Corpuscular Volume 86 FL (80-99) 87 FL (80-99) Mean Corpuscular Hemoglobin 28.2 PG (27.0-31.0) 28.7 PG (27.0-31.0) Mean Corpuscular Hemoglobin Concent 32.7 G/DL (32.0-36.0) 33.1 G/DL (32.0-36.0) Red Cell Distribution Width 14.9 % (11.6-14.8) H 14.6 % (11.6-14.8) Platelet Count 381 K/UL (150-450) 292 K/UL (150-450) Mean Platelet Volume 5.4 FL (6.5-10.1) L 5.8 FL (6.5-10.1) L Neutrophils (%) (Auto) % (45.0-75.0) % (45.0-75.0) Lymphocytes (%) (Auto) % (20.0-45.0) % (20.0-45.0) Monocytes (%) (Auto) % (1.0-10.0) % (1.0-10.0) Eosinophils (%) (Auto) % (0.0-3.0) % (0.0-3.0) Basophils (%) (Auto) % (0.0-2.0) % (0.0-2.0) Differential Total Cells Counted 100 100 Neutrophils % (Manual) 91 % (45-75) H 94 % (45-75) H Lymphocytes % (Manual) 7 % (20-45) L 2 % (20-45) L Monocytes % (Manual) 2 % (1-10) 1 % (1-10) Eosinophils % (Manual) 0 % (0-3) 0 % (0-3) Basophils % (Manual) 0 % (0-2) 0 % (0-2) Band Neutrophils 0 % (0-8) 3 % (0-8) Platelet Estimate Adequate Adequate Platelet Morphology Normal Normal Red Blood Cell Morphology Normal Sodium Level 136 MMOL/L (136-145) 136 MMOL/L (136-145) Potassium Level 4.8 MMOL/L (3.5-5.1) 4.4 MMOL/L (3.5-5.1) Chloride Level 96 MMOL/L (98-107) L 101 MMOL/L (98-107) Carbon Dioxide Level 32 MMOL/L (21-32) 27 MMOL/L (21-32) Anion Gap 9 mmol/L (5-15) 8 mmol/L (5-15) Blood Urea Nitrogen 36 mg/dL (7-18) H 25 mg/dL (7-18) H Creatinine 1.4 MG/DL (0.55-1.30) H 1.1 MG/DL (0.55-1.30) Estimat Glomerular Filtration Rate mL/min (>60) mL/min (>60) Glucose Level 208 MG/DL (74-106) H 178 MG/DL (74-106) H Lactic Acid Level 2.30 mmol/L (0.66-2.22) H 2.20 mmol/L (0.66-2.22) Calcium Level 9.5 MG/DL (8.5-10.1) 8.5 MG/DL (8.5-10.1) Total Bilirubin 0.3 MG/DL (0.2-1.0) 0.3 MG/DL (0.2-1.0) Aspartate Amino Transf (AST/SGOT) 24 U/L (15-37) 19 U/L (15-37) Alanine Aminotransferase (ALT/SGPT) 34 U/L (12-78) 26 U/L (12-78) Alkaline Phosphatase 118 U/L (46-116) H 76 U/L (46-116) Total Creatine Kinase 34 U/L (26-308) Creatine Kinase MB 0.9 NG/ML (0.0-3.6) Creatine Kinase MB Relative Index 2.6 Troponin I 0.000 ng/mL (0.000-0.056) Pro-B-Type Natriuretic Peptide 135 pg/mL (0-125) H Total Protein 8.4 G/DL (6.4-8.2) H 6.8 G/DL (6.4-8.2) Albumin 3.2 G/DL (3.4-5.0) L 2.6 G/DL (3.4-5.0) L Globulin 5.2 g/dL 4.2 g/dL Albumin/Globulin Ratio 0.6 (1.0-2.7) L 0.6 (1.0-2.7) L Urine Color Yellow Urine Appearance Clear Urine pH 6 (4.5-8.0) Urine Specific [place] 1.020 (1.005-1.035) Urine Protein Negative (NEGATIVE) Urine Glucose (UA) Negative (NEGATIVE) Urine Ketones Negative (NEGATIVE) Urine Occult Blood 2+ (NEGATIVE) H Urine Nitrite Negative (NEGATIVE) Urine Bilirubin Negative (NEGATIVE) Urine Urobilinogen Normal MG/DL (0.0-1.0) Urine Leukocyte Esterase 1+ (NEGATIVE) H Urine RBC 5-10 /HPF (0 - 2) H Urine WBC 5-10 /HPF (0 - 2) H Urine Squamous Epithelial Cells Few /LPF (NONE/OCC) Urine Bacteria Many /HPF (NONE) H Hypochromasia 1+ Microbiology Date/Time Source Procedure Growth Status 01/06/18 17:56 Urine,Clean Catch Urine Culture - Preliminary Gram Negative Bacillus 1 Resulted Height (Feet): 5 Height (Inches): 0.00 Weight (Pounds): 130 Medications Current Medications Medications (Trade) Dose Ordered Sig/Janessa Route PRN Reason Start Time Stop Time Status Last Admin Dose Admin Acetaminophen (Tylenol) 650 mg Q4H PRN ORAL fever 01/06/18 19:00 02/05/18 18:59 01/07/18 00:54 Albuterol/ Ipratropium (Albuterol/ Ipratropium) 3 ml EVERY 4 HOURS PRN HHN dyspnea 01/06/18 19:00 01/11/18 18:59 Clonidine HCl (Catapres Tab) 0.1 mg EVERY 4 HOURS PRN ORAL sbp more than 160 01/06/18 19:00 02/05/18 18:59 Clonidine HCl (Catapres Tab) 0.1 mg EVERY 8 HOURS ORAL 01/06/18 22:00 02/05/18 21:59 01/07/18 06:27 Dextrose (Dextrose 50%) STAT PRN IV Hypoglycemia 01/06/18 19:00 02/05/18 18:59 Haloperidol Lactate 5 mg/ Dextrose 56 ml @ 224 mls/hr ONCE ONCE IVPB 01/07/18 11:30 01/07/18 11:44 UNV Heparin Sodium (Porcine) (Heparin 5000 units/ml) 5,000 units EVERY 12 HOURS SUBQ 01/06/18 21:00 02/05/18 20:59 01/06/18 22:12 Hydralazine HCl (Apresoline) 25 mg BID ORAL 01/07/18 09:00 02/06/18 08:59 01/07/18 09:27 Levofloxacin 50 ml @ 50 mls/hr Q24H IVPB 01/07/18 17:00 01/14/18 16:59 Methylprednisolone Sodium Succinate (Solu-MEDROL) 60 mg EVERY 6 HOURS IV 01/07/18 00:00 02/06/18 00:00 01/07/18 06:26 Nitroglycerin (Ntg) 0.4 mg Q5M X 3 DOSES PRN SL Prn Chest Pain 01/06/18 19:00 02/05/18 18:59 Ondansetron HCl (Zofran) 4 mg Q6H PRN IVP Nausea & Vomiting 01/06/18 19:00 02/05/18 18:59 Promethazine HCl/ Codeine (Phenergan with Codeine) 5 ml EVERY 6 HOURS PRN ORAL cough 01/06/18 19:00 02/05/18 18:59 01/07/18 00:53 Quetiapine Fumarate (SEROquel) 25 mg EVERY 6 HOURS PRN ORAL For Anxiety 01/07/18 11:30 02/06/18 11:29 UNV Temazepam (Restoril) 15 mg HSPRN PRN ORAL Insomnia 01/06/18 19:00 01/13/18 18:59 Theophylline (Ramesh-Dur) 100 mg TWICE A DAY ORAL 01/07/18 09:00 02/06/18 08:59 01/07/18 09:26 Vitamin A/Vitamin D (A & D Oint) 1 applic Q12HR TOPIC 01/07/18 09:00 02/06/18 08:59 01/07/18 09:34 Assessment/Plan Assessment/Plan Pulmonary toilet Steorids Breathing treatments BP control with clonidine/hydralazine No signs of heart failure or fluid overload to explain shortness of breath Monitor for aspiration/speech and swallow evaluation G tube for comfort care Supportive care consult Ashwin Marti M.D. January 07, 2018 11:37
[2018-01-07] MEDS ORDERED: Haloperidol 5mg/ml Inj IM PRN (12:00)
[2018-01-07] MEDS ORDERED: Haloperidol Lactate 5 MG in D5W 110 ML IVPB ONE (12:15)
[2018-01-07] MEDS ORDERED: Levofloxacin 250mg/D5W 50ml IVPB SCH (17:00)
--- NOTE | 2018-01-07 17:09 | Consultation ---
History of Present Illness General Date patient seen: January 06, 2018 Chief Complaint: Dyspnea/Respdistress Referring physician: camacho Reason for Consultation: CAD, HTN, SOB Present Illness HPI 87-year-old female with PMHx of dementia, schizophrenia, COPD, HTN, recurrent hospitalization, shelter resident presented to ED evaluation of shortness of breath. The pt is uncooperative and confused. the pt refuses care. the pt is unable to participate in eval due to cognitive impairment. the pt is pocketing food has poor po intake Allergies: Coded Allergies: No Known Allergies (Unverified , 07/31/16) Medication History Scheduled Ascorbic Acid* (Vitamin C*), 500 MG ORAL DAILY, (Reported) Atorvastatin Calcium* (Atorvastatin Calcium*), 20 MG ORAL BEDTIME, (Reported) Clonidine Hcl* (Catapres*), 0.1 MG ORAL EVERY 8 HOURS, (Reported) Cranberry Fruit Concentrate (Cranberry), 450 MG PO BID, (Reported) Docusate Sodium* (Docusate Sodium*), 100 MG ORAL DAILY, (Reported) Famotidine (Famotidine), 20 MG ORAL DAILY, (Reported) Folic Acid* (Folic Acid*), 1 MG ORAL DAILY, (Reported) Furosemide (Furosemide), 20 MG ORAL 2XW Furosemide* (Lasix*), 20 MG ORAL TWICE A WEEK, (Reported) Hydralazine Hcl* (Hydralazine Hcl*), 25 MG ORAL BID, (Reported) Ipratropium/Albuterol Sulfate (Iprat-Albut 0.5-3(2.5) Mg/3 Ml), 3 ML IH EVERY 4 HOURS, (Reported) Multivitamin With Minerals (Multivitamins With Minerals*), 1 TAB ORAL DAILY, ( Reported) Na Phos,M-B/Na Phos,Di-Ba* (Fleet Enema*), 133 ML RECTAL NEEDED, (Reported) Theophylline (Theodur*), 100 MG ORAL TWICE A DAY, (Reported) Tramadol Hcl* (Ultram*), 50 MG ORAL ONCE, (Reported) Vit B Comp/C/Fa/Iron/Vit E (Vitamin B Complex Tablet), 1 TAB PO DAILY, (Reported ) Scheduled PRN Acetaminophen* (Tylenol Extra Strength*), 500 MG ORAL Q6H PRN for For Pain, ( Reported) Acetaminophen* (Acetaminophen 325MG Tablet*), 650 MG ORAL Q6H PRN for For Pain, (Reported) Bisacodyl (Dulcolax), 10 MG RC for Constipation, (Reported) Hydromorphone Hcl (Hydromorphone Hcl), 2 MG PO EVERY 6 HOURS PRN for For Pain, ( Reported) Magnesium Hydroxide* (Milk Of Magnesia*), 30 ML ORAL DAILY PRN for Constipation, (Reported) Temazepam* (Restoril*), 15 MG ORAL BEDTIME PRN for Insomnia, (Reported) Patient History Limited by: medical condition History Provided By: Patient, Medical Record, PMD Healthcare decision maker Resuscitation status Full Code Advanced Directive on File Past Medical/Surgical History Past Medical/Surgical History: (1) Respiratory distress (2) Acute bronchiolitis (3) SOB (shortness of breath) (4) Cystitis (5) Gram-positive bacteremia (6) Acute non Q wave CO (myocardial infarction), initial episode of care (7) Sepsis (8) LUKASZ (acute kidney injury) (9) COPD (chronic obstructive pulmonary disease) (10) Diabetes (11) Psychosis (12) HTN (hypertension) (13) Acute respiratory failure (14) At high risk for aspiration Review of Systems Psychiatric: Reports: prior hx, anxiety, depressed feelings, emotional problems Physical Exam General Appearance: no apparent distress, alert, confused, agitated Last 24 Hour Vital Signs Date Time Temp Pulse Resp B/P (MAP) Pulse Ox O2 Delivery O2 Flow Rate FiO2 01/07/18 12:55 121/55 01/07/18 09:27 153/66 01/07/18 08:00 97.8 68 20 156/66 97 Room Air 97.8 01/07/18 07:59 89 20 Room Air 01/07/18 06:27 147/76 01/07/18 05:39 76 147/76 01/07/18 04:42 97.3 80 20 122/74 96 Room Air 97.3 01/07/18 04:00 71 01/07/18 00:00 96.8 84 20 135/68 95 Room Air 96.8 01/07/18 00:00 85 01/06/18 22:00 131/63 01/06/18 21:00 112 20 131/63 97 Room Air 108 01/06/18 20:42 101 01/06/18 20:10 97.8 112 23 134/23 95 Room Air 21 97.8 01/06/18 20:10 112 18 121/45 97 Room Air 01/06/18 19:11 97.8 116 23 134/23 95 Room Air 97.8 01/06/18 18:04 112 21 99 Room Air 21 01/06/18 17:36 21 01/06/18 17:33 100 16 100 Room Air 21 01/06/18 17:31 100 16 100 Room Air 21 01/06/18 17:05 21 01/06/18 17:05 95 16 100 Room Air 21 Intake and Output 01/06/18 01/07/18 19:00 07:00 Intake Total 0 ml Balance 0 ml Intake Oral 0 ml # Voids 2 # Bowel Movements 1 Laboratory Tests Test 01/06/18 17:56 01/07/18 08:15 Urine Color Yellow Urine Appearance Clear Urine pH 6 (4.5-8.0) Urine Specific [place] 1.020 (1.005-1.035) Urine Protein Negative (NEGATIVE) Urine Glucose (UA) Negative (NEGATIVE) Urine Ketones Negative (NEGATIVE) Urine Occult Blood 2+ (NEGATIVE) H Urine Nitrite Negative (NEGATIVE) Urine Bilirubin Negative (NEGATIVE) Urine Urobilinogen Normal MG/DL (0.0-1.0) Urine Leukocyte Esterase 1+ (NEGATIVE) H Urine RBC 5-10 /HPF (0 - 2) H Urine WBC 5-10 /HPF (0 - 2) H Urine Squamous Epithelial Cells Few /LPF (NONE/OCC) Urine Bacteria Many /HPF (NONE) H Lactic Acid Level 2.20 mmol/L (0.66-2.22) White Blood Count 11.7 K/UL (4.8-10.8) H Red Blood Count 3.54 M/UL (4.20-5.40) L Hemoglobin 10.2 G/DL (12.0-16.0) L Hematocrit 30.6 % (37.0-47.0) L Mean Corpuscular Volume 87 FL (80-99) Mean Corpuscular Hemoglobin 28.7 PG (27.0-31.0) Mean Corpuscular Hemoglobin Concent 33.1 G/DL (32.0-36.0) Red Cell Distribution Width 14.6 % (11.6-14.8) Platelet Count 292 K/UL (150-450) Mean Platelet Volume 5.8 FL (6.5-10.1) L Neutrophils (%) (Auto) % (45.0-75.0) Lymphocytes (%) (Auto) % (20.0-45.0) Monocytes (%) (Auto) % (1.0-10.0) Eosinophils (%) (Auto) % (0.0-3.0) Basophils (%) (Auto) % (0.0-2.0) Differential Total Cells Counted 100 Neutrophils % (Manual) 94 % (45-75) H Lymphocytes % (Manual) 2 % (20-45) L Monocytes % (Manual) 1 % (1-10) Eosinophils % (Manual) 0 % (0-3) Basophils % (Manual) 0 % (0-2) Band Neutrophils 3 % (0-8) Platelet Estimate Adequate Platelet Morphology Normal Hypochromasia 1+ Sodium Level 136 MMOL/L (136-145) Potassium Level 4.4 MMOL/L (3.5-5.1) Chloride Level 101 MMOL/L (98-107) Carbon Dioxide Level 27 MMOL/L (21-32) Anion Gap 8 mmol/L (5-15) Blood Urea Nitrogen 25 mg/dL (7-18) H Creatinine 1.1 MG/DL (0.55-1.30) Estimat Glomerular Filtration Rate mL/min (>60) Glucose Level 178 MG/DL (74-106) H Calcium Level 8.5 MG/DL (8.5-10.1) Total Bilirubin 0.3 MG/DL (0.2-1.0) Aspartate Amino Transf (AST/SGOT) 19 U/L (15-37) Alanine Aminotransferase (ALT/SGPT) 26 U/L (12-78) Alkaline Phosphatase 76 U/L (46-116) Total Protein 6.8 G/DL (6.4-8.2) Albumin 2.6 G/DL (3.4-5.0) L Globulin 4.2 g/dL Albumin/Globulin Ratio 0.6 (1.0-2.7) L Microbiology Date/Time Source Procedure Growth Status 01/06/18 17:56 Urine,Clean Catch Urine Culture - Preliminary Gram Negative Bacillus 1 Resulted Height (Feet): 5 Height (Inches): 0.00 Weight (Pounds): 130 Medications Current Medications Medications (Trade) Dose Ordered Sig/Janessa Route PRN Reason Start Time Stop Time Status Last Admin Dose Admin Acetaminophen (Tylenol) 650 mg Q4H PRN ORAL fever 01/06/18 19:00 02/05/18 18:59 01/07/18 00:54 Albuterol/ Ipratropium (Albuterol/ Ipratropium) 3 ml EVERY 4 HOURS PRN HHN dyspnea 01/06/18 19:00 01/11/18 18:59 Clonidine HCl (Catapres Tab) 0.1 mg EVERY 4 HOURS PRN ORAL sbp more than 160 01/06/18 19:00 02/05/18 18:59 Clonidine HCl (Catapres Tab) 0.1 mg EVERY 8 HOURS ORAL 01/06/18 22:00 02/05/18 21:59 01/07/18 12:55 Dextrose (Dextrose 50%) STAT PRN IV Hypoglycemia 01/06/18 19:00 02/05/18 18:59 Haloperidol Lactate (Haldol) 5 mg Q6H PRN IM Agitation 01/07/18 12:00 02/06/18 11:59 Heparin Sodium (Porcine) (Heparin 5000 units/ml) 5,000 units EVERY 12 HOURS SUBQ 01/06/18 21:00 02/05/18 20:59 01/06/18 22:12 Hydralazine HCl (Apresoline) 25 mg BID ORAL 01/07/18 09:00 02/06/18 08:59 01/07/18 09:27 Levofloxacin 50 ml @ 50 mls/hr Q24H IVPB 01/07/18 17:00 01/14/18 16:59 Methylprednisolone Sodium Succinate (Solu-MEDROL) 60 mg EVERY 6 HOURS IV 01/07/18 00:00 02/06/18 00:00 01/07/18 12:54 Nitroglycerin (Ntg) 0.4 mg Q5M X 3 DOSES PRN SL Prn Chest Pain 01/06/18 19:00 02/05/18 18:59 Ondansetron HCl (Zofran) 4 mg Q6H PRN IVP Nausea & Vomiting 01/06/18 19:00 02/05/18 18:59 Promethazine HCl/ Codeine (Phenergan with Codeine) 5 ml EVERY 6 HOURS PRN ORAL cough 01/06/18 19:00 02/05/18 18:59 01/07/18 00:53 Quetiapine Fumarate (SEROquel) 25 mg Q6H PRN ORAL For Anxiety 01/07/18 11:30 02/06/18 11:29 Temazepam (Restoril) 15 mg HSPRN PRN ORAL Insomnia 01/06/18 19:00 01/13/18 18:59 Theophylline (Ramesh-Dur) 100 mg TWICE A DAY ORAL 01/07/18 09:00 02/06/18 08:59 01/07/18 09:26 Vitamin A/Vitamin D (A & D Oint) 1 applic Q12HR TOPIC 01/07/18 09:00 02/06/18 08:59 01/07/18 09:34 Assessment/Plan Assessment/Plan Schizophrenia Dementia -seroquel prn -zyprexa 5mg qhs -haldol prn -the pt lacks capacity to make decisions. -the pt may not make decisions. Bismark Jung M.D. January 07, 2018 17:09
[2018-01-07 19:58] VITALS: BP 120/53
--- NOTE | 2018-01-07 20:17 | Consultation ---
DATE OF CONSULTATION: 01/07/2018 HEMATOLOGY AND ONCOLOGY CONSULTATION CONSULTING PHYSICIAN: Elizabeth Silver M.D. REFERRING PHYSICIAN: Maureen Perkins M.D. REASON FOR CONSULTATION: Anemia. HISTORY OF PRESENT ILLNESS: The patient is an unfortunate, 87-year-old female. The patient presented to the hospital with significant shortness of breath. Unfortunately, the patient is extremely poor historian, unable to communicate whatsoever with myself as well as nursing staff of different languages. The patient apparently has had some level of respiratory distress as well. This morning, I have had a discussion with the patient's nursing staff and the patient did have significant shortness of breath. The patient adamantly has refused her medications. The patient has been trying to pull out her IV line. Of note, the patient has had a history of congestive heart failure, on Lasix therapy. The patient has been noted to be anemic, hemoglobin of 10, etiology unclear. The patient apparently does have a history of multiple pulmonary issues, has been on theophylline. The patient does have chronic pain, on tramadol. She has been chronic respiratory treatment, ipratropium as well as albuterol. She has been treated with hydralazine for hypertension, and has been on Lasix as well. The patient does have a history of hyperlipidemia as well. PAST MEDICAL HISTORY: 1. Questionable dementia. 2. Poor communication. 3. Anxiety. 4. Hyperlipidemia. 5. Hypertension. 6. Apparent chronic urinary tract infections based on her treatment with cranberry pills. 7. Reported history of CHF. 8. Hypertension. 9. Respiratory issues, COPD versus asthma. 10. Chronic pain syndrome. PAST SURGICAL HISTORY: Unable to obtain from the patient. FAMILY HISTORY: Unable to obtain from the patient. SOCIAL HISTORY: The patient apparently resides in a nursing facility from what I can gather from the chart and discussion with the nurse. Unable to obtain family contact as this point in time. Case has been discussed at length with nursing staff. REVIEW OF SYSTEMS: Unable to obtain from the patient. The patient does not communicate whatsoever. MEDICATIONS: Per CS Link. ALLERGIES: Per CS Link. PHYSICAL EXAMINATION: VITAL SIGNS: The patient has a temperature of 98 degrees, pulse of 110, breathing at 20, pulse ox 95%, and blood pressure of 135/45. HEAD AND NECK: Sclerae anicteric. CHEST: Rhonchi at the bases. CARDIAC: Tachycardic. The patient is very anxious. ABDOMEN: Soft, nontender, and nondistended. No palpable masses. EXTREMITIES: Some edema, trace, more on the right than the left. NEUROLOGIC: The patient seems to be able to move all extremities. However, she is extremely agitated. Does not communicate whatsoever. She is awake. BREASTS: Examination done with 2 of the female hospital staff in the room. No palpable masses noted. LYMPH NODES: There is no palpable cervical, supraclavicular, axillary, or groin adenopathy. LABORATORY AND DIAGNOSTIC DATA: Laboratory as well as investigations have been noted. The patient has an elevated white count of 13.1 on admission, currently 11.7. Hemoglobin dropped from 12.6 down to 10.2 today. Platelet count 292. MPV is low at 5.8. The patient is noted to have elevated neutrophil count of 94%. Sodium of 136, creatinine of 1.1, BUN of 25 with glucose of 178, liver enzymes within normal limits. Albumin is at 2.6. ASSESSMENT AND PLAN: 1. Anemia, etiology unclear. I have had extensive discussion with Dr. Perkins. I have had a discussion with nursing staff. In light of the patient's significant alteration in mental status, refusal for any other treatment, age of 87 and possible dementia, I would try to hold off on very extensive evaluation. If the patient's anemia worsens and requiring further evaluation, my recommendation would be for stool occult blood testing to be done. Iron, ferritin, B12, folate, serum protein electrophoresis, serum immunoelectrophoresis, urine protein electrophoresis, urine immunoelectrophoresis, reticulocyte count, LDH can be evaluated. The patient's creatinine previously as of yesterday was 1.4, creatinine of 1.1. The patient could have potential anemia of chronic disease, however, other etiology cannot be ruled out. However, at this point in time, in light of the patient's mental status issues, I will defer all of these arrangements to primary care physician. If need be, this can be done at a later date. 2. Lower extremity edema, trace somewhat, more on the right than the left. Duplex will be done, especially in light of the patient to be tachycardic and shortness of breath. The patient has refused all of her medications. 3. Shortness of breath. The patient does have a DVT. Consideration for evaluation for pulmonary embolus needs to be made. 4. Altered mental status, questionable etiology. Unable to obtain any history from patient. If this is acute, further neurologic evaluation needs to be done. If it is chronic, I will defer this management to primary care physician. 5. Malnutrition with albumin of 2.6. Consideration for a calorie count can be made if necessary. 6. Code status needs to be addressed. Elizabeth Silver M.D. DR: KASIA JOB#: [id number] CC:
[2018-01-08] VITALS: BP 127/54
[2018-01-08 05:59] VITALS: BP 113/37
[2018-01-08] MEDS: Solu-MEDROL 125mg Inj IV SCH ×4 (06:59→23:42)
[2018-01-08 08:00] VITALS: BP 141/59
[2018-01-08] MEDS: Heparin 5000 units/ml inj SUBQ SCH ×2 (10:30→21:19)
[2018-01-08] MEDS: HydrALAZINE 25mg tab ORAL SCH ×2 (10:31→17:06)
[2018-01-08] MEDS: Theophylline ER 100mg ORAL SCH ×2 (10:31→17:05)
--- NOTE | 2018-01-08 11:25 | Pulmonology Progress Note ---
Assessment/Plan Problems: (1) Acute respiratory failure (2) At high risk for aspiration (3) Sepsis (4) COPD (chronic obstructive pulmonary disease) (5) HTN (hypertension) (6) Psychosis (7) Diabetes Assessment/Plan improving respiratory treatment iv abx check sputum psych to see respiratory treatment social service consult reviewed, DOPA is nowhere to be found pt is at high risk of aspiration with end stage dementia, she has psychosis as well. Putting a Gtube would be impossible. she is a good candidate for comfort and symptomatic care. Subjective ROS Limited/Unobtainable: No Constitutional: Reports: no symptoms HEENT: Repors: no symptoms Respiratory: Reports: no symptoms Allergies: Coded Allergies: No Known Allergies (Unverified , 07/31/16) Objective Last 24 Hour Vital Signs Date Time Temp Pulse Resp B/P (MAP) Pulse Ox O2 Delivery O2 Flow Rate FiO2 01/08/18 10:31 141/62 01/08/18 07:56 78 16 Room Air 01/08/18 06:00 113/37 01/08/18 05:59 97.0 60 20 113/37 95 Room Air 97.0 01/08/18 04:00 01/08/18 04:00 56 01/08/18 00:00 66 01/08/18 00:00 97.0 60 20 127/54 94 Room Air 97.0 01/07/18 20:40 120/53 01/07/18 20:03 82 18 Room Air 01/07/18 20:00 83 01/07/18 19:58 97.9 80 20 120/53 94 Room Air 97.9 01/07/18 17:45 105/61 01/07/18 17:25 68 20 100 Nasal Cannula 1.0 24 01/07/18 17:20 69 20 Room Air 21 01/07/18 17:18 21 01/07/18 17:18 79 20 98 Room Air 21 01/07/18 16:00 69 01/07/18 12:55 121/55 01/07/18 12:00 68 Intake and Output 01/07/18 01/08/18 19:00 07:00 Intake Total 750 ml Balance 750 ml Intake Oral 700 ml IV Total 50 ml # Voids 6 General Appearance: WD/WN HEENT: normocephalic, atraumatic, anicteric Respiratory/Chest: chest wall non-tender, lungs clear Breasts: no masses Cardiovascular: normal peripheral pulses Abdomen: normal bowel sounds, soft, non tender Genitourinary: normal external genitalia Skin: no lesions 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 Complete 01/06/18 17:56 Urine,Clean Catch Urine Culture - Final Escherichia Coli - Esbl Complete 01/06/18 17:40 Rectum VRE Culture - Final NO VANCOMYCIN RESISTANT ENTEROCOCCUS ... Complete Current Medications Medications (Trade) Dose Ordered Sig/Janessa Route PRN Reason Start Time Stop Time Status Last Admin Dose Admin Acetaminophen (Tylenol) 650 mg Q4H PRN ORAL fever 01/06/18 19:00 02/05/18 18:59 01/08/18 10:52 Albuterol/ Ipratropium (Albuterol/ Ipratropium) 3 ml EVERY 4 HOURS PRN HHN dyspnea 01/06/18 19:00 01/11/18 18:59 01/07/18 17:18 Clonidine HCl (Catapres Tab) 0.1 mg EVERY 4 HOURS PRN ORAL sbp more than 160 01/06/18 19:00 02/05/18 18:59 Clonidine HCl (Catapres Tab) 0.1 mg EVERY 8 HOURS ORAL 01/06/18 22:00 02/05/18 21:59 01/07/18 20:40 Dextrose (Dextrose 50%) STAT PRN IV Hypoglycemia 01/06/18 19:00 02/05/18 18:59 Haloperidol Lactate (Haldol) 5 mg Q6H PRN IM Agitation 01/07/18 12:00 02/06/18 11:59 01/08/18 10:26 Heparin Sodium (Porcine) (Heparin 5000 units/ml) 5,000 units EVERY 12 HOURS SUBQ 01/06/18 21:00 02/05/18 20:59 01/08/18 10:30 Hydralazine HCl (Apresoline) 25 mg BID ORAL 01/07/18 09:00 6/30/18 08:59 01/08/18 10:31 Levofloxacin 50 ml @ 50 mls/hr Q24H IVPB 01/07/18 17:00 01/14/18 16:59 01/07/18 17:44 Methylprednisolone Sodium Succinate (Solu-MEDROL) 60 mg EVERY 6 HOURS IV 01/07/18 00:00 02/06/18 00:00 01/08/18 06:59 Nitroglycerin (Ntg) 0.4 mg Q5M X 3 DOSES PRN SL Prn Chest Pain 01/06/18 19:00 02/05/18 18:59 Olanzapine (ZyPREXA) 5 mg BEDTIME ORAL 01/07/18 21:00 02/06/18 20:59 01/07/18 20:38 Ondansetron HCl (Zofran) 4 mg Q6H PRN IVP Nausea & Vomiting 01/06/18 19:00 02/05/18 18:59 Promethazine HCl/ Codeine (Phenergan with Codeine) 5 ml EVERY 6 HOURS PRN ORAL cough 01/06/18 19:00 02/05/18 18:59 01/07/18 00:53 Quetiapine Fumarate (SEROquel) 25 mg Q6H PRN ORAL For Anxiety 01/07/18 11:30 02/06/18 11:29 01/08/18 10:30 Temazepam (Restoril) 15 mg HSPRN PRN ORAL Insomnia 01/06/18 19:00 01/13/18 18:59 Theophylline (Ramesh-Dur) 100 mg TWICE A DAY ORAL 01/07/18 09:00 02/06/18 08:59 01/08/18 10:31 Vitamin A/Vitamin D (A & D Oint) 1 applic Q12HR TOPIC 01/07/18 09:00 02/06/18 08:59 01/07/18 20:40 Maureen Perkins MD Jan 08, 2018 11:25
[2018-01-08 12:00] VITALS: BP 142/62
[2018-01-08] MEDS: Vitamin A&D Oint 2oz Tube TOPIC SCH ×2 (12:02→21:18)
--- NOTE | 2018-01-08 12:11 | General Progress Note ---
Assessment/Plan Assessment/Plan Schizophrenia Dementia -seroquel prn -zyprexa 5mg qhs -haldol prn -the pt lacks capacity to make decisions. -the pt may not make decisions. Subjective Date patient seen: Jan 08, 2018 Neurologic/Psychiatric: Reports: anxiety, depressed Allergies: Coded Allergies: No Known Allergies (Unverified , 07/31/16) Objective Last 24 Hour Vital Signs Date Time Temp Pulse Resp B/P (MAP) Pulse Ox O2 Delivery O2 Flow Rate FiO2 01/08/18 10:31 141/62 01/08/18 07:56 78 16 Room Air 01/08/18 06:00 113/37 01/08/18 05:59 97.0 60 20 113/37 95 Room Air 97.0 01/08/18 04:00 01/08/18 04:00 56 01/08/18 00:00 66 01/08/18 00:00 97.0 60 20 127/54 94 Room Air 97.0 01/07/18 20:40 120/53 01/07/18 20:03 82 18 Room Air 01/07/18 20:00 83 01/07/18 19:58 97.9 80 20 120/53 94 Room Air 97.9 01/07/18 17:45 105/61 01/07/18 17:25 68 20 100 Nasal Cannula 1.0 24 01/07/18 17:20 69 20 Room Air 21 01/07/18 17:18 21 01/07/18 17:18 79 20 98 Room Air 21 01/07/18 16:00 69 01/07/18 12:55 121/55 Intake and Output 01/07/18 01/08/18 19:00 07:00 Intake Total 750 ml Balance 750 ml Intake Oral 700 ml IV Total 50 ml # Voids 6 Height (Feet): 5 Height (Inches): 0.00 Weight (Pounds): 130 General Appearance: no apparent distress, confused, agitated Bismark Jung M.D. Jan 08, 2018 12:11
--- NOTE | 2018-01-08 14:15 | Cardiology Progress Note ---
Assessment/Plan Assessment/Plan Pulmonary toilet Steorids Breathing treatments BP control with clonidine/hydralazine No signs of heart failure or fluid overload to explain shortness of breath Monitor for aspiration/speech and swallow evaluation G tube for comfort care Supportive care consult Subjective ROS Limited/Unobtainable: Yes Cardiovascular: Reports: no symptoms Respiratory: Reports: no symptoms Gastrointestinal/Abdominal: Reports: no symptoms Genitourinary: Reports: no symptoms Subjective No acute events, patient refusing medications Objective Last 24 Hour Vital Signs Date Time Temp Pulse Resp B/P (MAP) Pulse Ox O2 Delivery O2 Flow Rate FiO2 01/08/18 12:00 63 01/08/18 12:00 96.9 68 18 142/62 98 Room Air 96.9 01/08/18 10:31 141/62 01/08/18 08:00 88 01/08/18 08:00 96.4 85 18 141/59 92 Room Air 96.4 01/08/18 07:56 78 16 Room Air 01/08/18 06:00 113/37 01/08/18 05:59 97.0 60 20 113/37 95 Room Air 97.0 01/08/18 04:00 01/08/18 04:00 56 01/08/18 00:00 66 01/08/18 00:00 97.0 60 20 127/54 94 Room Air 97.0 01/07/18 20:40 120/53 01/07/18 20:03 82 18 Room Air 01/07/18 20:00 83 01/07/18 19:58 97.9 80 20 120/53 94 Room Air 97.9 01/07/18 17:45 105/61 01/07/18 17:25 68 20 100 Nasal Cannula 1.0 24 01/07/18 17:20 69 20 Room Air 21 01/07/18 17:18 21 01/07/18 17:18 79 20 98 Room Air 21 01/07/18 16:00 69 General Appearance: no apparent distress EENT: PERRL/EOMI Neck: non-tender Cardiovascular: normal peripheral pulses Respiratory/Chest: chest wall non-tender Abdomen: normal bowel sounds Extremities: normal range of motion Intake and Output 01/07/18 01/08/18 19:00 07:00 Intake Total 750 ml Balance 750 ml Intake Oral 700 ml IV Total 50 ml # Voids 6 Microbiology Date/Time Source Procedure Growth Status 01/06/18 16:45 Blood Blood Culture - Preliminary NO GROWTH AFTER 24 HOURS Resulted 01/06/18 16:40 Blood Blood Culture - Preliminary NO GROWTH AFTER 24 HOURS Resulted 01/06/18 17:40 Nasal Nares MRSA Culture - Final NO METHICILLIN RESISTANT STAPH AUREUS... Complete 01/06/18 17:56 Urine,Clean Catch Urine Culture - Final Escherichia Coli - Esbl Complete 01/06/18 17:40 Rectum VRE Culture - Final NO VANCOMYCIN RESISTANT ENTEROCOCCUS ... Complete Ashwin Marti M.D. Jan 08, 2018 14:15
[2018-01-08 16:00] VITALS: BP 161/58
[2018-01-08] MEDS ORDERED: Meropenem 500 MG in NS 110 ML IVPB SCH (16:00)
[2018-01-08] MEDS ORDERED: Nitroglycerin Subl 0.4mg tab SL PRN (18:45)
[2018-01-08] MEDS ORDERED: Promethazine/Codeine 5ml UD ORAL PRN (19:12)
[2018-01-08] MEDS: Haloperidol 5mg/ml Inj IM PRN (19:40)
[2018-01-08 20:00] VITALS: BP 145/63
[2018-01-09] VITALS: BP 143/61
[2018-01-09] MEDS: Meropenem 500 MG in NS 110 ML IVPB SCH ×2 (03:57→19:01)
[2018-01-09 04:00] VITALS: BP 157/64
[2018-01-09] MEDS: Solu-MEDROL 125mg Inj IV SCH ×3 (06:22→19:00)
[2018-01-09 08:00] VITALS: BP 139/50
[2018-01-09 08:45] LABS: HEMATOCRIT 33.7 % (37.0-47.0); HEMOGLOBIN 10.9 G/DL (12.0-16.0); MEAN CORPUSCULAR VOLUME 87 FL (80-99); PLATELET COUNT 284 K/UL (150-450); RED BLOOD COUNT 3.88 M/UL (4.20-5.40); RED CELL DISTRIBUTION WIDTH 14.6 % (11.6-14.8); WHITE BLOOD COUNT 8.4 K/UL (4.8-10.8)
[2018-01-09] MEDS: Theophylline ER 100mg ORAL SCH ×2 (09:14→20:32)
[2018-01-09 09:15] LABS: ALANINE AMINOTRANSFERASE 24 U/L (12-78); ALBUMIN 2.6 G/DL (3.4-5.0); ALBUMIN/GLOBULIN RATIO 0.6 (1.0-2.7); ALKALINE PHOSPHATASE 70 U/L (46-116); ANION GAP 7 mmol/L (5-15); BILIRUBIN,TOTAL 0.4 MG/DL (0.2-1.0); BLOOD UREA NITROGEN 27 mg/dL (7-18); CALCIUM 8.7 MG/DL (8.5-10.1); CARBON DIOXIDE 29 MMOL/L (21-32); CHLORIDE 102 MMOL/L (98-107); CREATININE 0.9 MG/DL (0.55-1.30); SODIUM 138 MMOL/L (136-145)
[2018-01-09] MEDS: HydrALAZINE 25mg tab ORAL SCH ×2 (09:15→20:32)
[2018-01-09] MEDS: Heparin 5000 units/ml inj SUBQ SCH ×2 (09:16→20:33)
[2018-01-09] MEDS: Vitamin A&D Oint 2oz Tube TOPIC SCH ×2 (09:19→20:33)
[2018-01-09 09:30] LABS: ASPARTATE AMINO TRANSFERASE 16 U/L (15-37)
--- NOTE | 2018-01-09 11:37 | Pulmonology Progress Note ---
Assessment/Plan Problems: (1) Acute respiratory failure (2) At high risk for aspiration (3) Sepsis (4) COPD (chronic obstructive pulmonary disease) (5) HTN (hypertension) (6) Psychosis (7) Diabetes Assessment/Plan wbc normal eating better behavior better improving respiratory treatment iv abx check sputum psych to see respiratory treatment social service consult reviewed, DOPA is nowhere to be found pt is at high risk of aspiration with end stage dementia, she has psychosis as well. Putting a Gtube would be impossible. she is a good candidate for comfort and symptomatic care. Subjective ROS Limited/Unobtainable: No Constitutional: Reports: no symptoms HEENT: Repors: no symptoms Allergies: Coded Allergies: No Known Allergies (Unverified , 07/31/16) Objective Last 24 Hour Vital Signs Date Time Temp Pulse Resp B/P (MAP) Pulse Ox O2 Delivery O2 Flow Rate FiO2 01/09/18 09:15 139/50 01/09/18 08:00 97.3 87 18 139/50 97 Room Air 97.3 01/09/18 06:22 157/64 01/09/18 04:00 97.3 62 20 157/64 93 Room Air 97.3 01/09/18 00:00 98.1 65 18 143/61 95 Room Air 98.1 01/08/18 21:18 142/62 01/08/18 20:00 97.2 83 18 145/63 96 Room Air 97.2 01/08/18 17:06 142/62 01/08/18 16:00 96.4 62 18 161/58 99 Room Air 96.4 01/08/18 14:43 142/62 01/08/18 12:00 63 01/08/18 12:00 96.9 68 18 142/62 98 Room Air 96.9 Intake and Output 01/08/18 01/09/18 19:00 07:00 Intake Total 675 ml 110 ml Balance 675 ml 110 ml Intake Oral 675 ml IV Total 110 ml # Voids 3 2 # Bowel Movements 2 General Appearance: WD/WN HEENT: normocephalic, anicteric Respiratory/Chest: chest wall non-tender, lungs clear Cardiovascular: normal rate Abdomen: normal bowel sounds, soft, non tender Genitourinary: normal external genitalia Skin: no rash Microbiology Date/Time Source Procedure Growth Status 01/06/18 16:45 Blood Blood Culture - Preliminary NO GROWTH AFTER 48 HOURS Resulted 01/06/18 16:40 Blood Blood Culture - Preliminary NO GROWTH AFTER 48 HOURS Resulted 01/06/18 17:40 Nasal Nares MRSA Culture - Final NO METHICILLIN RESISTANT STAPH AUREUS... Complete 01/06/18 17:56 Urine,Clean Catch Urine Culture - Final Escherichia Coli - Esbl Complete 01/06/18 17:40 Rectum VRE Culture - Final NO VANCOMYCIN RESISTANT ENTEROCOCCUS ... Complete Laboratory Tests 01/09/18 06:50: White Blood Count 8.4, Red Blood Count 3.88L, Hemoglobin 10.9L, Hematocrit 33.7L , Mean Corpuscular Volume 87, Mean Corpuscular Hemoglobin 28.1, Mean Corpuscular Hemoglobin Concent 32.4, Red Cell Distribution Width 14.6, Platelet Count 284, Mean Platelet Volume 5.7L, Neutrophils (%) (Auto) , Lymphocytes (%) ( Auto) , Monocytes (%) (Auto) , Eosinophils (%) (Auto) , Basophils (%) (Auto) , Differential Total Cells Counted 100, Neutrophils % (Manual) 95H, Lymphocytes % (Manual) 4L, Monocytes % (Manual) 1, Eosinophils % (Manual) 0, Basophils % ( Manual) 0, Band Neutrophils 0, Platelet Estimate Adequate, Platelet Morphology Normal, Anisocytosis 1+, Sodium Level 138, Potassium Level 4.0, Chloride Level 102, Carbon Dioxide Level 29, Anion Gap 7, Blood Urea Nitrogen 27H, Creatinine 0.9, Estimat Glomerular Filtration Rate , Glucose Level 150H, Calcium Level 8.7 , Phosphorus Level 3.0, Magnesium Level 2.1, Total Bilirubin 0.4, Aspartate Amino Transf (AST/SGOT) 16, Alanine Aminotransferase (ALT/SGPT) 24, Alkaline Phosphatase 70, Total Protein 6.8, Albumin 2.6L, Globulin 4.2, Albumin/Globulin Ratio 0.6L Current Medications Medications (Trade) Dose Ordered Sig/Janessa Route PRN Reason Start Time Stop Time Status Last Admin Dose Admin Acetaminophen (Tylenol) 650 mg Q4H PRN ORAL fever 01/08/18 19:00 02/05/18 18:59 Albuterol/ Ipratropium (Albuterol/ Ipratropium) 3 ml EVERY 4 HOURS PRN HHN dyspnea 01/08/18 19:10 01/11/18 19:09 Clonidine HCl (Catapres Tab) 0.1 mg EVERY 4 HOURS PRN ORAL sbp more than 160 01/08/18 19:09 02/05/18 19:08 Clonidine HCl (Catapres Tab) 0.1 mg EVERY 8 HOURS ORAL 01/08/18 22:00 02/05/18 21:59 01/09/18 06:22 Dextrose (Dextrose 50%) 50 ml STAT PRN IV BS less than 60mg/dl 01/08/18 19:00 02/05/18 18:59 Haloperidol Lactate (Haldol) 5 mg Q6H PRN IM Agitation 01/08/18 19:10 02/07/18 19:09 01/08/18 19:40 Heparin Sodium (Porcine) (Heparin 5000 units/ml) 5,000 units EVERY 12 HOURS SUBQ 01/08/18 21:00 02/05/18 20:59 01/09/18 09:16 Hydralazine HCl (Apresoline) 25 mg Q12HR ORAL 01/09/18 09:00 02/08/18 08:59 01/09/18 09:15 Meropenem 500 mg/ Sodium Chloride 110 ml @ 220 mls/hr Q12H IVPB 01/09/18 04:00 01/13/18 23:59 01/09/18 03:57 Methylprednisolone Sodium Succinate (Solu-MEDROL) 60 mg EVERY 6 HOURS IV 01/09/18 00:00 02/06/18 00:00 01/09/18 06:22 Nitroglycerin (Ntg) 0.4 mg Q5M X 3 DOSES PRN SL Prn Chest Pain 01/08/18 18:45 02/05/18 18:59 Olanzapine (ZyPREXA) 5 mg BEDTIME ORAL 01/08/18 21:00 02/06/18 20:59 01/08/18 21:18 Ondansetron HCl (Zofran) 4 mg Q6H PRN IVP Nausea & Vomiting 01/08/18 19:00 02/05/18 18:59 Promethazine HCl/ Codeine (Phenergan with Codeine) 5 ml EVERY 6 HOURS PRN ORAL cough 01/08/18 19:12 02/07/18 19:11 Quetiapine Fumarate (SEROquel) 25 mg Q6H PRN ORAL For Anxiety 01/08/18 19:12 02/06/18 19:11 01/09/18 09:18 Temazepam (Restoril) 15 mg HSPRN PRN ORAL Insomnia 01/08/18 19:00 01/13/18 18:59 Theophylline (Ramesh-Dur) 100 mg Q12HR ORAL 01/09/18 09:00 02/08/18 08:59 01/09/18 09:14 Vitamin A/Vitamin D (A & D Oint) 1 applic Q12HR TOPIC 01/08/18 21:00 02/06/18 08:59 01/09/18 09:19 Maureen Perkins MD Jan 09, 2018 11:37
[2018-01-09 12:00] VITALS: BP 133/66
[2018-01-09] MEDS: Albuterol/Ipratropium 3ml neb HHN PRN (13:07)
[2018-01-09] MEDS ORDERED: Tubing IV Secondary IV ONE (15:27)
[2018-01-09] MEDS ORDERED: NS 275ml ONE (15:27)
[2018-01-09 16:00] VITALS: BP 145/68
--- NOTE | 2018-01-09 16:55 | Cardiology Progress Note ---
Assessment/Plan Assessment/Plan Pulmonary toilet Steroids Breathing treatments BP control with clonidine/hydralazine No signs of heart failure or fluid overload to explain shortness of breath Monitor for aspiration/speech and swallow evaluation G tube for comfort care Supportive care consult Dispo planning Subjective Cardiovascular: Reports: no symptoms Respiratory: Reports: no symptoms Gastrointestinal/Abdominal: Reports: no symptoms Genitourinary: Reports: no symptoms Subjective No acute events, Awake and alert, tolerating PO Objective Last 24 Hour Vital Signs Date Time Temp Pulse Resp B/P (MAP) Pulse Ox O2 Delivery O2 Flow Rate FiO2 01/09/18 13:09 75 20 Nasal Cannula 2.0 28 01/09/18 13:08 73 20 100 Nasal Cannula 2.0 28 01/09/18 12:57 75 20 98 Nasal Cannula 2.0 28 01/09/18 12:57 21 01/09/18 12:00 97.5 93 20 133/66 95 Nasal Cannula 2.0 97.5 01/09/18 09:15 139/50 01/09/18 08:00 97.3 87 18 139/50 97 Room Air 97.3 01/09/18 06:22 157/64 01/09/18 04:00 97.3 62 20 157/64 93 Room Air 97.3 01/09/18 00:00 98.1 65 18 143/61 95 Room Air 98.1 01/08/18 21:18 142/62 01/08/18 20:00 97.2 83 18 145/63 96 Room Air 97.2 01/08/18 17:06 142/62 General Appearance: alert EENT: PERRL/EOMI Neck: non-tender Cardiovascular: normal peripheral pulses Respiratory/Chest: chest wall non-tender Abdomen: normal bowel sounds Extremities: normal range of motion 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: director meetings II-XII grossly normal Intake and Output 01/08/18 01/09/18 19:00 07:00 Intake Total 675 ml 110 ml Balance 675 ml 110 ml Intake Oral 675 ml IV Total 110 ml # Voids 3 2 # Bowel Movements 2 Laboratory Tests Test 01/09/18 06:50 White Blood Count 8.4 K/UL (4.8-10.8) Red Blood Count 3.88 M/UL (4.20-5.40) L Hemoglobin 10.9 G/DL (12.0-16.0) L Hematocrit 33.7 % (37.0-47.0) L Mean Corpuscular Volume 87 FL (80-99) Mean Corpuscular Hemoglobin 28.1 PG (27.0-31.0) Mean Corpuscular Hemoglobin Concent 32.4 G/DL (32.0-36.0) Red Cell Distribution Width 14.6 % (11.6-14.8) Platelet Count 284 K/UL (150-450) Mean Platelet Volume 5.7 FL (6.5-10.1) L Neutrophils (%) (Auto) % (45.0-75.0) Lymphocytes (%) (Auto) % (20.0-45.0) Monocytes (%) (Auto) % (1.0-10.0) Eosinophils (%) (Auto) % (0.0-3.0) Basophils (%) (Auto) % (0.0-2.0) Differential Total Cells Counted 100 Neutrophils % (Manual) 95 % (45-75) H Lymphocytes % (Manual) 4 % (20-45) L Monocytes % (Manual) 1 % (1-10) Eosinophils % (Manual) 0 % (0-3) Basophils % (Manual) 0 % (0-2) Band Neutrophils 0 % (0-8) Platelet Estimate Adequate Platelet Morphology Normal Anisocytosis 1+ Sodium Level 138 MMOL/L (136-145) Potassium Level 4.0 MMOL/L (3.5-5.1) Chloride Level 102 MMOL/L (98-107) Carbon Dioxide Level 29 MMOL/L (21-32) Anion Gap 7 mmol/L (5-15) Blood Urea Nitrogen 27 mg/dL (7-18) H Creatinine 0.9 MG/DL (0.55-1.30) Estimat Glomerular Filtration Rate mL/min (>60) Glucose Level 150 MG/DL (74-106) H Calcium Level 8.7 MG/DL (8.5-10.1) Phosphorus Level 3.0 MG/DL (2.5-4.9) Magnesium Level 2.1 MG/DL (1.8-2.4) Total Bilirubin 0.4 MG/DL (0.2-1.0) Aspartate Amino Transf (AST/SGOT) 16 U/L (15-37) Alanine Aminotransferase (ALT/SGPT) 24 U/L (12-78) Alkaline Phosphatase 70 U/L (46-116) Total Protein 6.8 G/DL (6.4-8.2) Albumin 2.6 G/DL (3.4-5.0) L Globulin 4.2 g/dL Albumin/Globulin Ratio 0.6 (1.0-2.7) L Microbiology Date/Time Source Procedure Growth Status 01/06/18 17:40 Nasal Nares MRSA Culture - Final NO METHICILLIN RESISTANT STAPH AUREUS... Complete 01/06/18 17:56 Urine,Clean Catch Urine Culture - Final Escherichia Coli - Esbl Complete 01/06/18 17:40 Rectum VRE Culture - Final NO VANCOMYCIN RESISTANT ENTEROCOCCUS ... Complete Ashwin Marti M.D. Jan 09, 2018 16:55
[2018-01-09] MEDS ORDERED: Varibar Honey 250ml MC PRN (19:00)
[2018-01-09] MEDS ORDERED: Varibar Nectar 240ml MC PRN (19:00)
[2018-01-09] MEDS ORDERED: Varibar Pudding 230ml MC PRN (19:00)
[2018-01-09 20:00] VITALS: BP 145/73
[2018-01-09] MEDS: Haloperidol 5mg/ml Inj IM PRN (21:51)
--- NOTE | 2018-01-09 22:41 | General Progress Note ---
Assessment/Plan Assessment/Plan Schizophrenia Dementia -seroquel prn -zyprexa 5mg qhs -haldol prn -the pt lacks capacity to make decisions. -the pt may not make decisions. Subjective Date patient seen: Jan 09, 2018 Neurologic/Psychiatric: Reports: anxiety, depressed, emotional problems Allergies: Coded Allergies: No Known Allergies (Unverified , 07/31/16) Objective Last 24 Hour Vital Signs Date Time Temp Pulse Resp B/P (MAP) Pulse Ox O2 Delivery O2 Flow Rate FiO2 01/09/18 21:51 145/68 01/09/18 20:32 145/68 01/09/18 20:00 98.4 71 20 145/73 97 Nasal Cannula 2.0 98.4 01/09/18 17:54 145/68 01/09/18 16:00 98.0 95 17 145/68 96 Nasal Cannula 2.0 98.0 01/09/18 13:09 75 20 Nasal Cannula 2.0 28 01/09/18 13:08 73 20 100 Nasal Cannula 2.0 28 01/09/18 12:57 75 20 98 Nasal Cannula 2.0 28 01/09/18 12:57 21 01/09/18 12:00 97.5 93 20 133/66 95 Nasal Cannula 2.0 97.5 01/09/18 09:15 139/50 01/09/18 08:00 97.3 87 18 139/50 97 Room Air 97.3 01/09/18 06:22 157/64 01/09/18 04:00 97.3 62 20 157/64 93 Room Air 97.3 01/09/18 00:00 98.1 65 18 143/61 95 Room Air 98.1 Intake and Output 01/08/18 01/09/18 19:00 07:00 Intake Total 675 ml 110 ml Balance 675 ml 110 ml Intake Oral 675 ml IV Total 110 ml # Voids 3 2 # Bowel Movements 2 Laboratory Tests 01/09/18 06:50: White Blood Count 8.4, Red Blood Count 3.88L, Hemoglobin 10.9L, Hematocrit 33.7L , Mean Corpuscular Volume 87, Mean Corpuscular Hemoglobin 28.1, Mean Corpuscular Hemoglobin Concent 32.4, Red Cell Distribution Width 14.6, Platelet Count 284, Mean Platelet Volume 5.7L, Neutrophils (%) (Auto) , Lymphocytes (%) ( Auto) , Monocytes (%) (Auto) , Eosinophils (%) (Auto) , Basophils (%) (Auto) , Differential Total Cells Counted 100, Neutrophils % (Manual) 95H, Lymphocytes % (Manual) 4L, Monocytes % (Manual) 1, Eosinophils % (Manual) 0, Basophils % ( Manual) 0, Band Neutrophils 0, Platelet Estimate Adequate, Platelet Morphology Normal, Anisocytosis 1+, Sodium Level 138, Potassium Level 4.0, Chloride Level 102, Carbon Dioxide Level 29, Anion Gap 7, Blood Urea Nitrogen 27H, Creatinine 0.9, Estimat Glomerular Filtration Rate , Glucose Level 150H, Calcium Level 8.7 , Phosphorus Level 3.0, Magnesium Level 2.1, Total Bilirubin 0.4, Aspartate Amino Transf (AST/SGOT) 16, Alanine Aminotransferase (ALT/SGPT) 24, Alkaline Phosphatase 70, Total Protein 6.8, Albumin 2.6L, Globulin 4.2, Albumin/Globulin Ratio 0.6L Height (Feet): 5 Height (Inches): 0.00 Weight (Pounds): 130 General Appearance: no apparent distress, alert, confused Bismark Jung M.D. Jan 09, 2018 22:41
[2018-01-10] VITALS (8 sets, daily range): BP systolic 107–160; BP diastolic 55–71
[2018-01-10] MEDS: Solu-MEDROL 125mg Inj IV SCH ×2 (00:28→05:41)
[2018-01-10] MEDS: Meropenem 500 MG in NS 110 ML IVPB SCH ×2 (02:22→15:35)
[2018-01-10] MEDS: HydrALAZINE 25mg tab ORAL SCH ×2 (08:47→20:39)
[2018-01-10] MEDS: Theophylline ER 100mg ORAL SCH ×2 (08:55→20:40)
[2018-01-10] MEDS: Vitamin A&D Oint 2oz Tube TOPIC SCH ×2 (08:55→20:40)
[2018-01-10] MEDS: Heparin 5000 units/ml inj SUBQ SCH ×2 (08:56→20:41)
--- NOTE | 2018-01-10 11:01 | Pulmonology Progress Note ---
Assessment/Plan Problems: (1) Acute respiratory failure (2) At high risk for aspiration (3) Sepsis (4) COPD (chronic obstructive pulmonary disease) (5) HTN (hypertension) (6) Psychosis (7) Diabetes Assessment/Plan Urine has ESBL sensitive to Ertapenem ID evaluation wbc normal eating better behavior better improving respiratory treatment iv abx check sputum psych to see respiratory treatment social service consult reviewed, DOPA is nowhere to be found pt is at high risk of aspiration with end stage dementia, she has psychosis as well. Putting a Gtube would be impossible. she is a good candidate for comfort and symptomatic care. Subjective ROS Limited/Unobtainable: No Constitutional: Reports: no symptoms HEENT: Repors: no symptoms Respiratory: Reports: no symptoms Allergies: Coded Allergies: No Known Allergies (Unverified , 07/31/16) Objective Last 24 Hour Vital Signs Date Time Temp Pulse Resp B/P (MAP) Pulse Ox O2 Delivery O2 Flow Rate FiO2 01/10/18 08:47 107/71 01/10/18 08:29 69 20 Room Air 21 01/10/18 08:29 Room Air 21 01/10/18 08:00 97.7 54 20 107/71 100 Nasal Cannula 2.0 97.7 01/10/18 05:41 147/67 01/10/18 04:00 97.9 55 19 147/67 99 Nasal Cannula 2.0 97.9 01/10/18 00:00 98.0 60 19 160/65 98 Nasal Cannula 2.0 98.0 01/09/18 21:51 145/68 01/09/18 20:32 145/68 01/09/18 20:00 98.4 71 20 145/73 97 Nasal Cannula 2.0 98.4 01/09/18 19:09 Nasal Cannula 2.0 28 01/09/18 19:09 78 18 Nasal Cannula 2.0 28 01/09/18 17:54 145/68 01/09/18 16:00 98.0 95 17 145/68 96 Nasal Cannula 2.0 98.0 01/09/18 13:09 75 20 Nasal Cannula 2.0 28 01/09/18 13:08 73 20 100 Nasal Cannula 2.0 28 01/09/18 12:57 75 20 98 Nasal Cannula 2.0 28 01/09/18 12:57 21 01/09/18 12:00 97.5 93 20 133/66 95 Nasal Cannula 2.0 97.5 Intake and Output 01/09/18 01/10/18 19:00 07:00 Intake Total 450 ml 310 ml Balance 450 ml 310 ml Intake Oral 450 ml 200 ml IV Total 110 ml # Voids 3 2 # Bowel Movements 1 General Appearance: WD/WN HEENT: normocephalic, atraumatic Respiratory/Chest: chest wall non-tender, lungs clear Breasts: no masses Cardiovascular: normal peripheral pulses Abdomen: normal bowel sounds, soft, non tender Genitourinary: normal external genitalia Extremities: no clubbing Skin: no rash Neurologic/Psychiatric: tankroom tender II-XII grossly normal Current Medications Medications (Trade) Dose Ordered Sig/Janessa Route PRN Reason Start Time Stop Time Status Last Admin Dose Admin Acetaminophen (Tylenol) 650 mg Q4H PRN ORAL fever 01/08/18 19:00 02/05/18 18:59 Albuterol/ Ipratropium (Albuterol/ Ipratropium) 3 ml EVERY 4 HOURS PRN HHN dyspnea 01/08/18 19:10 01/11/18 19:09 01/09/18 13:07 Clonidine HCl (Catapres Tab) 0.1 mg EVERY 4 HOURS PRN ORAL sbp more than 160 01/08/18 19:09 02/05/18 19:08 Clonidine HCl (Catapres Tab) 0.1 mg EVERY 8 HOURS ORAL 01/08/18 22:00 02/05/18 21:59 01/10/18 05:41 Dextrose (Dextrose 50%) 50 ml STAT PRN IV BS less than 60mg/dl 01/08/18 19:00 02/05/18 18:59 Haloperidol Lactate (Haldol) 5 mg Q6H PRN IM Agitation 01/08/18 19:10 02/07/18 19:09 01/09/18 21:51 Heparin Sodium (Porcine) (Heparin 5000 units/ml) 5,000 units EVERY 12 HOURS SUBQ 01/08/18 21:00 02/05/18 20:59 01/10/18 08:56 Hydralazine HCl (Apresoline) 25 mg Q12HR ORAL 01/09/18 09:00 02/08/18 08:59 01/09/18 20:32 Meropenem 500 mg/ Sodium Chloride 110 ml @ 220 mls/hr Q12H IVPB 01/09/18 04:00 01/13/18 23:59 01/10/18 02:22 Methylprednisolone Sodium Succinate (Solu-MEDROL) 60 mg EVERY 6 HOURS IV 01/09/18 00:00 02/06/18 00:00 01/10/18 05:41 Nitroglycerin (Ntg) 0.4 mg Q5M X 3 DOSES PRN SL Prn Chest Pain 01/08/18 18:45 02/05/18 18:59 Olanzapine (ZyPREXA) 5 mg BEDTIME ORAL 01/08/18 21:00 02/06/18 20:59 01/09/18 20:32 Ondansetron HCl (Zofran) 4 mg Q6H PRN IVP Nausea & Vomiting 01/08/18 19:00 02/05/18 18:59 Promethazine HCl/ Codeine (Phenergan with Codeine) 5 ml EVERY 6 HOURS PRN ORAL cough 01/08/18 19:12 02/07/18 19:11 Quetiapine Fumarate (SEROquel) 25 mg Q6H PRN ORAL For Anxiety 01/08/18 19:12 02/06/18 19:11 01/09/18 09:18 Temazepam (Restoril) 15 mg HSPRN PRN ORAL Insomnia 01/08/18 19:00 01/13/18 18:59 Theophylline (Ramesh-Dur) 100 mg Q12HR ORAL 01/09/18 09:00 02/08/18 08:59 01/10/18 08:55 Vitamin A/Vitamin D (A & D Oint) 1 applic Q12HR TOPIC 01/08/18 21:00 02/06/18 08:59 01/10/18 08:55 Maureen Perkins MD Jan 10, 2018 11:01
[2018-01-10] MEDS: Albuterol/Ipratropium 3ml neb HHN PRN (11:30)
[2018-01-10] MEDS: Haloperidol 5mg/ml Inj IM PRN (13:03)
--- NOTE | 2018-01-10 19:11 | Cardiology Progress Note ---
Assessment/Plan Status: doing well, stable Assessment/Plan Pulmonary toilet Steroids Breathing treatments BP control with clonidine/hydralazine No signs of heart failure or fluid overload to explain shortness of breath Monitor for aspiration/speech and swallow evaluation G tube for comfort care Supportive care consult Dispo planning Subjective Cardiovascular: Reports: no symptoms Respiratory: Reports: no symptoms Gastrointestinal/Abdominal: Reports: no symptoms Genitourinary: Reports: no symptoms Subjective No acute events, Awake and alert, tolerating PO Objective Last 24 Hour Vital Signs Date Time Temp Pulse Resp B/P (MAP) Pulse Ox O2 Delivery O2 Flow Rate FiO2 01/10/18 18:09 89 117/66 94 Room Air 01/10/18 16:00 97.7 89 159/59 95 Room Air 97.7 01/10/18 13:55 140/60 01/10/18 13:51 98.2 140/60 95 Room Air 98.2 01/10/18 12:00 97.9 86 20 157/55 95 Room Air 97.9 01/10/18 11:42 64 20 99 Room Air 21 01/10/18 11:30 21 01/10/18 11:30 70 20 95 Room Air 21 01/10/18 08:47 107/71 01/10/18 08:29 69 20 Room Air 21 01/10/18 08:29 Room Air 21 01/10/18 08:00 97.7 54 20 107/71 100 Nasal Cannula 2.0 97.7 01/10/18 05:41 147/67 01/10/18 04:00 97.9 55 19 147/67 99 Nasal Cannula 2.0 97.9 01/10/18 00:00 98.0 60 19 160/65 98 Nasal Cannula 2.0 98.0 01/09/18 21:51 145/68 01/09/18 20:32 145/68 01/09/18 20:00 98.4 71 20 145/73 97 Nasal Cannula 2.0 98.4 General Appearance: no apparent distress EENT: PERRL/EOMI Neck: non-tender Rhythm: NSR Cardiovascular: normal peripheral pulses Respiratory/Chest: chest wall non-tender Abdomen: normal bowel sounds, non tender Extremities: normal range of motion 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 Jan 10, 2018 19:11
[2018-01-11] VITALS (7 sets, daily range): BP systolic 100–182; BP diastolic 63–79
[2018-01-11] MEDS: Meropenem 500 MG in NS 110 ML IVPB SCH (04:31)
[2018-01-11 07:48] LABS: BASOPHILS % (AUTO) 0.7 % (0.0-2.0); EOSINOPHILS % (AUTO) 0.1 % (0.0-3.0); HEMATOCRIT 34.6 % (37.0-47.0); HEMOGLOBIN 11.1 G/DL (12.0-16.0); LYMPHOCYTES % (AUTO) 11.8 % (20.0-45.0); MEAN CORPUSCULAR VOLUME 87 FL (80-99); MONOCYTES % (AUTO) 4.9 % (1.0-10.0); NEUTROPHILS % (AUTO) 82.5 % (45.0-75.0); PLATELET COUNT 262 K/UL (150-450); RED BLOOD COUNT 3.98 M/UL (4.20-5.40); WHITE BLOOD COUNT 8.6 K/UL (4.8-10.8)
[2018-01-11] MEDS: Theophylline ER 100mg ORAL SCH ×2 (08:06→20:42)
[2018-01-11] MEDS: HydrALAZINE 25mg tab ORAL SCH ×2 (08:06→20:42)
[2018-01-11] MEDS: Heparin 5000 units/ml inj SUBQ SCH ×2 (08:07→20:44)
[2018-01-11] MEDS: Vitamin A&D Oint 2oz Tube TOPIC SCH ×2 (08:08→20:45)
[2018-01-11 08:22] LABS: ALANINE AMINOTRANSFERASE 15 U/L (12-78); ALBUMIN 2.4 G/DL (3.4-5.0); ALBUMIN/GLOBULIN RATIO 0.6 (1.0-2.7); ALKALINE PHOSPHATASE 69 U/L (46-116); ANION GAP 4 mmol/L (5-15); ASPARTATE AMINO TRANSFERASE 18 U/L (15-37); BILIRUBIN,TOTAL 0.4 MG/DL (0.2-1.0); BLOOD UREA NITROGEN 24 mg/dL (7-18); CALCIUM 8.5 MG/DL (8.5-10.1); CARBON DIOXIDE 31 MMOL/L (21-32); CHLORIDE 104 MMOL/L (98-107); CREATININE 0.9 MG/DL (0.55-1.30); PHOSPHORUS 2.3 MG/DL (2.5-4.9); SODIUM 139 MMOL/L (136-145)
[2018-01-11] MEDS ORDERED: Solu-MEDROL 125mg Inj IV SCH (09:00)
[2018-01-11] MEDS: Albuterol/Ipratropium 3ml neb HHN PRN (12:12)
--- NOTE | 2018-01-11 12:45 | Cardiology Progress Note ---
Assessment/Plan Assessment/Plan Pulmonary toilet Steroids Breathing treatments BP control with clonidine/hydralazine No signs of heart failure or fluid overload to explain shortness of breath Monitor for aspiration/speech and swallow evaluation G tube for comfort care Supportive care consult Dispo planning Subjective Cardiovascular: Reports: no symptoms Respiratory: Reports: no symptoms Gastrointestinal/Abdominal: Reports: no symptoms Genitourinary: Reports: no symptoms Subjective No acute events, Awake and alert, tolerating PO Objective Last 24 Hour Vital Signs Date Time Temp Pulse Resp B/P (MAP) Pulse Ox O2 Delivery O2 Flow Rate FiO2 01/11/18 12:22 98 24 99 Nasal Cannula 2.0 28 01/11/18 12:12 98 20 98 Nasal Cannula 2.0 28 01/11/18 12:00 97.4 100 156/74 90 Room Air 97.4 01/11/18 09:04 85 160/63 01/11/18 08:16 86 20 Room Air 21 01/11/18 08:16 Room Air 21 01/11/18 08:06 182/77 01/11/18 07:58 97.1 76 182/77 97 Room Air 97.1 01/11/18 06:00 100/77 01/11/18 04:00 97.3 54 100/77 98 Room Air 97.3 01/11/18 00:00 98.0 63 140/65 96 Room Air 98.0 01/10/18 22:17 117/66 01/10/18 20:39 117/66 01/10/18 20:00 98.0 68 139/59 96 Room Air 98.0 01/10/18 19:54 Nasal Cannula 2.0 28 01/10/18 19:54 78 18 Nasal Cannula 2.0 28 01/10/18 18:09 89 117/66 94 Room Air 01/10/18 16:00 97.7 89 159/59 95 Room Air 97.7 01/10/18 13:55 140/60 01/10/18 13:51 98.2 140/60 95 Room Air 98.2 General Appearance: no apparent distress EENT: PERRL/EOMI Neck: non-tender Rhythm: NSR Cardiovascular: normal rate Respiratory/Chest: chest wall non-tender Abdomen: normal bowel sounds Extremities: normal range of motion 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 normal Intake and Output 01/10/18 01/11/18 19:00 07:00 Intake Total 230 ml 110 ml Balance 230 ml 110 ml Intake Oral 120 ml IV Total 110 ml 110 ml # Voids 5 3 # Bowel Movements 5 Laboratory Tests Test 01/11/18 07:24 White Blood Count 8.6 K/UL (4.8-10.8) Red Blood Count 3.98 M/UL (4.20-5.40) L Hemoglobin 11.1 G/DL (12.0-16.0) L Hematocrit 34.6 % (37.0-47.0) L Mean Corpuscular Volume 87 FL (80-99) Mean Corpuscular Hemoglobin 27.8 PG (27.0-31.0) Mean Corpuscular Hemoglobin Concent 31.9 G/DL (32.0-36.0) L Red Cell Distribution Width 15.0 % (11.6-14.8) H Platelet Count 262 K/UL (150-450) Mean Platelet Volume 5.8 FL (6.5-10.1) L Neutrophils (%) (Auto) 82.5 % (45.0-75.0) H Lymphocytes (%) (Auto) 11.8 % (20.0-45.0) L Monocytes (%) (Auto) 4.9 % (1.0-10.0) Eosinophils (%) (Auto) 0.1 % (0.0-3.0) Basophils (%) (Auto) 0.7 % (0.0-2.0) Sodium Level 139 MMOL/L (136-145) Potassium Level 4.0 MMOL/L (3.5-5.1) Chloride Level 104 MMOL/L (98-107) Carbon Dioxide Level 31 MMOL/L (21-32) Anion Gap 4 mmol/L (5-15) L Blood Urea Nitrogen 24 mg/dL (7-18) H Creatinine 0.9 MG/DL (0.55-1.30) Estimat Glomerular Filtration Rate mL/min (>60) Glucose Level 103 MG/DL (74-106) Calcium Level 8.5 MG/DL (8.5-10.1) Phosphorus Level 2.3 MG/DL (2.5-4.9) L Magnesium Level 2.1 MG/DL (1.8-2.4) Total Bilirubin 0.4 MG/DL (0.2-1.0) Aspartate Amino Transf (AST/SGOT) 18 U/L (15-37) Alanine Aminotransferase (ALT/SGPT) 15 U/L (12-78) Alkaline Phosphatase 69 U/L (46-116) Total Protein 6.2 G/DL (6.4-8.2) L Albumin 2.4 G/DL (3.4-5.0) L Globulin 3.8 g/dL Albumin/Globulin Ratio 0.6 (1.0-2.7) L Ashwin Marti M.D. Jan 11, 2018 12:45
[2018-01-11] MEDS ORDERED: Levalbuterol Inh UD 1.25mg/0.5ml HHN SCH (14:00)
--- NOTE | 2018-01-11 14:48 | Pulmonology Progress Note ---
Assessment/Plan Problems: (1) Acute respiratory failure (2) At high risk for aspiration (3) Sepsis (4) COPD (chronic obstructive pulmonary disease) (5) HTN (hypertension) (6) Psychosis (7) Diabetes Assessment/Plan pt refusing suction stat CXR Urine has ESBL sensitive to Ertapenem ID evaluation pending wbc normal eating better behavior better improving respiratory treatment iv abx check sputum psych to see respiratory treatment social service consult reviewed, DOPA is nowhere to be found pt is at high risk of aspiration with end stage dementia, she has psychosis as well. Putting a Gtube would be impossible. she is a good candidate for comfort and symptomatic care. Subjective ROS Limited/Unobtainable: No Constitutional: Reports: no symptoms HEENT: Repors: no symptoms Respiratory: Reports: no symptoms Cardiovascular: Reports: no symptoms Allergies: Coded Allergies: No Known Allergies (Unverified , 07/31/16) Objective Last 24 Hour Vital Signs Date Time Temp Pulse Resp B/P (MAP) Pulse Ox O2 Delivery O2 Flow Rate FiO2 01/11/18 13:21 156/74 01/11/18 12:22 98 24 99 Nasal Cannula 2.0 28 01/11/18 12:12 98 20 98 Nasal Cannula 2.0 28 01/11/18 12:00 97.4 100 156/74 90 Room Air 97.4 01/11/18 09:04 85 160/63 01/11/18 08:16 86 20 Room Air 21 01/11/18 08:16 Room Air 21 01/11/18 08:06 182/77 01/11/18 07:58 97.1 76 182/77 97 Room Air 97.1 01/11/18 06:00 100/77 01/11/18 04:00 97.3 54 100/77 98 Room Air 97.3 01/11/18 00:00 98.0 63 140/65 96 Room Air 98.0 01/10/18 22:17 117/66 01/10/18 20:39 117/66 01/10/18 20:00 98.0 68 139/59 96 Room Air 98.0 01/10/18 19:54 Nasal Cannula 2.0 28 01/10/18 19:54 78 18 Nasal Cannula 2.0 28 01/10/18 18:09 89 117/66 94 Room Air 01/10/18 16:00 97.7 89 159/59 95 Room Air 97.7 Intake and Output 01/10/18 01/11/18 19:00 07:00 Intake Total 230 ml 110 ml Balance 230 ml 110 ml Intake Oral 120 ml IV Total 110 ml 110 ml # Voids 5 3 # Bowel Movements 5 General Appearance: WD/WN HEENT: normocephalic, atraumatic Respiratory/Chest: chest wall non-tender, accessory muscle use, crackles/rales , other - loud audible rhonchi Breasts: no masses Cardiovascular: normal peripheral pulses, normal rate Abdomen: normal bowel sounds, no organomegaly, no mass Genitourinary: normal external genitalia Extremities: no clubbing Skin: no rash Laboratory Tests 01/11/18 07:24: White Blood Count 8.6, Red Blood Count 3.98L, Hemoglobin 11.1L, Hematocrit 34.6L , Mean Corpuscular Volume 87, Mean Corpuscular Hemoglobin 27.8, Mean Corpuscular Hemoglobin Concent 31.9L, Red Cell Distribution Width 15.0H, Platelet Count 262, Mean Platelet Volume 5.8L, Neutrophils (%) (Auto) 82.5H, Lymphocytes (%) (Auto) 11.8L, Monocytes (%) (Auto) 4.9, Eosinophils (%) (Auto) 0.1, Basophils (%) (Auto) 0.7, Sodium Level 139, Potassium Level 4.0, Chloride Level 104, Carbon Dioxide Level 31, Anion Gap 4L, Blood Urea Nitrogen 24H, Creatinine 0.9, Estimat Glomerular Filtration Rate , Glucose Level 103, Calcium Level 8.5, Phosphorus Level 2.3L, Magnesium Level 2.1, Total Bilirubin 0.4, Aspartate Amino Transf (AST/SGOT) 18, Alanine Aminotransferase (ALT/SGPT) 15, Alkaline Phosphatase 69, Total Protein 6.2L, Albumin 2.4L, Globulin 3.8, Albumin /Globulin Ratio 0.6L Current Medications Medications (Trade) Dose Ordered Sig/Jansesa Route PRN Reason Start Time Stop Time Status Last Admin Dose Admin Acetaminophen (Tylenol) 650 mg Q4H PRN ORAL fever 01/08/18 19:00 02/05/18 18:59 Albuterol/ Ipratropium (Albuterol/ Ipratropium) 3 ml EVERY 4 HOURS PRN HHN dyspnea 01/08/18 19:10 01/11/18 19:09 01/11/18 12:12 Clonidine HCl (Catapres Tab) 0.1 mg EVERY 4 HOURS PRN ORAL sbp more than 160 01/08/18 19:09 02/05/18 19:08 Clonidine HCl (Catapres Tab) 0.1 mg EVERY 8 HOURS ORAL 01/08/18 22:00 02/05/18 21:59 01/11/18 13:21 Dextrose (Dextrose 50%) 50 ml STAT PRN IV BS less than 60mg/dl 01/08/18 19:00 02/05/18 18:59 Haloperidol Lactate (Haldol) 5 mg Q6H PRN IM Agitation 01/08/18 19:10 02/07/18 19:09 01/10/18 13:03 Heparin Sodium (Porcine) (Heparin 5000 units/ml) 5,000 units EVERY 12 HOURS SUBQ 01/08/18 21:00 02/05/18 20:59 01/11/18 08:07 Hydralazine HCl (Apresoline) 25 mg Q12HR ORAL 01/09/18 09:00 02/08/18 08:59 01/11/18 08:06 Levalbuterol HCl (Xopenex) 1.25 mg TIDRT HHN 01/11/18 14:00 01/16/18 13:59 Meropenem 500 mg/ Sodium Chloride 110 ml @ 220 mls/hr Q12H IVPB 01/09/18 04:00 01/13/18 23:59 01/11/18 04:31 Methylprednisolone Sodium Succinate (Solu-MEDROL) 60 mg DAILY IV 01/11/18 09:00 02/06/18 00:00 01/11/18 08:06 Nitroglycerin (Ntg) 0.4 mg Q5M X 3 DOSES PRN SL Prn Chest Pain 01/08/18 18:45 02/05/18 18:59 Olanzapine (ZyPREXA) 5 mg BEDTIME ORAL 01/08/18 21:00 02/06/18 20:59 01/10/18 20:40 Ondansetron HCl (Zofran) 4 mg Q6H PRN IVP Nausea & Vomiting 01/08/18 19:00 02/05/18 18:59 Promethazine HCl/ Codeine (Phenergan with Codeine) 5 ml EVERY 6 HOURS PRN ORAL cough 01/08/18 19:12 02/07/18 19:11 Quetiapine Fumarate (SEROquel) 25 mg Q6H PRN ORAL For Anxiety 01/08/18 19:12 02/06/18 19:11 01/10/18 20:40 Temazepam (Restoril) 15 mg HSPRN PRN ORAL Insomnia 01/08/18 19:00 01/13/18 18:59 Theophylline (Ramesh-Dur) 100 mg Q12HR ORAL 01/09/18 09:00 02/08/18 08:59 01/11/18 08:06 Vitamin A/Vitamin D (A & D Oint) 1 applic Q12HR TOPIC 01/08/18 21:00 02/06/18 08:59 01/11/18 08:08 Maureen Perkins MD Jan 11, 2018 14:48
--- NOTE | 2018-01-11 16:07 | Consultation ---
History of Present Illness General Date patient seen: Jan 11, 2018 Time patient seen: 15:50 Chief Complaint: Dyspnea/Respdistress Referring physician: camacho Reason for Consultation: CAD, HTN, SOB Present Illness HPI 87 y/o F with hx of Dementia, paranoid schizophrenia, Anxiety,HLD, Vit D deficiency, HTN, CHF, HTN, recurrent UTI, COPD, chronic pain syndrome, anemia presents to ED on 01/06 with SOB, B/l LE edema, poor intake, and resp distress. Was noted to have Low O2 and congestion Afebrile. Initial leukocytosis, now resolved. CXR no acute diseae ID cosnulted for ESBL E.coli in urine. Of note patient admitted here from 12/23-12/28 with COPD exacerbation requiring Bipap. Received 5 days of Levaquin. Allergies: Coded Allergies: No Known Allergies (Unverified , 07/31/16) Medication History Scheduled Ascorbic Acid* (Vitamin C*), 500 MG ORAL DAILY, (Reported) Atorvastatin Calcium* (Atorvastatin Calcium*), 20 MG ORAL BEDTIME, (Reported) Clonidine Hcl* (Catapres*), 0.1 MG ORAL EVERY 8 HOURS, (Reported) Cranberry Fruit Concentrate (Cranberry), 450 MG PO BID, (Reported) Docusate Sodium* (Docusate Sodium*), 100 MG ORAL DAILY, (Reported) Famotidine (Famotidine), 20 MG ORAL DAILY, (Reported) Folic Acid* (Folic Acid*), 1 MG ORAL DAILY, (Reported) Furosemide (Furosemide), 20 MG ORAL 2XW Furosemide* (Lasix*), 20 MG ORAL TWICE A WEEK, (Reported) Hydralazine Hcl* (Hydralazine Hcl*), 25 MG ORAL BID, (Reported) Ipratropium/Albuterol Sulfate (Iprat-Albut 0.5-3(2.5) Mg/3 Ml), 3 ML IH EVERY 4 HOURS, (Reported) Multivitamin With Minerals (Multivitamins With Minerals*), 1 TAB ORAL DAILY, ( Reported) Na Phos,M-B/Na Phos,Di-Ba* (Fleet Enema*), 133 ML RECTAL NEEDED, (Reported) Theophylline (Theodur*), 100 MG ORAL TWICE A DAY, (Reported) Tramadol Hcl* (Ultram*), 50 MG ORAL ONCE, (Reported) Vit B Comp/C/Fa/Iron/Vit E (Vitamin B Complex Tablet), 1 TAB PO DAILY, (Reported ) Scheduled PRN Acetaminophen* (Tylenol Extra Strength*), 500 MG ORAL Q6H PRN for For Pain, ( Reported) Acetaminophen* (Acetaminophen 325MG Tablet*), 650 MG ORAL Q6H PRN for For Pain, (Reported) Bisacodyl (Dulcolax), 10 MG RC for Constipation, (Reported) Hydromorphone Hcl (Hydromorphone Hcl), 2 MG PO EVERY 6 HOURS PRN for For Pain, ( Reported) Magnesium Hydroxide* (Milk Of Magnesia*), 30 ML ORAL DAILY PRN for Constipation, (Reported) Temazepam* (Restoril*), 15 MG ORAL BEDTIME PRN for Insomnia, (Reported) Patient History Healthcare decision maker Resuscitation status Full Code Advanced Directive on File Patient History Narrative Pmhx: as above Shx: resides in a nursing facility. Denies: smoking, alcohol use, drug use Fmhx: non contributory Physical Exam Physical Exam Narrative HEAD AND NECK: Sclerae anicteric. CHEST: Rhonchi at the bases. CARDIAC: Tachycardic. The patient is very anxious. ABDOMEN: Soft, nontender, and nondistended. No palpable masses. EXTREMITIES: Some edema, trace, more on the right than the left. NEUROLOGIC: The patient seems to be able to move all extremities. However, she is extremely agitated. Does not communicate whatsoever. She is awake. BREASTS: Examination done with 2 of the female hospital staff in the room. No palpable masses noted. LYMPH NODES: There is no palpable cervical, supraclavicular, axillary, or groin adenopathy. Last 24 Hour Vital Signs Date Time Temp Pulse Resp B/P (MAP) Pulse Ox O2 Delivery O2 Flow Rate FiO2 01/11/18 13:21 156/74 01/11/18 12:22 98 24 99 Nasal Cannula 2.0 28 01/11/18 12:12 98 20 98 Nasal Cannula 2.0 28 01/11/18 12:00 97.4 100 156/74 90 Room Air 97.4 01/11/18 09:04 85 160/63 01/11/18 08:16 86 20 Room Air 21 01/11/18 08:16 Room Air 21 01/11/18 08:06 182/77 01/11/18 07:58 97.1 76 182/77 97 Room Air 97.1 01/11/18 06:00 100/77 01/11/18 04:00 97.3 54 100/77 98 Room Air 97.3 01/11/18 00:00 98.0 63 140/65 96 Room Air 98.0 01/10/18 22:17 117/66 01/10/18 20:39 117/66 01/10/18 20:00 98.0 68 139/59 96 Room Air 98.0 01/10/18 19:54 Nasal Cannula 2.0 28 01/10/18 19:54 78 18 Nasal Cannula 2.0 28 01/10/18 18:09 89 117/66 94 Room Air 01/10/18 16:00 97.7 89 159/59 95 Room Air 97.7 Intake and Output 01/10/18 01/11/18 19:00 07:00 Intake Total 230 ml 110 ml Balance 230 ml 110 ml Intake Oral 120 ml IV Total 110 ml 110 ml # Voids 5 3 # Bowel Movements 5 Laboratory Tests Test 01/11/18 07:24 White Blood Count 8.6 K/UL (4.8-10.8) Red Blood Count 3.98 M/UL (4.20-5.40) L Hemoglobin 11.1 G/DL (12.0-16.0) L Hematocrit 34.6 % (37.0-47.0) L Mean Corpuscular Volume 87 FL (80-99) Mean Corpuscular Hemoglobin 27.8 PG (27.0-31.0) Mean Corpuscular Hemoglobin Concent 31.9 G/DL (32.0-36.0) L Red Cell Distribution Width 15.0 % (11.6-14.8) H Platelet Count 262 K/UL (150-450) Mean Platelet Volume 5.8 FL (6.5-10.1) L Neutrophils (%) (Auto) 82.5 % (45.0-75.0) H Lymphocytes (%) (Auto) 11.8 % (20.0-45.0) L Monocytes (%) (Auto) 4.9 % (1.0-10.0) Eosinophils (%) (Auto) 0.1 % (0.0-3.0) Basophils (%) (Auto) 0.7 % (0.0-2.0) Sodium Level 139 MMOL/L (136-145) Potassium Level 4.0 MMOL/L (3.5-5.1) Chloride Level 104 MMOL/L (98-107) Carbon Dioxide Level 31 MMOL/L (21-32) Anion Gap 4 mmol/L (5-15) L Blood Urea Nitrogen 24 mg/dL (7-18) H Creatinine 0.9 MG/DL (0.55-1.30) Estimat Glomerular Filtration Rate mL/min (>60) Glucose Level 103 MG/DL (74-106) Calcium Level 8.5 MG/DL (8.5-10.1) Phosphorus Level 2.3 MG/DL (2.5-4.9) L Magnesium Level 2.1 MG/DL (1.8-2.4) Total Bilirubin 0.4 MG/DL (0.2-1.0) Aspartate Amino Transf (AST/SGOT) 18 U/L (15-37) Alanine Aminotransferase (ALT/SGPT) 15 U/L (12-78) Alkaline Phosphatase 69 U/L (46-116) Total Protein 6.2 G/DL (6.4-8.2) L Albumin 2.4 G/DL (3.4-5.0) L Globulin 3.8 g/dL Albumin/Globulin Ratio 0.6 (1.0-2.7) L Height (Feet): 5 Height (Inches): 0.00 Weight (Pounds): 130 Medications Current Medications Medications (Trade) Dose Ordered Sig/Janessa Route PRN Reason Start Time Stop Time Status Last Admin Dose Admin Acetaminophen (Tylenol) 650 mg Q4H PRN ORAL fever 01/08/18 19:00 02/05/18 18:59 Albuterol/ Ipratropium (Albuterol/ Ipratropium) 3 ml EVERY 4 HOURS PRN HHN dyspnea 01/08/18 19:10 01/11/18 19:09 01/11/18 12:12 Clonidine HCl (Catapres Tab) 0.1 mg EVERY 4 HOURS PRN ORAL sbp more than 160 01/08/18 19:09 02/05/18 19:08 Clonidine HCl (Catapres Tab) 0.1 mg EVERY 8 HOURS ORAL 01/08/18 22:00 02/05/18 21:59 01/11/18 13:21 Dextrose (Dextrose 50%) 50 ml STAT PRN IV BS less than 60mg/dl 01/08/18 19:00 02/05/18 18:59 Haloperidol Lactate (Haldol) 5 mg Q6H PRN IM Agitation 01/08/18 19:10 02/07/18 19:09 01/10/18 13:03 Heparin Sodium (Porcine) (Heparin 5000 units/ml) 5,000 units EVERY 12 HOURS SUBQ 01/08/18 21:00 02/05/18 20:59 01/11/18 08:07 Hydralazine HCl (Apresoline) 25 mg Q12HR ORAL 01/09/18 09:00 02/08/18 08:59 01/11/18 08:06 Levalbuterol HCl (Xopenex) 1.25 mg TIDRT HHN 01/11/18 14:00 01/16/18 13:59 Meropenem 500 mg/ Sodium Chloride 110 ml @ 220 mls/hr Q12H IVPB 01/09/18 04:00 01/13/18 23:59 01/11/18 04:31 Nitroglycerin (Ntg) 0.4 mg Q5M X 3 DOSES PRN SL Prn Chest Pain 01/08/18 18:45 02/05/18 18:59 Olanzapine (ZyPREXA) 5 mg BEDTIME ORAL 01/08/18 21:00 02/06/18 20:59 01/10/18 20:40 Ondansetron HCl (Zofran) 4 mg Q6H PRN IVP Nausea & Vomiting 01/08/18 19:00 02/05/18 18:59 Promethazine HCl/ Codeine (Phenergan with Codeine) 5 ml EVERY 6 HOURS PRN ORAL cough 01/08/18 19:12 02/07/18 19:11 Quetiapine Fumarate (SEROquel) 25 mg Q6H PRN ORAL For Anxiety 01/08/18 19:12 02/06/18 19:11 01/10/18 20:40 Temazepam (Restoril) 15 mg HSPRN PRN ORAL Insomnia 01/08/18 19:00 01/13/18 18:59 Theophylline (Ramesh-Dur) 100 mg Q12HR ORAL 01/09/18 09:00 02/08/18 08:59 01/11/18 08:06 Vitamin A/Vitamin D (A & D Oint) 1 applic Q12HR TOPIC 01/08/18 21:00 02/06/18 08:59 01/11/18 08:08 Assessment/Plan Assessment/Plan Abx: Levaquin 01/06-01/08 Meropenem 01/09- Assessment: COPD exacerbation -CXR: No acute disease Leukocytosis, resolved -afebrile POssible UTI -u/a wbc 5-10, nit neg, luek +1; ucx >100K E.coli ESBL (S nitrofurantoin, Meropenem, Bactrim) BLE edema -v.duplex no DVT Dementia paranoid schizophrenia Anxiety HLD Vit D deficiency HTN CHF HTN recurrent UTI COPD chronic pain syndrome anemia CAD Plan: -Switch Meropenem #3/5 to Ertapenem; upon discharge can transition to PO Bactrim DS 1 tab bid to complete course. -01/08 SP Levaquin #3 -12/27 SP Levaquin day # 5 -f/u cx -Monitor CBC/BMP, temperatures -aspiration precautions Thank you for this consultation. Will continue to follow along with you. Discussed with Coty Alvarado M.D. Jan 11, 2018 16:07
--- NOTE | 2018-01-11 16:57 | Diagnostic Imaging Report ---
Indication: Dyspnea Technique: One view of the chest Comparison: 01/06/2018 Findings: Lungs and pleural spaces are clear. Patient is rotated to the right. The heart size is normal. There are degenerative changes of the left shoulder again noted. Impression: No acute process
[2018-01-11] MEDS: Ertapenem 1 GM in NS 55 ML IVPB SCH (18:20)
[2018-01-11] MEDS: Levalbuterol Inh UD 1.25mg/0.5ml HHN SCH ×2 (20:01→23:32)
--- NOTE | 2018-01-11 22:50 | General Progress Note ---
Assessment/Plan Assessment/Plan Schizophrenia Dementia -seroquel prn -zyprexa 5mg qhs -haldol prn -the pt lacks capacity to make decisions. -the pt may not make decisions. Subjective Date patient seen: Jan 11, 2018 Neurologic/Psychiatric: Reports: anxiety, depressed, emotional problems Allergies: Coded Allergies: No Known Allergies (Unverified , 07/31/16) Objective Last 24 Hour Vital Signs Date Time Temp Pulse Resp B/P (MAP) Pulse Ox O2 Delivery O2 Flow Rate FiO2 01/11/18 22:31 135/98 01/11/18 20:42 171/68 01/11/18 20:00 97.5 70 18 171/68 96 Room Air 97.5 01/11/18 19:28 88 20 99 Nasal Cannula 2.0 28 01/11/18 19:17 84 18 Room Air 21 01/11/18 19:17 84 18 96 Room Air 21 01/11/18 19:17 Room Air 21 01/11/18 16:00 97.1 114 156/79 95 Room Air 97.1 01/11/18 13:21 156/74 01/11/18 12:22 98 24 99 Nasal Cannula 2.0 28 01/11/18 12:12 98 20 98 Nasal Cannula 2.0 28 01/11/18 12:00 97.4 100 156/74 90 Room Air 97.4 01/11/18 09:04 85 160/63 01/11/18 08:16 86 20 Room Air 21 01/11/18 08:16 Room Air 21 01/11/18 08:06 182/77 01/11/18 07:58 97.1 76 182/77 97 Room Air 97.1 01/11/18 06:00 100/77 01/11/18 04:00 97.3 54 100/77 98 Room Air 97.3 01/11/18 00:00 98.0 63 140/65 96 Room Air 98.0 Intake and Output 01/10/18 01/11/18 19:00 07:00 Intake Total 230 ml 110 ml Balance 230 ml 110 ml Intake Oral 120 ml IV Total 110 ml 110 ml # Voids 5 3 # Bowel Movements 5 Laboratory Tests 01/11/18 07:24: White Blood Count 8.6, Red Blood Count 3.98L, Hemoglobin 11.1L, Hematocrit 34.6L , Mean Corpuscular Volume 87, Mean Corpuscular Hemoglobin 27.8, Mean Corpuscular Hemoglobin Concent 31.9L, Red Cell Distribution Width 15.0H, Platelet Count 262, Mean Platelet Volume 5.8L, Neutrophils (%) (Auto) 82.5H, Lymphocytes (%) (Auto) 11.8L, Monocytes (%) (Auto) 4.9, Eosinophils (%) (Auto) 0.1, Basophils (%) (Auto) 0.7, Sodium Level 139, Potassium Level 4.0, Chloride Level 104, Carbon Dioxide Level 31, Anion Gap 4L, Blood Urea Nitrogen 24H, Creatinine 0.9, Estimat Glomerular Filtration Rate , Glucose Level 103, Calcium Level 8.5, Phosphorus Level 2.3L, Magnesium Level 2.1, Total Bilirubin 0.4, Aspartate Amino Transf (AST/SGOT) 18, Alanine Aminotransferase (ALT/SGPT) 15, Alkaline Phosphatase 69, Total Protein 6.2L, Albumin 2.4L, Globulin 3.8, Albumin /Globulin Ratio 0.6L Height (Feet): 5 Height (Inches): 0.00 Weight (Pounds): 130 General Appearance: no apparent distress, alert, confused, agitated Bismark Jung M.D. Jan 11, 2018 22:50
[2018-01-12] VITALS: BP 160/69
[2018-01-12] MEDS: Levalbuterol Inh UD 1.25mg/0.5ml HHN SCH ×5 (03:00→19:00)
[2018-01-12 04:00] VITALS: BP 122/65
[2018-01-12 08:00] VITALS: BP 131/51
[2018-01-12] MEDS: HydrALAZINE 25mg tab ORAL SCH (09:22)
[2018-01-12] MEDS: Theophylline ER 100mg ORAL SCH (09:23)
[2018-01-12] MEDS: Heparin 5000 units/ml inj SUBQ SCH (09:26)
[2018-01-12] MEDS: Vitamin A&D Oint 2oz Tube TOPIC SCH (09:31)
[2018-01-12 12:00] VITALS: BP 127/59
--- NOTE | 2018-01-12 13:39 | Infectious Diseases Prog Note ---
Assessment/Plan Assessment/Plan Abx: Levaquin 01/06-01/08 Meropenem 01/09- Assessment: COPD exacerbation -CXR: No acute disease Leukocytosis, resolved -afebrile POssible UTI -u/a wbc 5-10, nit neg, luek +1; ucx >100K E.coli ESBL (S nitrofurantoin, Meropenem, Bactrim) BLE edema -v.duplex no DVT Dementia paranoid schizophrenia Anxiety HLD Vit D deficiency HTN CHF HTN recurrent UTI COPD chronic pain syndrome anemia CAD Plan: -Continue Ertapenem abx d#4/5; upon discharge can transition to PO Bactrim DS 1 tab bid to complete course. -01/11 SP Meropenem #3 -01/08 SP Levaquin #3 -12/27 SP Levaquin day # 5 -Monitor CBC/BMP, temperatures -aspiration precautions Thank you for this consultation. Will continue to follow along with you. Discussed with RN. Subjective Allergies: Coded Allergies: No Known Allergies (Unverified , 07/31/16) Subjective afebrile no leukocytosis bcx neg Objective Vital Signs Last 24 Hour Vital Signs Date Time Temp Pulse Resp B/P (MAP) Pulse Ox O2 Delivery O2 Flow Rate FiO2 01/12/18 11:18 66 18 98 Nasal Cannula 2.0 28 01/12/18 11:11 65 18 98 Nasal Cannula 2.0 28 01/12/18 09:22 131/51 01/12/18 08:08 71 18 99 Nasal Cannula 2.0 28 01/12/18 08:05 68 18 Nasal Cannula 2.0 28 01/12/18 08:03 68 18 98 Nasal Cannula 2.0 28 01/12/18 08:01 Nasal Cannula 2.0 28 01/12/18 08:00 97.7 66 19 131/51 98 Nasal Cannula 2.0 97.7 01/12/18 05:40 142/53 01/12/18 04:00 98.2 79 19 122/65 100 Nasal Cannula 2.0 98.2 01/12/18 03:10 Nasal Cannula 2.0 28 01/12/18 03:10 Nasal Cannula 2.0 28 01/12/18 00:00 98.2 85 19 160/69 95 Room Air 98.2 01/11/18 23:29 93 20 99 Nasal Cannula 2.0 28 01/11/18 23:25 91 22 93 Room Air 21 01/11/18 22:31 135/98 01/11/18 20:42 171/68 01/11/18 20:00 97.5 70 18 171/68 96 Room Air 97.5 01/11/18 19:28 88 20 99 Nasal Cannula 2.0 28 01/11/18 19:17 84 18 Room Air 21 01/11/18 19:17 84 18 96 Room Air 21 01/11/18 19:17 Room Air 21 01/11/18 16:00 97.1 114 156/79 95 Room Air 97.1 Height (Feet): 5 Height (Inches): 0.00 Weight (Pounds): 130 Objective HEAD AND NECK: Sclerae anicteric. CHEST: Rhonchi at the bases. CARDIAC: Tachycardic. The patient is very anxious. ABDOMEN: Soft, nontender, and nondistended. No palpable masses. EXTREMITIES: Some edema, trace, more on the right than the left. NEUROLOGIC: The patient seems to be able to move all extremities. However, she is extremely agitated. Does not communicate whatsoever. She is awake. BREASTS: Examination done with 2 of the female hospital staff in the room. No palpable masses noted. LYMPH NODES: There is no palpable cervical, supraclavicular, axillary, or groin adenopathy. Current Medications Medications (Trade) Dose Ordered Sig/Janessa Route PRN Reason Start Time Stop Time Status Last Admin Dose Admin Acetaminophen (Tylenol) 650 mg Q4H PRN ORAL fever 01/08/18 19:00 02/05/18 18:59 01/12/18 04:30 Clonidine HCl (Catapres Tab) 0.1 mg EVERY 4 HOURS PRN ORAL sbp more than 160 01/08/18 19:09 02/05/18 19:08 Clonidine HCl (Catapres Tab) 0.1 mg EVERY 8 HOURS ORAL 01/08/18 22:00 02/05/18 21:59 01/12/18 05:40 Dextrose (Dextrose 50%) 50 ml STAT PRN IV BS less than 60mg/dl 01/08/18 19:00 02/05/18 18:59 Ertapenem 1 gm/ Sodium Chloride 55 ml @ 110 mls/hr Q24H IVPB 01/11/18 18:00 01/16/18 17:59 01/11/18 18:20 Haloperidol Lactate (Haldol) 5 mg Q6H PRN IM Agitation 01/08/18 19:10 02/07/18 19:09 01/10/18 13:03 Heparin Sodium (Porcine) (Heparin 5000 units/ml) 5,000 units EVERY 12 HOURS SUBQ 01/08/18 21:00 02/05/18 20:59 01/12/18 09:26 Hydralazine HCl (Apresoline) 25 mg Q12HR ORAL 01/09/18 09:00 02/08/18 08:59 01/12/18 09:22 Levalbuterol HCl (Xopenex) 1.25 mg Q4HRT HHN 01/11/18 19:00 01/16/18 18:59 01/12/18 11:12 Nitroglycerin (Ntg) 0.4 mg Q5M X 3 DOSES PRN SL Prn Chest Pain 01/08/18 18:45 02/05/18 18:59 Olanzapine (ZyPREXA) 5 mg BEDTIME ORAL 01/08/18 21:00 02/06/18 20:59 01/11/18 20:42 Ondansetron HCl (Zofran) 4 mg Q6H PRN IVP Nausea & Vomiting 01/08/18 19:00 02/05/18 18:59 Promethazine HCl/ Codeine (Phenergan with Codeine) 5 ml EVERY 6 HOURS PRN ORAL cough 01/08/18 19:12 02/07/18 19:11 Quetiapine Fumarate (SEROquel) 25 mg Q6H PRN ORAL For Anxiety 01/08/18 19:12 02/06/18 19:11 01/10/18 20:40 Temazepam (Restoril) 15 mg HSPRN PRN ORAL Insomnia 01/08/18 19:00 01/13/18 18:59 Theophylline (Armesh-Dur) 100 mg Q12HR ORAL 01/09/18 09:00 02/08/18 08:59 01/12/18 09:23 Vitamin A/Vitamin D (A & D Oint) 1 applic Q12HR TOPIC 01/08/18 21:00 02/06/18 08:59 01/12/18 09:31 Coty De Santiago M.D. Jan 12, 2018 13:39
--- NOTE | 2018-01-12 14:43 | General Progress Note ---
Assessment/Plan Assessment/Plan Schizophrenia Dementia -seroquel prn -zyprexa 5mg qhs -haldol prn -the pt lacks capacity to make decisions. -the pt may not make decisions. Subjective Date patient seen: Jan 12, 2018 Neurologic/Psychiatric: Reports: anxiety, depressed, emotional problems Allergies: Coded Allergies: No Known Allergies (Unverified , 07/31/16) Subjective the pt is anxious however not coming out of bed and is confused Objective Last 24 Hour Vital Signs Date Time Temp Pulse Resp B/P (MAP) Pulse Ox O2 Delivery O2 Flow Rate FiO2 01/12/18 11:18 66 18 98 Nasal Cannula 2.0 28 01/12/18 11:11 65 18 98 Nasal Cannula 2.0 28 01/12/18 09:22 131/51 01/12/18 08:08 71 18 99 Nasal Cannula 2.0 28 01/12/18 08:05 68 18 Nasal Cannula 2.0 28 01/12/18 08:03 68 18 98 Nasal Cannula 2.0 28 01/12/18 08:01 Nasal Cannula 2.0 28 01/12/18 08:00 97.7 66 19 131/51 98 Nasal Cannula 2.0 97.7 01/12/18 05:40 142/53 01/12/18 04:00 98.2 79 19 122/65 100 Nasal Cannula 2.0 98.2 01/12/18 03:10 Nasal Cannula 2.0 28 01/12/18 03:10 Nasal Cannula 2.0 28 01/12/18 00:00 98.2 85 19 160/69 95 Room Air 98.2 01/11/18 23:29 93 20 99 Nasal Cannula 2.0 01/11/18 23:25 91 22 93 Room Air 21 01/11/18 22:31 135/98 01/11/18 20:42 171/68 01/11/18 20:00 97.5 70 18 171/68 96 Room Air 97.5 01/11/18 19:28 88 20 99 Nasal Cannula 2.0 28 01/11/18 19:17 84 18 Room Air 21 01/11/18 19:17 84 18 96 Room Air 21 01/11/18 19:17 Room Air 21 01/11/18 16:00 97.1 114 156/79 95 Room Air 97.1 Intake and Output 01/11/18 01/12/18 19:00 07:00 Intake Total 655 ml 360 ml Balance 655 ml 360 ml Intake Oral 600 ml 360 ml IV Total 55 ml # Voids 3 3 Height (Feet): 5 Height (Inches): 0.00 Weight (Pounds): 130 General Appearance: WD/WN, no apparent distress, alert, confused Bismark Jung M.D. Jan 12, 2018 14:43
[2018-01-12] MEDS ORDERED: NS 500ML ONE (15:39)
[2018-01-12 16:00] VITALS: BP 142/65
[2018-01-12 16:49] VITALS: BP 142/65
--- NOTE | 2018-01-12 17:49 | Cardiology Progress Note ---
Assessment/Plan Assessment/Plan Pulmonary toilet Steroids Breathing treatments BP control with clonidine/hydralazine No signs of heart failure or fluid overload to explain shortness of breath Monitor for aspiration/speech and swallow evaluation G tube for comfort care Supportive care consult Dispo planning Subjective Cardiovascular: Reports: no symptoms Respiratory: Reports: no symptoms Gastrointestinal/Abdominal: Reports: no symptoms Genitourinary: Reports: no symptoms Subjective No acute events, Awake and alert, tolerating PO Objective Last 24 Hour Vital Signs Date Time Temp Pulse Resp B/P (MAP) Pulse Ox O2 Delivery O2 Flow Rate FiO2 01/12/18 16:49 142/65 01/12/18 16:00 98.9 91 18 142/65 99 Nasal Cannula 2.0 98.9 01/12/18 15:25 108 20 98 Nasal Cannula 2.0 28 01/12/18 15:22 104 18 98 Room Air 21 01/12/18 12:00 97.8 72 18 127/59 97 Nasal Cannula 2.0 97.8 01/12/18 11:18 66 18 98 Nasal Cannula 2.0 28 01/12/18 11:11 65 18 98 Nasal Cannula 2.0 28 01/12/18 09:22 131/51 01/12/18 08:08 71 18 99 Nasal Cannula 2.0 28 01/12/18 08:05 68 18 Nasal Cannula 2.0 28 01/12/18 08:03 68 18 98 Nasal Cannula 2.0 28 01/12/18 08:01 Nasal Cannula 2.0 28 01/12/18 08:00 97.7 66 19 131/51 98 Nasal Cannula 2.0 97.7 01/12/18 05:40 142/53 01/12/18 04:00 98.2 79 19 122/65 100 Nasal Cannula 2.0 98.2 01/12/18 03:10 Nasal Cannula 2.0 28 01/12/18 03:10 Nasal Cannula 2.0 28 01/12/18 00:00 98.2 85 19 160/69 95 Room Air 98.2 01/11/18 23:29 93 20 99 Nasal Cannula 2.0 28 01/11/18 23:25 91 22 93 Room Air 21 01/11/18 22:31 135/98 01/11/18 20:42 171/68 01/11/18 20:00 97.5 70 18 171/68 96 Room Air 97.5 01/11/18 19:28 88 20 99 Nasal Cannula 2.0 28 01/11/18 19:17 84 18 Room Air 21 01/11/18 19:17 84 18 96 Room Air 21 01/11/18 19:17 Room Air 21 General Appearance: no apparent distress, severe distress Neck: non-tender Rhythm: NSR Cardiovascular: normal peripheral pulses Respiratory/Chest: chest wall non-tender Abdomen: normal bowel sounds Extremities: normal range of motion Neurologic: medicare sales representative II-XII grossly normal Intake and Output 01/11/18 01/12/18 19:00 07:00 Intake Total 655 ml 360 ml Balance 655 ml 360 ml Intake Oral 600 ml 360 ml IV Total 55 ml # Voids 3 3 Ashwin Marti M.D. Jan 12, 2018 17:49
[2018-01-12] MEDS: Ertapenem 1 GM in NS 55 ML IVPB SCH (18:43)
[2018-01-12] MEDS ORDERED: BACTRIM DS TAB1 EAC1 ORAL (19:25)
--- NOTE | 2018-01-14 10:53 | Discharge Summary ---
Discharge Summary Discharge Summary _ DATE OF ADMISSION: 01/06/2018 DATE OF DISCHARGE: 01/12/2018 REASON FOR ADMISSION: 87 years old female with past medical history significant for hypertension, COPD , CHF, advanced dementia, paranoid schizophrenia, was [facility] from the [facility] with shortness of breath and hypoxemia. Patient was very congested. Patient refused suctioning and nebulizing treatment by paramedics. Upon arrival patient was in respiratory distress, and was crying. Patient required placement on 100% nonrebreathing mask to keep pulse oximetry above 90% . Patient was tachycardic, tachypneic and was wheezing. Patient required mild sedation to provide deep suctioning and breathing treatment. On reassessment, patient appeared more calm with improved breathing. EKG revealed sinus tachycardia with T-wave inversion in lateral leads. Troponin was negative. CXR revealed hyperinflated lung and atelectasis at lower lung [place]. Lactic acid 2.3, troponin negative, pro BNP 135. Creatinine 1.4. WBC -13.1, stable hemoglobin and hematocrit initially. Urinalysis with evidence of UTI. Septic workup initiated with aggressive IV hydration and empiric antibiotics after patient was pancultured. Patient admitted with diagnosis of sepsis, acute respiratory failure, acute COPD exacerbation, urinary tract infection, acute kidney injury CONSULTANTS: racker octave board ID specialist Dr. Washburn mulcher operator/oncologist Dr Silver psychiatrist [facility]SE: Patient admitted. Patient was initially on the IV hydration. Supplemental oxygen provided as needed to keep pulse oximetry above 92%, pulmonary toilet provided with bronchodilator. Suctioning provided on as need basis. Patient started on intravenous steroids with gradual tapering and discontinuation prior to discharge. Trial of theophylline started. Antitussive provided as needed. Chest x-ray revealed no acute cardiopulmonary pathology but demonstrated evidence of COPD. Patient started on empiric antibiotics as per ID recommendations. Urine culture revealed Escherichia coli ESBL. Blood culture were negative. ID specialist recommended to convert IV antibiotics to oral upon discharge to complete the course of antibiotic therapy. Strict aspiration/ reflux precautions were maintained. Swallow evaluation revealed dysphagia with silent aspiration. Due to advanced dementia and advanced age, speech therapist recommended diet for quality of life with strict aspiration/ reflux precautions. G-tube feeding was not recommended in view of advanced age, aspiration risk and psychiatric history. Patient appeared to be malnourished, with high nutritional risk. Dietary recommendations implemented in plan of care. Brim Shaper closely followed. Blood pressure was managed with hydralazine and clonidine, and remained stable. No signs of heart failure or fluid overload to account for shortness of breath. Venous duplex bilateral lower extremity was negative for acute DVT. DVT prophylaxis provided. With IV hydration patient demonstrated anemia : hemoglobin 10.2, hematocrit 30.6. Hematology consult was requested. Office Manager Receptionist did not recommend extensive anemia workup at this time, given advanced age, advanced dementia, refusal of treatment and altered mental status. However mulcher operator stated, that if hemoglobin will be further trending down, then anemia workup will be warranted. Psychiatrist closely followed patient . Psychiatrist diagnosed patient with the paranoid schizophrenia and advanced dementia. Psychiatrist optimized psychiatric medication regimen. Psychiatrist concluded that the patient lacks capacity to make any informed decisions. Renal parameters and electrolytes were closely monitored. Electrolytes were corrected as needed. Nephrotoxins were avoided. Creatinine down to 0.9 with IV hydration. Acute kidney injury resolved. Supportive care provided. Bowel regimen instituted. Patient appeared to be a suitable candidate for comfort/ palliative care, given advanced dementia, advanced age, refusal of treatment. Prior to discharge, pulse oximetry was stable on 2 liters of oxygen via nasal cannula. No signs of respiratory distress. No further wheezing. Hemoglobin 11.1, h hematocrit 34.6., leukocytosis resolved. Patient was stable for discharge back to detention facility FINAL DIAGNOSES: Sepsis Acute respiratory failure-resolved Urinary tract infection with Escherichia coli ESBL COPD exacerbation Dysphagia with aspiration risk Hypertension Congestive heart failure Acute kidney injury-resolved Paranoid schizophrenia Advanced dementia Malnutrition DISCHARGE MEDICATIONS: See Medication Reconciliation list. DISCHARGE INSTRUCTIONS: Patient was discharged to detention facility.Closely monitor counts. Consider comfort /palliative care. I have been assigned to dictate discharge summary for this account. I was not involved in the patient's management. Rosa Maria Patel NP Jan 14, 2018 10:53
--- NOTE | 2018-01-15 12:44 | Cardiology Report ---
APPROVED REPORT EKG Measurement Heart [id number] Sinus tachycardia Abnormal ECG
== END 2018-01-12 20:00 | DRG 871 ==
LOC: EDBD 16:28 → EDBEDREQ 17:06 → EMR 17:19 → 2E 18:05 → EDBEDREQ 19:15 → 2E 01-07 11:01 → 4E 01-08 19:08
DX: A41.9 Sepsis, unspecified organism (principal); J96.00 Acute respiratory failure, unspecified whether with hypoxia or hypercapnia; F20.0 Paranoid schizophrenia; E46 Unspecified protein-calorie malnutrition; J44.1 Chronic obstructive pulmonary disease with (acute) exacerbation; I10 Essential (primary) hypertension; E11.9 Type 2 diabetes mellitus without complications; I25.10 Atherosclerotic heart disease of native coronary artery without angina pectoris; F03.90 Unspecified dementia, unspecified severity, without behavioral disturbance, psychotic disturbance, mood disturbance, and anxiety; E78.5 Hyperlipidemia, unspecified; D64.9 Anemia, unspecified; F41.9 Anxiety disorder, unspecified; E55.9 Vitamin D deficiency, unspecified; Z68.25 Body mass index [BMI] 25.0-25.9, adult; Z78.1 Physical restraint status
CPT/HCPCS: 36415; 71045; 80053; 81003; 82550; 82553; 83605; 83735; 83880; 84100; 84484; 85007; 85025; 87040; 87081; 87086; 87181; 93005; 93970; 94640; 94664; 99285; J7620